=== PATIENT | female | born 1955 | race Caucasian/White ===

== ENCOUNTER 2024-11-20 09:11 | Outpatient (AMB) | payer MEDICARE, SELFPAY ==
--- OUTSIDE RECORDS SUMMARY | 2024-06-09 05:00 | XMS_ITS ---
Author Organization [facility] Address [address] [place] [address] Care Team Providers Care Dean Of Girls Name Role Phone DINAH PRAJAPATI MD Primary Care Provider BRETT Naylor [phone] Encounters Encounter Location Date Provider Diagnosis [facility] [address] [place] [address] 06/09/2024 BRETT SIM Plan Of Treatment No Information Progress Notes * OLEG ULLOALATRELLB: 953 (69 yo F)Acc No.[id number]:06/09/2024 Progress Notes Patient: PERI WILBURN Provider: Connie Sim MD :1955 A ge:69 Y S ex:Female Date:06/09/2024 Address:[facility] [address], [address] [place], [place] [id number] Pcp:DINAH PRAJAPATI MD * Electronic signature of NICK TAPIA MD on 11/20/2024 at 09:56 AM EDT Sign off status: Pending * Provider: Connie Sim MD Date: 0 06/09/2024 Generated for Printi ng/Faanibalg/eTransmitting on: 0 11/20/2024 09:56 AM EDT
--- OUTSIDE RECORDS SUMMARY | 2024-07-04 09:15 | XMS_ITS ---
Author Organization [facility] Address [address] [place] [address] Care Team Providers Care Gamb Cutter Name Role Phone DINAH PRAJAPATI MD Primary Care Provider BRETT Naylor [phone] REASON FOR VISIT left message Encounters Encounter Location Date Provider Diagnosis [facility] [address] [place] [address] 07/04/2024 BRETT SIM Plan Of Treatment No Information Progress Notes * ALF ULLOAB: 953 (69 yo F)Acc No.[id number]:07/04/2024 Progress Notes Patient: PERI WILBURN Provider: Connie Sim MD :1955 A ge:69 Y S ex:Female Date:07/04/2024 Address:[facility] [address], [address] [place], [place] [phone] Pcp:DINAH PRAJAPATI MD Subjective: * Chief Complaints: * L eft message * Electronic signature of NICK TAPIA MD on 11/20/2024 at 09:56 AM EDT Sign off status: Pending * Provider: Connie Sim MD Date: 07/04/2024 Generated for Elvirai matthew/Kavitha/eTransmitting on: 0 11/20/2024 09:56 AM EDT
--- OUTSIDE RECORDS SUMMARY | 2024-09-15 10:00 | XMS_ITS ---
Author Organization [facility] Address [address] [place] [address] Care Team Providers Care Process Description Writer Name Role Phone Ryan Loving Primary Care [...] CAPSULE BY MO UTH EVERY DAY Active Lisinopril 40 MG TAKE [...] 09/15/2024 Encounters Encounter Location Date Provider Diagnosis [address] [address] 09/15/2024 Ryan Loving Mixed hyperlipidemia E78.2 ; [...] system. There are likely to be multiple high school biology teacher inaccuracies despite chart review. PLAN OF TREATMENT [...] 1 CAPSULE BY MO UTH EVERY DAY Lisinopril 40 MG TAKE 1 [...] to fill the prescription in lesser amount. [facility] verified. Other This chart has been transcribed by a computerized dictation system. There are likely to be multiple high school biology teacher inaccuracies despite chart review. Pending Test Test Name Order Date LP+Non-HDL Cholesterol-[id number] 09/15/2024 Hepatic Function Panel [id number] 2024 Next Appt Details Follow Up: 3 Months, Reason: Follow up with [facility] Provider Name:Ryan morillo, 12/17/2024 01:00:00 PM, [address] [place] [address], [phone], Progress Notes * Examination Category Sub-Category Detail [...]
--- OUTSIDE RECORDS SUMMARY | 2024-10-02 08:45 | XMS_ITS ---
Author Organization [facility] Address [address] [place] [phone] Care Team Providers Care Thread Cutter Tender Name Role Phone Ryan Loving Primary Care Provider [phone] ALLERGIES Allergen (clinical drug ingredient) Drug/Non Drug [...] Notes Problem Acute diverticulitis (K57.92) Active confirmed 449980455 VITAL SIGNS Blood pressure systolic 132 mm Hg 10/03/19 25 Blood pressure diastolic 78 mm Hg 025 Heart Rate 80 /min 10/02/2024 Height 66 in 10/02/2024 Weight 199.0 lbs 10/02/2024 BMI 32.12 kg/m2 10/02/2024 Encounters Encounter Location Date Provider Diagnosis [address] [address] 10/02/2024 Ryan Loving Acute diverticulitis K57.92 ; [...] to fill the prescription in lesser amount. [facility] verified. 10/02/2024 Other This chart has been transcribed by a computerized dictation system. There are likely to be multiple logistics director inaccuracies despite chart review. PLAN OF TREATMENT [...] to fill the prescription in lesser amount. [facility] verified. Other This chart has been transcribed by a computerized dictation system. There are likely to be multiple logistics director inaccuracies despite chart review. Pending Test Test Name Order Date X ray : Hip, left 10/02/2024 Next Appt Details Follow Up: as scheduled, Suzanne son: Provider Name:Ryan morillo, 12/17/2024 01:00:00 PM, [address] [place] [address], [phone], Progress Notes * Examination Category Sub-Category Detail [...]
--- OUTSIDE RECORDS SUMMARY | 2024-10-05 04:42 | XMS_ITS ---
Author Organization [facility] Address [address] [place] [address] Care Team Providers Care Airport Control Operator Name Role Phone Ryan Loving Primary [...] Location Date Provider Diagnosis [facility] [address] [place] [address] 10/06/19 Ryan Loving PLAN OF TREATMENT Medication Medication Name Sig Start Date Stop Date Notes Cipro 500 MG 1 tablet Orally Twic e a day for 10 days 10/05/2024 metroNIDAZOLE 500 MG 1 tablet Orally Thr ee times a day for 10 day(s) 10/05/2024 Next Appt Details Provider Name:Ryan morillo, 12/17/2024 01:00:00 PM, [address] [place], [phone],
--- OUTSIDE RECORDS SUMMARY | 2024-10-13 05:45 | XMS_ITS ---
Author Organization Inder Shearer, Address [address] [place] [phone] Care Team Providers Care Night Club Manager Name Role Phone Ryan Loving Primary Care Provider ALLERGIES Allergen (clinical drug ingredient) Drug/Non Drug Allergy documented on EMR Reaction Allergy Type Onset Date Status Shrimp Flavor vomiting Drug Allergy Act dell RESULTS Component Value Reference Range Notes Urinalysis, Complete-[id number] Reviewed date:10/14/2024 07:01:46 PM Interpretation: Performing Lab:[facility] [address], [place], Phone - [phone], Director - Janae Notes/Report: Clinical Information:SRC: Clinical Information:SRC: Specific [place] 1.024 1.005-1.030 pH 6.0 5.0-7.5 Urine-Color Yellow [...] None seen/Few Yeast Trichomonas Comment Urine Culture, [id number] Reviewed date:10/14/2024 07:01:46 PM Interpretation: Performing Lab:[facility] [place], [address] [facility], [place], Phone - [phone], Director - Janae Notes/Report: Clinical Information:SRC:YESSENIA Clinical [...] Problem Left renal mass (N28.89) Active confirmed [id number] VITAL SIGNS Blood pressure systolic 150 mm Hg 10/14/19 25 Blood pressure diastolic 80 mm Hg 025 Heart Rate 78 /min 10/13/2024 Height 66 in 10/13/2024 Weight 196.8 lbs 10/13/2024 BMI 31.76 kg/m2 10/13/2024 Encounters Encounter Location Date Provider Diagnosis [address] [address] 10/13/2024 Ryan Loving Left renal mass N28. [...] system. There are likely to be multiple adoption coordinator inaccuracies despite chart review. PLAN OF TREATMENT [...] system. There are likely to be multiple adoption coordinator inaccuracies despite chart review. Pending Test Test Name Order Date MRI : Abdomen with and without Contrast 10/13/2024 Next Appt Details Follow Up: as scheduled, [place] son: Provider Name:Ryan morillo, 12/17/2024 01:00:00 PM, [address] [place] [address], [phone], Progress Notes * Examination Category Sub-Category Detail Notes Category Not es General Examination GENERAL APPEARANCE: in no ac [place] distress, well developed, well nourished HEAD: normocephalic, [...] mg 4 times a day by her primary education professor and needs a refill on the medication. [...]
--- OUTSIDE RECORDS SUMMARY | 2024-10-28 05:00 | XMS_ITS ---
Author Organization Inder Shearer Address [address] [place] [phone] Care Team Providers Care Software Publisher Name Role Phone Ryan Loving Primary Care [...] Atenolol 50 MG TAKE 1 TABLET BY [facility] EVERY DAY for 90 Active Atorvastatin Calcium [...] Fenofibrate 160 MG TAKE 1 TABLET BY [facility] EVERY DAY for 90 Active Famotidine 40 MG TAKE 1 TABLET BY [facility] DAILY AT BEDTIME Active Omeprazole 20 MG TAKE 1 CAPSULE BY [facility] EVERY DAY Active Jardiance 10 MG 1 tablet Orally Once a day for 30 day(s) Active Gabapentin 600 MG TAKE 1 TABLET BY [facility] EVERY DAY Active oxyCODONE HCl 5 MG 1 tablet as needed Orally Twice a day partial fill upon request for 30 days 10/28/2024 Active Gabapentin 800 MG 1 tablet Orally 3 ti mes a day for 30 day(s) Active Sertraline HCl 50 MG TAKE 1 TABLET BY [facility] EVERY DAY Active SOCIAL HISTORY Tobacco Use: [...] Encounter Location Date Provider Diagnosis Inder Shearer, [address] [address] 10/28/2024 Ryan Loving Mixed hyperlipidemia E78.2 ; [...] system. There are likely to be multiple machine tender inaccuracies despite chart review. PLAN OF [...] 20 MG TAKE 1 CAPSULE BY [facility] EVERY DAY Jardiance 10 MG 1 tablet [...] 50 MG TAKE 1 TABLET BY [facility] EVERY DAY Treatment Notes Assessment Notes Lumbar [...] to fill the prescription in lesser amount. [facility]. Other This chart has been transcribed by a computerized dictation system. There are likely to be multiple machine tender inaccuracies despite chart review. Next Appt Details Follow Up: as scheduled, [place] son: Provider Name:Ryan morillo, 12/17/2024 01:00:00 PM, [address] [place] [address], [phone], Progress Notes * Examination Category Sub-Category Detail Notes Category Not es General Examination GENERAL APPEARANCE: in no ac [place] distress, well developed, well nourished HEAD: normocephalic, [...]
[2024-11-20 09:30] VITALS: BMI 31.6
--- NOTE | 2024-11-20 09:30 | A.SPINEOV_ITS ---
Vital Signs 11/20/24 09:30 Height 5 ft 5 in Weight 190 lb BMI 31.6 Intake Visit Reasons: lbp Intake Note: Ms. Pisano is here today c/o back and leg pain. Astrobiologist Required: No Allergies No Known Allergies Allergy (Verified 11/20/24 09:31) Physical Exam Vital Signs: BMI result Body Mass Index 31.6 Assessment & Plan Assessment & Plan (1) Lumbar disc herniation: Code(s): M51.26 - Other intervertebral disc displacement, lumbar region Category: Medical Plan Dear Dr Loving, This is a very nice 69-year-old female who self-referred today for evaluation of pain radiating from her low back down into her anterior medial thigh. She reports that last Katrina Leigh in 2023 she was standing making meals and felt an acute onset of pain in her left abdomen that radiated around to her back. It took her breath away, it sounds like she had a vasovagal type event and she was brought to the hospital and was subsequently discharged. Within a week or so the pain transitioned into her right-sided low back and then radiated down along her anterior thigh in the middle toward the more medial side. The pain is aggravated with standing and walking. It gets better when she sits down. In fact riding in a car she is completely pain-free so she often will take long car rides just to help with the pain. 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 She was also sent to interventional pain management in [place] where she underwent an injection. The injection in her lumbar spine went well and she was pain-free in quite happy with that. Unfortunately it wore off. She is then subsequently got an injection in her hip without any signs of relief. Part of her workup included MRIs not only of the lumbar spine but the pelvis. Her lumbar spine MRI showed diffuse degenerative changes with multiple herniated discs. The patient's pelvic MRI apparently showed some issues with gluteal tendinopathy as well as arthritis in her hip. She went to see a surgeon in [facility] and was told that her hip was okay and did not need surgery. She was subsequently sent back to physical therapy and started on meloxicam. When she was on the meloxicam the pain was significantly better almost 2 where she thought things were back to normal but when she started physical therapy again the pain all returned. She subsequently stopped that. She comes in today after seeing us on an ad in a newspaper Flyer and was wondering if we could do anything to help her with minimally invasive techniques. She describes the pain currently as a dull ache/toothache. PMH: Hypertension, she is prediabetic, managed on Jardiance, high cholesterol, history of ulcerative colitis in his maintained on Rinvoq and has more less been symptom-free now for quite some time. She has never had surgery in her colon. History of osteoporosis on Repatha, history of some kind of workup for liver disease, sounds like she has NAFLD. Denies any history of cardiopulmonary, renal, bleeding disorders, blood clots, cancer, major abdominal surgery or infec tions. Social hx: Does not smoke, drink use any recreational drugs Medications: Repatha, atenolol, atorvastatin, Zetia, Pepcid, fenofibrate, gabapentin, Jardiance, lisinopril, losartan, omeprazole, Repatha, Rinvoq, sertraline, meloxicam, multivitamin, probiotic, calcium Allergies: None Physical exam: She walks with an antalgic gait but also has left knee pain so I think she is favoring the left knee more than the right leg. No pain with internal or external rotation of her hip. She does have some pain in her back with hip flexion and has positive straight leg raise at about 45 degrees which will give her pain into her anterior thigh. Motor examination 5/5 throughout lower extremities. Reflexes slightly reduced at the right patella, absent bilaterally at the Achilles. Imaging review: There is a lumbar MRI done at [facility] in April of this year showing multilevel degenerative disc disease with Modic endplate changes at multiple levels. At L4-5 she has bilateral lateral recess stenosis. At L3-4 on the right she has a small disc herniation which is hanging down behind the vertebral body ever so slightly but is compressing the right L4 nerve root. There is a component that extends into the right L3 foramen as well. At L2-3 she has some mild lateral recess stenosis. At L1-2 there is a herniated disc fragment which is extending down behind the vertebral body into the lateral recess near the axilla compressing the right L2 nerve root. Impression: 69-year-old female presents with acute onset of back pain and right anterior thigh pain which is aggravated with standing and walking. She was initially worked up for her hip but told at the [facility] office that it was not her hip. She was managed well on meloxicam for awhile until she started physical therapy which made things only worse. She is very frustrated because she can not do simple things like even just walking in a grocery store gives her significant discomfort. She did see pain management and underwent an injection in her lumbar spine which did give her significant relief for quite some time. No follow up injection was done, the doctor told her he could not do anything more for her. She is here today to be evaluated. She certainly has reasons to suspect this could be coming from her lumbar spine. In addition to the fact that the pain got so much better with a lumbar epidural injection, there are disc herniations at multiple levels of her lumbar spine on the right side. Many of them match the dermatome distribution when that would go into the anterior thigh. However, as we know, disc herniations have a tendency to resolve on their own and can disappear. Therefore before we can consider operating on her we will need to get an updated lumbar MRI to make sure that we are still dealing with up-to-date accurate anatomical picture. Additionally I will get a copy of the injection note from the pain management doctor to confirm where he injected as it gave her so much benefit. Once her MRIs done I will see her back. Thank you for allowing us to care for your patient. The total time spent with this visit with this patient was 45 minutes reviewing history, physical exam, lumbar imaging review, and implementation of treatment plan or further diagnostic testing Ryan Blakely MD,PhD [facility] [place] Orders: Orders MR lumbar spine wo con Today M51.26 - Other intervertebral disc displacement, lumbar region Coding Level of Care Code New Pt Level 4 (57580) Diagnoses Lumbar disc herniation M51.26
--- OUTSIDE RECORDS SUMMARY | 2024-11-20 09:56 | XMS_ITS | Encounter Summary ---
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 Name Role Phone Ryan Loving Primary Care Provider [phone] Encounter Details Date Type Department Care Team (Late st Contact Info) Description 03/11/2018 Ophthalmology Data Conversion [facility] Ophthalmology [address] [place] [id number] Coral Oconnor MD [address] [place] [id number] Social History Tobacco Use Types Packs/Day Years Used Date Smoking Tobacco: Never Assessed Comments Unknown Sex and Gender Information Value Date Recorded Sex Assigned at Female 03/17/2021 8:36 AM EST Legal Sex Female 6:34 PM EDT Gender Identity Female 03/17/2021 8:36 AM EST Sexual Orientation Straight 03/17/2021 8: 36 AM EST documented as of this encounter Plan of Treatment Not on file documented as of this encounter Visit Diagnoses Not on filedocumented in this encounter Care Teams Pretzel Twisting Machine Operator Relationship Specialty Start Date End Date Ryan Loving PCP - General Internal Medicine 01/30/21 documented as of this encounter
--- OUTSIDE RECORDS SUMMARY | 2024-11-20 09:56 | XMS_ITS | Patient Health Record ---
Author Organization Inder Shearer Address [address] [place] [id number] Care Team Providers Care Glass Frame Fitter Name Role Phone Ryan Loving Primary Care Provider ALLERGIES Allergen (clinical drug ingredient) Drug/Non Drug Allergy documented on EMR Reaction Allergy Type Onset Date Status Shrimp Flavor vomiting Drug Allergy Act dell RESULTS Component Value Reference Range Notes Hemoglobin [id number] Reviewed date:07/09/2024 08:43:26 AM Interpretation: Performing Lab:[facility], [address] [facility], Phone - [phone], Director - MDYamilethdry Notes/Report: Hemoglobin A1c 6.6 4.8-5.6 % . Prediabetes: 5.7 - 6.4 Diabetes: >6.4 Glycemic control for adults with diabetes: <7.0 Lipid Panel-[id number] Reviewed date:07/09/2024 08:43:26 AM Interpretation: Performing Lab:[facility], [facility] [place], Phone - [phone], Director - MDJodry Notes/Report: Cholesterol, Total 160 100-199 mg/dL Triglycerides 337 0-149 mg/dL HDL Cholesterol 6 >39 mg/dL Verified b y repeat analysis VLDL Cholesterol King 57 5-40 mg/dL LDL Chol Calc ([facility]) 97 0-99 mg/dL LDL Calc Comment: Comp. Metabolic Panel ([id number] Reviewed date:07/09/2024 08:43:26 AM Interpretation: Performing Lab:[facility], [address] [facility] [place], Phone - [phone], Director - MDJodry Notes/Report: Glucose 115 70-99 [...] 44-121 IU/L AST (SGOT) 44 0-40 IU/L Hemoglobin Q6c-[id number] Reviewed date:04/15/2024 07:14:40 AM Interpretation: Performing Lab:[facility] [address] [place] [address], Phone - [phone], Director - Janae Notes/Report: Hemoglobin A1c 6.7 4.8-5.6 % . Prediabetes: 5.7 - 6.4 Diabetes: >6.4 Glycemic control for adults with diabetes: <7.0 Lipid Panel-[id number] Reviewed date:04/15/2024 07:14:40 AM Interpretation: Performing Lab:[facility]na Garber [address] [place] [address], Phone - [phone], Director - Janae Notes/Report: Cholesterol, Total 181 100-199 mg/dL Triglycerides 491 0-149 mg/dL HDL Cholesterol 6 >39 mg/dL VLDL Cholesterol King 82 5-40 mg/dL LDL Chol Calc ([facility]) 93 0-99 mg/dL LDL Calc Comment: Comp. Metabolic Panel (13)-[id number] Reviewed date:04/15/2024 07:14:40 AM Interpretation: Performing Lab:Julianna Garber [address] [place] [address], Phone - [phone], Director - Janae Notes/Report: Glucose 129 70-99 mg/dL BUN 16 8-27 mg/dL Creatinine 0.92 0.57-1.00 mg/dL eGFR 67 >59 mL/min/1.73 BUN/Creatinine Ratio 17 12-28 Sodium 140 134-144 mmol/L Potassium 4.5 3.5-5.2 mmol/L Chloride 104 96-106 mmol/L Carbon Dioxide, Total 20 20-29 mmol/L Calcium 9.6 8.7-10.3 mg/dL Protein, Total 6.9 6.0-8.5 g/dL Albumin 4.4 3.8-4.8 g/dL Globulin, Total 2.5 1.5-4.5 g/dL Bilirubin, Total 0.3 0.0-1.2 mg/dL Alkaline Phosphatase 46 44-121 IU/L AST (SGOT) 39 0-40 IU/L MM Digital Mammo Screening Reviewed date:04/03/2024 07:29:30 PM Interpretation: Performing Lab: Notes/Report: PROCEDURE: MM Digital Mammo Screening INDICATION: Screening for breast cancer. No known palpable abnormalities. COMPARISON: Prior studies dating back to 03/08/2021 TECHNIQUE: Full-field digital CC and MLO 3D tomosynthesis images of both breasts were acquired. Computer-aided detection (CAD) was utilized in the interpretation of this study. DENSITY: The breast tissue is almost entirely fatty. FINDINGS: No suspicious masses, suspicious microcalcifications, or areas of architectural distortion are seen in either breast to suggest malignancy. There is a stable small mass in the retroareolar right breast. IMPRESSION: No mammographic evidence of malignancy. RECOMMENDATION: Annual mammographic screening BI-RADS: 2 (Benign) Lay letter mailed to patient WSN: [id number] Ordering Physician: Ryan Loving Dictated By: Shelley Looney MD Hip Comp 2 Views Left Reviewed date:10/06/2024 08:30:31 AM Interpretation: Performing Lab: Notes/Report: Hip Comp 2 Views Left Reason: left groin pain COMPARISON: 02/24/2024 FINDINGS: No fracture or dislocation. No lytic or blastic lesions. Well preserved joint space. Normal femoral head contour without evidence of avascular necrosis. Normal soft tissues. IMPRESSION: Normal. WSN: [id number] Ordering Physician: Ryan Loving Dictated By: Jacob Verduzco MD Urinalysis, Complete-[id number] Reviewed date:10/14/2024 07:01:46 PM Interpretation: Performing Lab:[facility], [address] [place] [address], Phone - [phone], Director - Janae Notes/Report: Clinical Information:SRC: Clinical Information:SRC: Specific [place] 1.024 1.005-1.030 pH 6.0 5.0-7.5 Urine-Color Yellow [...] None seen/Few Yeast Trichomonas Comment Urine Culture, Routine-[id number] Reviewed date:10/14/2024 07:01:46 PM Interpretation: Performing Lab:[facility], [address] [place] [address], [place], Phone - [phone], Director - Janae Notes/Report: Clinical Information:SRC: Clinical Information:SRC: Urine Culture, Routine Final report Result 1 No growth REASON FOR REFERRAL Reason Evaluate and treat / / MRI Available in CIS Diagnosis 1 Lumbar radiculopathy (M54.16) Referral Organization Ryan Loving Md Referring Provider First Name Ryan Referring Provider Last Name Inder Referring Provider Speciality Internal M edicine Referred Provider Specialty Physical The rapist General Notes Fely Palmer 09:18:18 AM EST > believe what she means is at wing, I will fa to the, , Miriam Hodge 03/11/2024 10:31:04 AM EST > resent because they said they didnt get the frist few pages Clinical Notes [facility], P: , F: [phone] Referral Priority Routine MEDICATIONS Medication SIG (Take, Route, Frequency, Duration) Notes Start Date End Date Status Fenofibrate 160 MG TAKE 1 TABLET BY LISA TH EVERY DAY for 90 Active Atenolol 50 MG TAKE 1 TABLET BY LISA TH EVERY DAY for 90 Active Gabapentin 800 MG TAKE 1 TABLET BY LISA TH THREE TIMES DAILY for 30 Active Atorvastatin Calcium 80 MG TAKE 1 TABLET BY MOUTH DAILY for 90 Active Klor-Con M10 10 MEQ 1 tablet Orally QD Active Atenolol 50 MG TAKE 1 TABLET BY LISA EVERY DAY Active Losartan Potassium 25 MG TAKE 1 TABLET B Y MOUTH DAILY for 90 Active Losartan Potassium 25 MG 1 tablet Orally Once a day for 90 Days Active Lisinopril 10 MG TAKE 1 TABLET BY LISA TH EVERY DAY Orally Once a day for 90 days Active Lisinopril 10 MG TAKE 1 TABLET BY LISA EVERY DAY Active Ezetimibe 10 MG TAKE 1 TABLET BY LISA TH DAILY for 90 Active Atorvastatin Calcium 80 MG 1 tablet Oral ly Once a day for 90 Days Active Sertraline HCl 50 MG TAKE 1 TABLET BY [place] [facility] EVERY DAY for 90 Active Fenofibrate 160 MG TAKE 1 TABLET BY LISA EVERY DAY Active Dicyclomine HCl 10 MG 1 capsules Orally Four times a day for 30 days Active Repatha 140 MG/ML 1 ml Subcutaneous ev quinn 2 weeks for 90 Days Active Lisinopril 40 MG [facility] Active Clobetasol Propionate 0.05 % 1 applicati on to affected area Externally Twice a day Active oxyCODONE HCl 5 MG 1 tablet as needed Orally Twice a day partial fill upon request for 30 days 10/28/2024 Active Lisinopril 40 MG TAKE 1 TABLET BY LISA EVERY DAY for 90 Active Sertraline HCl 50 MG TAKE 1 TABLET BY [facility] EVERY DAY Active Famotidine 40 MG TAKE 1 TABLET BY LISA DAILY AT BEDTIME Active Omeprazole 20 MG TAKE 1 CAPSULE BY [facility] EVERY DAY Active Cyclobenzaprine HCl 10 MG 1 tablet as ne eded Orally 3 times a day Active Rinvoq 15 MG 1 tablet Orally Once a day Active Jardiance 10 MG TAKE 1 TABLET BY LISA EVERY DAY for 90 Active Famotidine 40 MG TAKE 1 TABLET BY LISA DAILY AT BEDTIME for 90 Active IMMUNIZATIONS Vaccine Route Administration Date Status Comme nts *Influenza (Fluarix Quad) IM Intramuscular 12/05/2017 Admi nistered *Influenza (Fluarix Quad) IM Intramuscular 12/09/2018 Admi nistered *Influenza (Fluarix Quad) IM Intramuscular 12/22/2019 Admi nistered *Influenza (Fluarix Quad) IM Intramuscular 12/21/2020 Admi nistered *Influenza (Fluarix Quad) Unknown 01/11/2022 Administer ed Influenza (Flucelvax Quad) IM Intramuscular 11/26/2016 Adm inistered Influenza (Fluvirin) IM Intramuscular 12/17/2012 Administe red Influenza (Fluvirin) IM Intramuscular 11/30/2015 Administe red Influenza no Preserv 3 and > Unknown 12/06/2014 Pending Pneumococcal IM Intramuscular 03/10/2014 Administered Pneumococcal IM Intramuscular 12/22/2019 Administered PPD (Planted) TD Transdermal 03/09/2013 Administered PPD (Planted) ID Intradermal 03/08/2014 Administered Prevnar 20 Unknown 01/11/2022 Administered SOCIAL HISTORY Tobacco Use: Social History Observation [...] Interpretation Negative Section Notes: age 18-53, 1PPD age 18-53, 1PPD age 18-53, 1PPD age 18-53, 1PPD age 18-53, 1PPD age 18-53, 1PPD age 18-53, 1PPD age 18-53, 1PPD age 18-53, 1PPD age 18-53, 1PPD age 18-53, 1PPD age 18-53, 1PPD age 18-53, 1PPD age 18-53, 1PPD age 18-53, 1PPD age 18-53, 1PPD age 18-53, 1PPD age 18-53, 1PPD age 18-53, 1PPD age 1853, 1PPD age 1853, 1PPD age 1853, 1PPD age 1853, 1PPD PROBLEMS Problem Type ICD Code Onset Dates Problem Status W/U Status Risk SNOMED Code Notes Problem Depression (F32.9) Active confirmed 354 57262 Problem Anxiety (F41.9) Active confirmed 890853 02 Problem Left sided sciatica (M54.32) Active confirmed 618320094274700 Problem Psoriasis (L40.9) Active confirmed 9014 002 Problem Acute diverticulitis (K57.92) Active confirmed 198765036 Problem Mixed hyperlipidemia (E78.2) Active confirmed 590187927 Problem Essential hypertension (I10) Active confirmed 09765644 Problem Chronic fatigue (R53.82) Active confirmed 82049724 Problem Gastroesophageal reflux disease without esophagitis (K21.9) Active confirmed 155344341 Problem Primary osteoarthritis involving multiple joints (M15.0) Active confirmed 044689830 Problem Primary osteoarthritis of left knee (M17.12) Active confirmed 002744527889182 Problem Gout, unspecified cause, unspecified chronicity, unspecified site (M10.9) Active confirmed 80476132 Problem Contact dermatitis, contact dermatitis due to unspecified agent, unspecified contact dermatitis (L25.9) Active confirmed 06866955 Problem Spinal stenosis of lumbosacral region (M48.07) Active confirmed 57335239 Problem Ulcerative colitis with complication, unspecified location (K51.919) Active confirmed 14640686 Problem Lumbar radiculopathy (M54.16) Active confirmed 169034322 Problem Irritable bowel syndrome, unspecified type (K58.9) Active confirmed 86021298 Problem Type 2 diabetes mellitus without complication, without long-term current use of insulin (E11.9) Active confirmed 577672721 Problem Left renal mass (N28.89) Active confirmed 202351597 Problem At increased risk of exposure to COVID-19 virus (Z91.89) Active confirmed 081898110 Problem Major depressive disorder with single episode, 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) Active confirmed Single epi sode of major depression in full remission (93952072) Problem Leg cramps, sleep related (G47.62) Active confirmed 130231120 VITAL SIGNS Heart Rate 80 /min 10/28/2024 Blood pressure diastolic 80 mm Hg 10/28/2024 Height 66 in 10/28/2024 Blood pressure systolic 140 mm Hg 10/28/2024 Weight 193.6 lbs 10/28/2024 BMI 31.24 kg/m2 10/28/2024 Encounters Encounter Location Date Provider Diagnosis [address] [address] [facility] [address] [address] 01/21/2024 Ryan Juniorangeli Essential hypertensi on I10 ; Mixed hyperlipidemia E78.2 ; Ulcerative colitis with complication, unspecified location [...] and Primary osteoarthritis of left knee M17.[address] [address] 01/21/[address] [address] 02/24/2024 Ryan Loving Essential hypertensi on I10 ; Mixed hyperlipidemia E78.2 ; Ulcerative colitis with complication, unspecified location [...] ; Primary osteoarthritis of left knee M17.12 ; Lytic bone lesion of hip M89.8X5 and Left sided sciatica M54.[address] [address] 03/11/2024 Ryan Juniorangeli Mixed hyperlipidemia E78.2 ; Lumbar radiculopathy M54.16 [...] Primary osteoarthritis of left knee M17.12 and Left sided sciatica M54.[address] [address] 03/23/2024 Ryan Loving Essential hypertensi on I10 ; Mixed hyperlipidemia E78.2 ; Ulcerative colitis with complication, unspecified location [...] and Primary osteoarthritis of left knee M17.[address] [address] 04/22/2024 Ryan Loving Mixed hyperlipidemia E78.2 ; Lumbar [...] and Primary osteoarthritis of left knee M17.[address] [address] 04/23/2024 Ryan Loving [address] [address] 05/06/2024 Ryan Loving [address] [address] 05/21/2024 Ryan Loving Mixed hyperlipidemia E78.2 ; [...] knee M17.12 and Annual physical exam Z00.[address] [address] 07/16/2024 Ryan [facility] Mixed hyperlipidemia E78.2 ; Lumbar radiculopathy M54.16 [...] and Primary osteoarthritis of left knee M17.[address] [address] 08/20/2024 Ryan Juniorjavierm Mixed hyperlipidemia E78.2 ; Lumbar radiculopathy M54.16 [...] and Primary osteoarthritis of left knee M17.[address] [address] 09/15/2024 Ryan Pacheco[facility]ierm Mixed hyperlipidemia E78.2 ; Lumbar radiculopathy M54.16 [...] and Primary osteoarthritis of left knee M17.[address] [address] 10/02/2024 Ryan Loving Acute diverticulitis K57.92 ; Left groin pain R10.32 and Left sided sciatica M54.[address] [address] 10/05/2024 Ryan Loving [address] [address] 10/13/2024 Ryan Loving Left renal mass N28. 89 ; Left flank pain R10.9 ; Frequent urination R35.0 ; Irritable bowel syndrome, unspecified type K58.9 and Left sided sciatica M54.[address] [address] 10/28/2024 Ryan Loving Mixed hyperlipidemia E78.2 ; [...] Treatment Notes Treatment Clinical Notes Section Notes 03/11/2024 Mixed hyperlipidemia (ICD-10 - E78.2) 02/24/2024 Essential hypertension (ICD-10 - I10) 01/21/2024 Essential hypertension (ICD-10 - I10) 10/28/2024 Mixed hyperlipidemia (ICD-10 - E78.2) 10/13/2024 Left renal mass (ICD-10 - N28.89) 10/13/2024 Left flank pain (ICD-10 - R10.9) 10/02/2024 Left groin pain (ICD-10 - R10.32) 10/02/2024 Acute diverticulitis (ICD-10 - K57.92) 09/15/2024 Mixed hyperlipidemia (ICD-10 - E78.2) 08/20/2024 Mixed hyperlipidemia (ICD-10 - E78.2) 07/16/2024 Mixed hyperlipidemia (ICD-10 - E78.2) 03/11/2024 Lumbar radiculopathy (ICD-10 - M54.16) 03/23/2024 Essential hypertension (ICD-10 - I10) 05/21/2024 Mixed hyperlipidemia (ICD-10 - E78.2) 04/22/2024 Mixed hyperlipidemia (ICD-10 - E78.2) 10/28/2024 Lumbar [...] verified. 10/28/2024 Essential hypertension (ICD-10 - I10) 10/13/2024 Frequent urination (ICD-10 - R35.0) 10/02/2024 Left sided sciatica (ICD-10 - M54.32) [...] to fill the prescription in lesser amount. [facility] verified. 09/15/2024 Lumbar radiculopathy (ICD-10 - M54.16) In [...] to fill the prescription in lesser amount. [facility] verified. 09/15/2024 Essential hypertension (ICD-10 - I10) 08/20/2024 Lumbar radiculopathy (ICD-10 - M54.16) In [...] to fill the prescription in lesser amount. [facility] verified. 08/20/2024 Essential hypertension (ICD-10 - I10) 07/16/2024 Lumbar radiculopathy (ICD-10 - M54.16) In [...] to fill the prescription in lesser amount. [facility] verified. 07/16/2024 Essential hypertension (ICD-10 - I10) 05/21/2024 Lumbar radiculopathy (ICD-10 - M54.16) 05/21/2024 Essential hypertension (ICD-10 - I10) 04/22/2024 Lumbar radiculopathy (ICD-10 - M54.16) 04/22/2024 Essential hypertension (ICD-10 - I10) 03/23/2024 Mixed hyperlipidemia (ICD-10 - E78.2) 03/11/2024 Essential hypertension (ICD-10 - I10) 02/24/2024 Ulcerative colitis with complication, unspecified location (ICD-10 - K51.919) 01/21/2024 Mixed hyperlipidemia (ICD-10 - E78.2) 01/21/2024 Ulcerative colitis with complication, unspecified location (ICD-10 - K51.919) 02/24/2024 Mixed hyperlipidemia (ICD-10 - E78.2) 10/28/2024 Ulcerative colitis with complication, unspecified location (ICD-10 - K51.919) 10/13/2024 Irritable bowel syndrome, unspecified type (ICD-10 - K58.9) 09/15/2024 Ulcerative colitis with complication, unspecified location (ICD-10 - K51.919) 08/20/2024 Ulcerative colitis with complication, unspecified location (ICD-10 - K51.919) 07/16/2024 Ulcerative colitis with complication, unspecified location (ICD-10 - K51.919) 05/21/2024 Ulcerative colitis with complication, unspecified location (ICD-10 - K51.919) 04/22/2024 Ulcerative colitis with complication, unspecified location (ICD-10 - K51.919) 03/23/2024 Ulcerative colitis with complication, unspecified location (ICD-10 - K51.919) 03/11/2024 Ulcerative colitis with complication, unspecified location (ICD-10 - K51.919) 02/24/2024 Type 2 diabetes mellitus without complication, without long-term current use of insulin (ICD-10 - E11.9) 01/21/2024 Type 2 diabetes mellitus without complication, without long-term current use of insulin (ICD-10 - E11.9) 10/28/2024 Type 2 diabetes mellitus without complication, without long-term current use of insulin (ICD-10 - E11.9) 10/13/2024 Left sided sciatica (ICD-10 - M54.32) 09/15/2024 Type 2 diabetes mellitus without complication, without long-term current use of insulin (ICD-10 - E11.9) 08/20/2024 Type 2 diabetes mellitus without complication, without long-term current use of insulin (ICD-10 - E11.9) 07/16/2024 Type 2 diabetes mellitus without complication, without long-term current use of insulin (ICD-10 - E11.9) 05/21/2024 Type 2 diabetes mellitus without complication, without long-term current use of insulin (ICD-10 - E11.9) 04/22/2024 Type 2 diabetes mellitus without complication, without long-term current use of insulin (ICD-10 - E11.9) 03/23/2024 Type 2 diabetes mellitus without complication, without long-term current use of insulin (ICD-10 - E11.9) 03/11/2024 Type 2 diabetes mellitus without complication, without long-term current use of insulin (ICD-10 - E11.9) 02/24/2024 Leg cramps, sleep related (ICD-10 - G47.62) 01/21/2024 Leg cramps, sleep related (ICD-10 - G47.62) 08/20/2024 Leg cramps, sleep related (ICD-10 - G47.62) 03/11/2024 Leg cramps, sleep related (ICD-10 - G47.62) 07/16/2024 Leg cramps, sleep related (ICD-10 - G47.62) 03/23/2024 Leg cramps, sleep related (ICD-10 - G47.62) 05/21/2024 Leg cramps, sleep related (ICD-10 - G47.62) 04/22/2024 Leg cramps, sleep related (ICD-10 - G47.62) 02/24/2024 Chronic fatigue (ICD-10 - R53.82) 09/15/2024 Leg cramps, sleep related (ICD-10 - G47.62) 01/21/2024 Chronic fatigue (ICD-10 - R53.82) 10/28/2024 Leg cramps, sleep related (ICD-10 - G47.62) 04/22/2024 Chronic fatigue (ICD-10 - R53.82) 01/21/2024 Spinal stenosis of lumbosacral region (ICD-10 - M48.07) 03/23/2024 Chronic fatigue (ICD-10 - R53.82) 02/24/2024 Spinal stenosis of lumbosacral region (ICD-10 - M48.07) 03/11/2024 Chronic fatigue (ICD-10 - R53.82) 10/28/2024 Chronic fatigue (ICD-10 - R53.82) 07/16/2024 Chronic fatigue (ICD-10 - R53.82) 08/20/2024 Chronic fatigue (ICD-10 - R53.82) 09/15/2024 Chronic fatigue (ICD-10 - R53.82) 05/21/2024 Chronic fatigue (ICD-10 - R53.82) 09/15/2024 Spinal stenosis of lumbosacral region (ICD-10 - M48.07) 02/24/2024 Major depressive disorder with single episode, in remission (ICD-10 - F32.5) 03/11/2024 Spinal stenosis of lumbosacral region (ICD-10 - M48.07) 10/28/2024 Spinal stenosis of lumbosacral region (ICD-10 - M48.07) 01/21/2024 Major depressive disorder with single episode, in remission (ICD-10 - F32.5) 07/16/2024 Spinal stenosis of lumbosacral region (ICD-10 - M48.07) 08/20/2024 Spinal stenosis of lumbosacral region (ICD-10 - M48.07) 04/22/2024 Spinal stenosis of lumbosacral region (ICD-10 - M48.07) 05/21/2024 Spinal stenosis of lumbosacral region (ICD-10 - M48.07) 03/23/2024 Spinal stenosis of lumbosacral region (ICD-10 - M48.07) 03/23/2024 Major depressive disorder with single episode, in remission (ICD-10 - F32.5) 05/21/2024 Major depressive disorder with single episode, in remission (ICD-10 - F32.5) 01/21/2024 Irritable bowel syndrome, unspecified type (ICD-10 - K58.9) 10/28/2024 Major depressive disorder with single episode, in remission (ICD-10 - F32.5) 04/22/2024 Major depressive disorder with single episode, in remission (ICD-10 - F32.5) 08/20/2024 Major depressive disorder with single episode, in remission (ICD-10 - F32.5) 03/11/2024 Major depressive disorder with single episode, in remission (ICD-10 - F32.5) 09/15/2024 Major depressive disorder with single episode, in remission (ICD-10 - F32.5) 07/16/2024 Major depressive disorder with single episode, in remission (ICD-10 - F32.5) 02/24/2024 Irritable bowel syndrome, unspecified type (ICD-10 - K58.9) 10/28/2024 Irritable bowel syndrome, unspecified type (ICD-10 - K58.9) 05/21/2024 Irritable bowel syndrome, unspecified type (ICD-10 - K58.9) 07/16/2024 Irritable bowel syndrome, unspecified type (ICD-10 - K58.9) 09/15/2024 Irritable bowel syndrome, unspecified type (ICD-10 - K58.9) 03/23/2024 Irritable bowel syndrome, unspecified type (ICD-10 - K58.9) 01/21/2024 Gastroesophageal reflux disease without esophagitis (ICD-10 - K21.9) 03/11/2024 Irritable bowel syndrome, unspecified type (ICD-10 - K58.9) 04/22/2024 Irritable bowel syndrome, unspecified type (ICD-10 - K58.9) 08/20/2024 Irritable bowel syndrome, unspecified type (ICD-10 - K58.9) 02/24/2024 Gastroesophageal reflux disease without esophagitis (ICD-10 - K21.9) 08/20/2024 Gastroesophageal reflux disease without esophagitis (ICD-10 - K21.9) 05/21/2024 Gastroesophageal reflux disease without esophagitis (ICD-10 - K21.9) 09/15/2024 Gastroesophageal reflux disease without esophagitis (ICD-10 - K21.9) 07/16/2024 Gastroesophageal reflux disease without esophagitis (ICD-10 - K21.9) 04/22/2024 Gastroesophageal reflux disease without esophagitis (ICD-10 - K21.9) 03/23/2024 Gastroesophageal reflux disease without esophagitis (ICD-10 - K21.9) 03/11/2024 Gastroesophageal reflux disease without esophagitis (ICD-10 - K21.9) 10/28/2024 Gastroesophageal reflux disease without esophagitis (ICD-10 - K21.9) 02/24/2024 Psoriasis (ICD-10 - L40.9) 01/21/2024 Psoriasis (ICD-10 - L40.9) 09/15/2024 Psoriasis (ICD-10 - L40.9) 10/28/2024 Psoriasis (ICD-10 - L40.9) 08/20/2024 Psoriasis (ICD-10 - L40.9) 01/21/2024 Primary osteoarthritis of left knee (ICD-10 - M17.12) 07/16/2024 Psoriasis (ICD-10 - L40.9) 02/24/2024 Primary osteoarthritis of left knee (ICD-10 - M17.12) 05/21/2024 Psoriasis (ICD-10 - L40.9) 03/11/2024 Psoriasis (ICD-10 - L40.9) 03/23/2024 Psoriasis (ICD-10 - L40.9) 04/22/2024 Psoriasis (ICD-10 - L40.9) 10/28/2024 Primary osteoarthritis of left knee (ICD-10 - M17.12) 02/24/2024 Lytic bone lesion of hip (ICD-10 - M89.8X5) 03/11/2024 Primary osteoarthritis of left knee (ICD-10 - M17.12) 03/23/2024 Primary osteoarthritis of left knee (ICD-10 - M17.12) 04/22/2024 Primary osteoarthritis of left knee (ICD-10 - M17.12) 09/15/2024 Primary osteoarthritis of left knee (ICD-10 - M17.12) 05/21/2024 Primary osteoarthritis of left knee (ICD-10 - M17.12) 08/20/2024 Primary osteoarthritis of left knee (ICD-10 - M17.12) 07/16/2024 Primary osteoarthritis of left knee (ICD-10 - M17.12) 05/21/2024 Annual physical exam (ICD-10 - Z00.00) 03/11/2024 Left sided sciatica (ICD-10 - M54.32) In [...] to fill the prescription in lesser amount. [facility] verified. 02/24/2024 Left sided sciatica (ICD-10 - M54.32) In [...] to fill the prescription in lesser amount. [facility] verified. 05/21/2024 Other This chart has been transcribed by a computerized dictation system. There are likely to be multiple tire and tube repairer inaccuracies despite chart review. 04/22/2024 Other This chart has been transcribed by a computerized dictation system. There are likely to be multiple tire and tube repairer inaccuracies despite chart review. In accordance with Chapter 52 - Acts [...] to fill the prescription in lesser amount. [facility] verified. 03/23/2024 Other This chart has been transcribed by a computerized dictation system. There are likely to be multiple tire and tube repairer inaccuracies despite chart review. 02/24/2024 Other This chart has been transcribed by a computerized dictation system. There are likely to be multiple tire and tube repairer inaccuracies despite chart review. 03/11/2024 Other This chart has been transcribed by a computerized dictation system. There are likely to be multiple tire and tube repairer inaccuracies despite chart review. 07/16/2024 Other This chart has been transcribed by a computerized dictation system. There are likely to be multiple tire and tube repairer inaccuracies despite chart review. 08/20/2024 Other This chart has been transcribed by a computerized dictation system. There are likely to be multiple tire and tube repairer inaccuracies despite chart review. 09/15/2024 Other This chart has been transcribed by a computerized dictation system. There are likely to be multiple tire and tube repairer inaccuracies despite chart review. 01/21/2024 Other This chart has been transcribed by a computerized dictation system. There are likely to be multiple tire and tube repairer inaccuracies despite chart review. 10/02/2024 Other This chart has been transcribed by a computerized dictation system. There are likely to be multiple tire and tube repairer inaccuracies despite chart review. 10/13/2024 Other This chart has been transcribed by a computerized dictation system. There are likely to be multiple tire and tube repairer inaccuracies despite chart review. 10/28/2024 Other This chart has been transcribed by a computerized dictation system. There are likely to be multiple tire and tube repairer inaccuracies despite chart review. PLAN OF TREATMENT Pending Test Test Name Order Date MRI : Lumbosacral Spines 08/14/2021 Ultrasound : Right Upper Quadrant 2021 X ray : Knee, left 06/24/2023 X ray : Hip, left 10/02/2024 X ray : Hip, left 02/24/2024 X ray : Rib series, right 08/14/2021 X ray : SI joint, left 02/24/2024 Chest X-ray PA and lateral 03/11/2013 MAMMOGRAM, SCREENING 10/12/2014 MAMMOGRAM, SCREENING 11/30/2015 MAMMOGRAM, SCREENING 01/10/2023 MAMMOGRAM, SCREENING 12/12/2016 Ultrasound : Abdomen, upper 07/02/2019 Bone Density 10/12/2014 Bone Density 11/30/2015 Bone Density 01/10/2023 MRI : Pelvis 02/24/2024 Ultrasound : Kidneys and Bladder 021 MRI : Abdomen with and without Contrast 10/13/2024 GUAIAC, SINGLE SPECIMEN 03/11/2019 GUAIAC, SINGLE SPECIMEN 11/30/2015 *EKG 09/07/2020 Thin Prep 11/30/2015 URIC ACID 04/01/2017 HEMOGLOBIN A1C 04/01/2017 HEMOGLOBIN A1C 07/17/2017 HEMOGLOBIN A1C 12/12/2016 BASIC METABOLIC PANEL 08/14/2016 BASIC METABOLIC PANEL 06/08/2014 COMPREHENSIVE METABOLIC PANL 04/01/2017 LIPID PANEL 06/08/2014 LIPID PANEL 06/20/2015 LIPID PANEL 08/14/2016 LIPID PANEL 04/01/2017 LIPID PANEL 01/04/2016 LIPID PANEL 01/28/2015 HEPATIC FUNCTION PANEL 01/28/2015 HEPATIC FUNCTION PANEL 01/04/2016 HEPATIC FUNCTION PANEL 08/14/2016 HEPATIC FUNCTION PANEL 04/01/2017 HEPATIC FUNCTION PANEL 06/20/2015 HEPATIC FUNCTION PANEL 06/08/2014 HEPATIC FUNCTION PANEL 03/08/2014 THYROID PANEL 08/14/2016 THYROID PANEL 09/26/2015 25OH VITAMIN D 08/14/2016 COMPLETE CBC WITH DIFF 08/14/2016 LYME AB 09/26/2015 COMPLETE URINALYSIS 08/14/2016 MRI Lumbar Spine W/O Contrast 04/24/2024 BASIC METABOLIC PANEL 02/22/2022 CBC (COMPLETE BLOOD COUNT) WITH DIFF COMPREHENSIVE METABOLIC PANEL 03/23/2021 COMPREHENSIVE METABOLIC PANEL 04/12/2023 COMPREHENSIVE METABOLIC PANEL 10/24/2021 COVID-19 (NOVEL CORONAVIRUS) PCR 022 HEMOGLOBIN A1C 05/22/2022 HEMOGLOBIN A1C 02/22/2022 HEMOGLOBIN A1C 10/24/2021 HEMOGLOBIN A1C 04/12/2023 HEMOGLOBIN A1C 01/10/2023 HEMOGLOBIN A1C 03/23/2021 HEMOGLOBIN A1C 09/12/2022 HEPATIC FUNCTION PANEL 02/22/2022 LIPID PANEL 02/22/2022 LIPID PANEL 10/24/2021 LIPID PANEL 09/12/2022 LIPID PANEL 03/23/2021 LIPID PANEL 04/12/2023 MICROALBUMIN, URINE 10/24/2021 SEDIMENTATION RATE 09/12/2022 C. DIFFICILE TOXIN PCR 03/26/2023 CT Chest LDCT Lung Program 01/24/2022 LP+Non-HDL Cholesterol-[id number] 09/15/2024 Hepatic Function Panel [id number] 2024 Next Appt Details Provider Name:Ryan morillo, 12/17/2024 01:00:00 PM, [address] [facility], [place], [address], Insurance Providers Payer Name Payer Address Payer Phone Subscriber Number Group Number Insured Name Patient Relationship to Insured Coverage Start Date Coverage End Date MEDICARE [employer] [address] [place] [address] [id number] Kaylen Calderón am Self - patient is the insured [facility] [address] [place] [address] [id number] Kaylen Calderón am Self - patient is the insured MEDICAL (GENERAL) HISTORY Medical History History ICD Code HTN Hyperlipidemia DJD GERD Gout Anxiety Ulcerative Colitis Psoriasis Surgical History Surgery Date(Month/Year) Bladder sling 2006 Bilateral cataract removal Hospitalization History Reason Date(Month/Year) Low back, disc For above procedure
--- OUTSIDE RECORDS SUMMARY | 2024-11-20 09:56 | XMS_ITS | Encounter Summary ---
Author Organization [facility] Address [address] [place] [address] Care Team Providers Care Chief I Dispatcher Name Role Phone Ryan Loving Primary Care Provider [phone] Encounter Details Date Type Department Care Team (Late st Contact Info) Description 12/12/2017 Ophthalmology Data Conversion [facility] Medical [facility] Ophthalmology [address] [place] [address] Coral Oconnor MD [address] [place] [address] Social History Tobacco Use Types Packs/Day Years [...] on filedocumented in this encounter Care Teams Chief I Dispatcher Relationship Specialty Start Date End Date Ryan Loving PCP - General Internal Medicine 01/30/21 documented as of this encounter
--- OUTSIDE RECORDS SUMMARY | 2024-11-20 09:56 | XMS_ITS | Patient Health Record ---
Author Organization [facility] Address [address] [place] [phone] Care Team Providers Care Stores Assistant Name Role Phone DINAH LOVING MD Primary Care Provider BRETT Naylor Unavailable [phone] Allergies Allergen (clinical drug ingredient) Drug/Non Drug Allergy documented on EMR Reaction Allergy Type Onset Date Status Iodine Unknown Drug Allergy Active Reason For Referral No Information Medications Medication SIG (Take, Route, Frequency, Duration) Notes Start Date End Date Status Atenolol 50 MG Tablet 1 tablet Orally Once a day Active Rinvoq Active Methotrexate 6 pills q weekly Not-Taking/NH N Tylenol 325 MG Tablet 1 tablet as needed Orally every 4 hrs Active Furosemide 20 g Not-Takin g/NH N Zoloft 10 mg Active Stelara 45 MG/0.5ML Solution as directed Subcutaneous Not-Taking/NH N Omeprazole 40 MG Capsule Delayed Release 1 capsule 30 minutes before morning meal Orally Once a day Active Lisinopril 40 MG Tablet 1 tablet Orally Once a day Active Gabapentin 800 MG Tablet 1 tablet Orally three times a day Active Folic Acid 1 MG Tablet 1 tablet Orally Once a day Active Fenofibrate 160 MG Tablet 1 tablet Orally Once a day Active Famotidine 40 MG Tablet 1 tablet at bedtime as needed Orally Once a day Active Atorvastatin Calcium 20 MG Tablet 1 tablet Orally Once a day Active Social History Tobacco Use: Social History Observation Description Date Details (start date - stop date) Former Smoker NA - NA Social History Tobacco Use: Social Info Question Answer Notes Tobacco Control (Standard) Tobacco use: Former smoker How long has it been since you last smoked? Greater than 10 years Problems Problem Type SNOMED Code ICD Code Onset Dates Problem Status W/U Status Risk Notes Problem Localized, primary osteoarthritis of the pelvic region and thigh (119253679) Unilateral primary osteoarthritis, right hip (M16.11) Active confirmed Problem Lumbosacral spondylosis without myelopathy (84102107) Spondylosis without myelopathy or radiculopathy, lumbar region (M47.816) Active confirmed Problem Lumbar radiculopathy (642308305) Radiculopathy, lumbar region (M54.16) Active confirmed Vital Signs Heart Rate 66 /min 06/29/2024 Temperature 97.8 degrees Fahrenheit 06/29/2024 Oximetry 97 % 06/29/2024 Blood pressure diastolic 81 mm Hg 06/29/2024 Height 66 in 06/29/2024 Blood pressure systolic 143 mm Hg 06/29/2024 Weight 196 lbs 06/29/2024 BMI 31.63 kg/m2 06/29/2024 Encounters Encounter Location Date Provider Diagnosis [facility] [address] [place] [id number] [facility], [facility] M54.16 and Other fdc (current) drug therapy Z79.899 [facility] [address] [place] [phone] 05/30/2024 BRETT FARID Other long term acute care registered nurse (current) drug therapy Z79.899 and Unilateral primary osteoarthritis, right hip M16.11 [facility] [address] [place] [phone] 06/29/2024 BRETT FARID Other long term acute care registered nurse (current) drug therapy Z79.899 and Unilateral primary osteoarthritis, right hip M16.11 [facility] [address] [place] [phone] 06/29/2024 BRETT FARID Assessments Encounter Date Diagnosis (ICD Code) Assessment Notes Treatment Notes Treatment Clinical Notes Section Notes 05/11/2024 Radiculopathy, lumbar region (ICD-10 - M54.16) the last right lumbar 3 and 4 transforaminal epidural steroid injection done on 08/18/2023 offered the patient 90% relief of pain improve mobility activity analgesia range of motion and ability to stand, walk, sleep, package pick up objects from the floor, clean and cook without lower extremity pain for 6 months until the pain recurred again this monthSince the patient tried and failed conservative treatments for the last 6 months including nonsteroidals, Tylenol, physical therapy exercises with no relief and the patient is having functional difficulty with standing, sleeping, walking, lifting objects from the floor, bending, cleaning due to right lower extremity pain, also the patient is having weakness in the right lower extremity she came in limping today due to the pain, and has positive left straight leg raising test and motor power is 4/5 on the right lower extremity and decreased sensation in the right L 3 and L 4 distribution and the patient has neuro compressive findings on the MRIwhich was done on 08/30/2021 that revealed L3-4 severe foraminal narrowing L4-5 disc bulge and ligamentum flavum hypertrophy and central stenosis I reviewed the patient's new lumbar MRI done on 05/05/2024 that revealed degenerative disc disease in the lumbar spine that has progressed most pronounced at L4-5 and L3-4 lumbar facet arthropathies ligamentum flavum thickening starting from L2-3, moderate bilateral foraminal stenosis at L2-3, right paracentral disc extrusion at L3-4 impinging upon the right L4 nerve transversing nerve root, foraminal stenosis at L4-5 level regarding physical therapy continue physical therapy exercises regarding medication management, I reviewed the patient's current regimen and she can continue current regimen if needed at this point 05/11/2024 Other fdc (current) drug therapy (ICD-10 - Z79.899) 05/30/2024 Other long term acute care registered nurse (current) drug therapy (ICD-10 - Z79.899) 06/29/2024 Other fdc (current) drug therapy (ICD-10 - Z79.899) 06/29/2024 Unilateral primary osteoarthritis, right hip (ICD-10 - M16.11) regarding medication management, I reviewed the patient's current regimen and she can continue if needed regarding physical therapy, I recommended to the patient to continue physical therapy exercises regarding interventional procedures, I reviewed the patient's hip MRI study done on 03/05/2024 which was positive for mild osteoarthritis, the patient did not benefit from the right hip joint injection so I recommended to her to get in touch with her primary care physician for possible referral to an orthopedic surgeon for a second opinion and at this point I do not recommend repeating the injection. Thank you Dr. Loving for your kind referral, please feel free to call me with any questions 05/30/2024 Unilateral primary osteoarthritis, right hip (ICD-10 - M16.11) 05/30/2024 Other I reviewed the patient's right hip x-ray study done on 03/05/2024 that revealed mild right hip osteoarthritis, the patient has tried nonsteroidals, Tylenol, physical therapy exercises for the last 3 months with no relief she has functional difficulty standing, walking, sleeping due to the right groin pain she has positive pain on internal rotation of the right hip joint based on that and since the pain score is more than VAS of 6 I will offer her a trial of right hip joint injection to help relieve the pain today Plan Of Treatment No Information Insurance Providers Payer Name Payer Address Payer Phone Subscriber Number Group Number Insured Name Patient Relationship to Insured Coverage Start Date Coverage End Date Medicare [employer] [address] [place] [phone] [id number] PERI MORA AM Self - patient is the insured [employer] [place] [address] [place] [address] [id number] PERI MORA AM Self - patient is the insured Medical (General) History Medical History History ICD Code depression anxiety psoriasis mixed hyperlipidemia gastroesophageal reflux disease osteoarthritis gout spinal stenosis of lumbar ibs ulcerative colitis Surgical History Surgery Date(Month/Year) Hospitalization History Reason Date(Month/Year) ER for Pain at bilateral lower pelvic ar ea at [facility] 02/18/2024
--- OUTSIDE RECORDS SUMMARY | 2024-11-20 09:56 | XMS_ITS | Encounter Summary ---
Author Organization [facility] Address [address] [place] [address] Care Team Providers Care Building Attendant Name Role Phone Ryan Loving Primary Care Provider [phone] Encounter Details Date Type Department Care Team (Late st Contact Info) Description 10/17/2017 Ophthalmology Data Conversion [facility] Medical [facility] Ophthalmology [address] [place] [address] Coral Oconnor MD [address] [place] [address] Social History Tobacco Use Types Packs/Day Years [...] on filedocumented in this encounter Care Teams Building Attendant Relationship Specialty Start Date End Date Ryan Loving PCP - General Internal Medicine 01/30/21 documented as of this encounter
--- OUTSIDE RECORDS SUMMARY | 2024-11-20 09:56 | XMS_ITS | Encounter Summary ---
Author Organization [facility] Address [address] [place] [address] Care Team Providers Care Court Assistant Name Role Phone Ryan Loving Primary Care Provider [phone] Encounter Details Date Type Department Care Team (Late st Contact Info) Description 01/08/[address] [facility] Medical [facility] Ophthalmology [address] [place] [address] Coral Oconnor MD [address] [place] [id number] Social History Tobacco Use Types Packs/Day Years [...] on filedocumented in this encounter Care Teams Court Assistant Relationship Specialty Start Date End Date Ryan Loving PCP - General Internal Medicine 01/30/21 documented as of this encounter
--- OUTSIDE RECORDS SUMMARY | 2024-11-20 09:56 | XMS_ITS | Encounter Summary ---
Author Organization [facility] Address [address] [place] [address] Care Team Providers Care Furniture Installer Name Role Phone Ryan Loving Primary Care Provider [phone] Encounter Details Date Type Department Care Team (Late st Contact Info) Description 01/08/2018 Ophthalmology Data Conversion [facility] Medical [facility] Ophthalmology [address] [place] [address] Coral Oconnor MD [address] [place] [address] Social History Tobacco Use Types Packs/Day Years [...] on filedocumented in this encounter Care Teams Furniture Installer Relationship Specialty Start Date End Date Ryan Loving PCP - General Internal Medicine 01/30/21 documented as of this encounter
--- OUTSIDE RECORDS SUMMARY | 2024-11-20 09:56 | XMS_ITS | Encounter Summary ---
Author Organization [facility] Address [address] [place] [address] Care Team Providers Care Fifth Grade Teacher Name Role Phone Ryan Loving Primary Care Provider [phone] Encounter Details Date Type Department Care Team (Late st Contact Info) Description 12/05/2017 Ophthalmology Data Conversion [facility] Medical [facility] Ophthalmology [address] [place] [address] Coral Oconnor MD [address] [place] [id number] Social History Tobacco Use Types Packs/Day Years [...] on filedocumented in this encounter Care Teams Fifth Grade Teacher Relationship Specialty Start Date End Date Ryan Loving PCP - General Internal Medicine 01/30/21 documented as of this encounter
--- OUTSIDE RECORDS SUMMARY | 2024-11-20 09:57 | XMS_ITS | Clinical Summary ---
Author Organization [facility] Address [address] [place] [address] Care Team Providers Care Property Worker Name Role Phone Ryan Loving Primary Care Provider [phone] Allergies Active Allergy Reactions Criticality Noted Date Comments Shrimp Diarrhea,Vomiting 03/20/2021 Medications atenoloL (TENORMIN) 50 mg tablet SMARTSI Tablet(s) By Mouth Daily 1 Active lisinopriL (PRINIVIL,ZESTRI L) 40 mg tablet SMARTSI Tablet(s) By Mouth Daily 1 Active amoxicillin-clav ulanate (AUGMENTIN) 875-125 mg tablet 2 Active atorvastatin (LIPITOR) 20 mg tablet 1 Active azithromycin (ZITHROMAX) 250 mg tablet 1 Active famotidine (PEPCID) 40 mg tablet 1 Active fenofibrate (LOFIBRA) tablet 160 mg 1 Active moxifloxacin (VIGAMOX) 0.5% ophthalmic solution 1 drop in right eye four times a day begin 2 days prior to surgery 1 Active fluticasone propionate (FLONASE) 50 mcg/actuation nasal spray INSTILL 1 SPRAY IN EACH NOSTRIL ONCE DAILY FOR 30 DAYS 2 Active folic acid (FOLVITE) 1 mg tablet 1 Active furosemide (LASIX) 20 mg tablet 2 Active gabapentin (NEURONTIN) 600 mg tablet 2 Active mesalamine (CANASA) 1,000 mg suppository UNWRAP AND INSERT 1 SUPPOSITORY RECTALLY DAILY AT BEDTIME 1 Active methotrexate (TREXALL) 2.5 mg tablet 2 Active methylPREDNISolo ne (MEDROL DOSEPACK) 4 mg tablet 2 Active Nevanac 0.1 % ophthalmic suspension 1 drop in right eye four times a day begin 2 days prior to surgery 1 Active omeprazole (PriLOSEC) 20 mg capsule 1 Active omeprazole-sodiu m bicarbonate 40-1,680 mg packet Active prednisoLONE acetate (PRED FORTE) 1% ophthalmic suspension 1 drop in right eye four times a day Use after surgery until bottle is empty 1 Active sertraline (ZOLOFT) 50 mg tablet 2 Active Stelara 45 mg/0.5 mL injection (vial) 2 Active Active Problems Problem Noted Date Diagnosed Date Dermatochalasis of both upper eyelids 03/20/2021 Meibomian gland dysfunction (MGD) of both eyes 0 03/20/2021 Dry eyes, bilateral 03/20/2021 Social History Tobacco Use Types Packs/Day Years Used Date Smoking Tobacco: Never Smokeless Tobacco: Never Tobacco Cessation:Counseling Given: Not Answered Comments Unknown Sex and Gender Information Value Date Recorded Sex Assigned at Female 03/17/2021 8:36 AM EST Legal Sex Female 6:34 PM EDT Gender Identity Female 03/17/2021 8:36 AM EST Sexual Orientation Straight 03/17/2021 8: 36 AM EST Plan of Treatment Health Maintenance Due Date Last Done Comments Cologuard 1953 Colon Cancer Screening 1955 Colonoscopy 1953 FOBT / Fit Test 1953 Hepatitis C Screening 1953 Sigmoidoscopy 1953 Medicare AWV 1954 Mammogram 1993 Osteoporosis Screening 2003 Alcohol/Substance Use Screening 02/26/2024 Depression Screening and Follow-Up 02/26/2024 Health Care Proxy Review 02/26/2024 Social Drivers of Health Annual Screening 02/26/2024 DTaP,Tdap,and Td Vaccines (2 - Td or Tdap) 07/29/2024 07/29/2014 COVID-19 Vaccine ( season) 2024 01/29/2022, 07/15/2021, 11/23/2020, Additional history exists Influenza Vaccine (#1) 2024 , 12/22/2019, 12/09/2018, Additional history exists RSV Vaccine (60+ years old and patients) (1 - 1-dose 75+ series) 02/20/2028 Zoster Vaccines Completed 03/13/2021, 12/26, 01/29/2015 Pneumococcal Vaccine: 50+ Years Completed 01/11/2022, 12/22/2019 Hepatitis B Vaccines Aged Out No long er eligible based on patient's age to complete this topic Insurance [facility] MEDICARE Care Teams Property Worker Relationship Specialty Start Date End Date Ryan Loving PCP - General Internal Medicine 01/30/21
--- OUTSIDE RECORDS SUMMARY | 2024-11-20 09:57 | XMS_ITS | Encounter Summary ---
Author Organization [facility] Address [address] [place] [address] Care Team Providers Care Corporate Training Manager Name Role Phone Ryan Loving Primary Care Provider [phone] Encounter Details Date Type Department Care Team (Late st Contact Info) Description 10/17/2017 Ophthalmology Data Conversion [facility] Medical [facility] Ophthalmology [address] [place] [address] Coral Oconnor MD [address] [place] [phone] Social History Tobacco Use Types Packs/Day Years [...] on filedocumented in this encounter Care Teams Corporate Training Manager Relationship Specialty Start Date End Date Ryan Loving PCP - General Internal Medicine 01/30/21 documented as of this encounter
== END 2024-11-20 10:17 | disposition home or self-care (01) ==
LOC: HO.HNS 09:12
PROVIDERS: PCP Internal Medicine; Visit Provider Physician Assistant
DX: M51.26 Other intervertebral disc displacement, lumbar region (principal)
CPT/HCPCS: 99204

== ENCOUNTER → 2024-11-20 09:11 | Outpatient (BNVA) | payer MEDICARE, SELFPAY | PROVIDERS: PCP Internal Medicine; Visit Provider Physician Assistant | DX: M51.26 Other intervertebral disc displacement, lumbar region (principal) | CPT/HCPCS: 99202 ==

== ENCOUNTER 2024-12-18 10:43 | Outpatient (AMB) | payer MEDICARE, SELFPAY ==
--- OUTSIDE RECORDS SUMMARY | 2024-05-06 10:10 | XMS_ITS ---
Author Organization [facility] Address [address] [place] [address] Care Team Providers Care Sumac Tanner Name Role Phone Ryan Loving Primary Care Provider [phone] REASON FOR VISIT Referral Encounters Encounter Location Date Provider Diagnosis [facility] [address] [place] [address] 05/07/19 Ryan Loving PLAN OF TREATMENT Next Appt Details Provider Name:Ryan morillo, 03/16/2025 01:45:00 PM, [address] [place], [address],
--- OUTSIDE RECORDS SUMMARY | 2024-05-21 10:45 | XMS_ITS ---
Author Organization [facility] Address [address] [place] [address] Care Team Providers Care Soft Tile Setter Name Role Phone Ryan Loving Primary Care Provider ALLERGIES Allergen (clinical drug ingredient) Drug/Non Drug Allergy documented on EMR Reaction Allergy Type Onset Date Status Shrimp Flavor vomiting Drug Allergy Act dell RESULTS Component Value Reference Range Notes Hemoglobin [id number] Reviewed date:07/09/2024 08:43:26 AM Interpretation: Performing Lab:[facility] Jcarlos, [facility], Phone - [phone], Director - Janae Notes/Report: Hemoglobin A1c 6.6 4.8-5.6 % . Prediabetes: 5.7 - 6.4 Diabetes: >6.4 Glycemic control for adults with diabetes: <7.0 Lipid [id number] Reviewed date:07/09/2024 08:43:26 AM Interpretation: Performing Lab:[facility] Jcarlos, [employer] [place], Phone - [phone], Director - MDYamilethdry Notes/Report: Cholesterol, Total 160 100-199 mg/dL Triglycerides 337 0-149 mg/dL HDL Cholesterol 6 >39 mg/dL Verified b y repeat analysis VLDL Cholesterol King 57 5-40 mg/dL LDL Chol Calc ([facility]) 97 0-99 mg/dL LDL Calc Comment: Comp. Metabolic Panel (13)-[id number] Reviewed date:07/09/2024 08:43:26 AM Interpretation: Performing Lab:[facility] Jcarlos, [employer], Phone - [phone], Director - MDJodry Notes/Report: Glucose 115 70-99 [...] 50 MG TAKE 1 TABLET BY [facility] EVERY DAY for 90 Active Ezetimibe [...] 20 MG TAKE 1 CAPSULE BY [facility] EVERY DAY Active Folic Acid 1 [...] Methotrexate 2.5 MG TAKE 6 TABLETS BY [facility] 1 TIME A WEEK Active Klor-Con M10 10 MEQ 1 tablet Orally QD Active Atenolol 50 MG TAKE 1 TABLET BY LISA TH EVERY DAY Active Sertraline HCl 50 MG TAKE 1 TABLET BY [facility] EVERY DAY Active Gabapentin 800 MG [...] 05/21/2024 Encounters Encounter Location Date Provider Diagnosis [address] [address] 05/21/2024 Ryan Loving Mixed hyperlipidemia E78.2 ; [...] system. There are likely to be multiple dredge runner inaccuracies despite chart review. PLAN OF TREATMENT [...] 2.5 MG TAKE 6 TABLETS BY [facility] 1 TIME A WEEK Klor-Con M10 [...] system. There are likely to be multiple dredge runner inaccuracies despite chart review. Next Appt Details Follow Up: 2 Months, Reason: Follow-up Provider Name:Ryan Dowling Stuart morillo, 03/16/2025 01:45:00 PM, [address] [place] [address], [phone], Progress Notes * Examination Category Sub-Category Detail Notes Category Not es General Examination GENERAL APPEARANCE: in no ac erika distress, well developed, well nourished HEAD: normocephalic, [...]
--- OUTSIDE RECORDS SUMMARY | 2024-06-09 05:00 | XMS_ITS ---
Author Organization [facility] Address [address] [place] [address] Care Team Providers Care Narcotics Agent Name Role Phone DINAH PRAJAPATI MD Primary Care Provider BRETT Naylor [phone] Encounters Encounter Location Date Provider Diagnosis [facility] [address] [place] [address] 06/09/2024 BRETT SIM Plan Of Treatment No Information Progress Notes * OLEG ULLOALATRELLB: 953 (69 yo F)Acc No.[id number]:06/09/2024 Progress Notes Patient: PERI WILBURN Provider: Connie Sim MD :1955 A ge:69 Y S ex:Female Date:06/09/2024 Address:[facility] [address], [address] [place], [place] [id number] Pcp:DINAH PRAJAPATI MD * Electronic signature of NICK TAPIA MD on 12/18/2024 at 12:25 PM EDT Sign off status: Pending * Provider: Connie Sim MD Date: 0 06/09/2024 Generated for Printi ng/Faanibalg/eTransmitting on: 1 12:25 PM EDT
--- OUTSIDE RECORDS SUMMARY | 2024-07-04 09:15 | XMS_ITS ---
Author Organization [facility] Address [address] [place] [address] Care Team Providers Care 8Th Grade Teacher Name Role Phone DINHA PRAJAPATI MD Primary Care Provider BRETT Naylor [phone] REASON FOR VISIT left message Encounters Encounter Location Date Provider Diagnosis [facility] [address] [place] [address] 07/04/2024 BRETT SIM Plan Of Treatment No Information Progress Notes * ALF ULLOAB: 953 (69 yo F)Acc No.[id number]:07/04/2024 Progress Notes Patient: PERI WILBURN Provider: Connie Sim MD :1955 A ge:69 Y S ex:Female Date:07/04/2024 Address:[facility] [address], [address] [place], [place] [id number] Pcp:DINAH PRAJAPATI MD Subjective: * Chief Complaints: * L eft message * Electronic signature of NICK TAPIA MD on 12/18/2024 at 12:26 PM EDT Sign off status: Pending * Provider: Connie Smi MD Date: 0 07/04/2024 Generated for Elvirai matthew/Kavitha/eTransmitting on: 1 12:26 PM EDT
--- OUTSIDE RECORDS SUMMARY | 2024-07-16 10:15 | XMS_ITS ---
Author Organization Inder Shearer Address [address] [place] [phone] Care Team Providers Care Vice President [employer] Name Role Phone Ryan Loving Primary Care [...] Encounter Location Date Provider Diagnosis CAYLA Rendon [address] [place] [phone] 07/16/2024 Ryan Loving Mixed hyperlipidemia E78.2 ; [...] system. There are likely to be multiple film examiner inaccuracies despite chart review. PLAN OF TREATMENT Medication Medication Name Sig Start Date Stop Date Notes oxyCODONE HCl 5 MG 1 tablet as needed O rally Twice a day partial fill upon request for 30 days 07/16/2024 Gabapentin 800 MG 1 tablet Orally 3 ti mes a day for 30 day(s) Omeprazole 20 MG TAKE 1 CAPSULE BY [facility] EVERY DAY Folic Acid 1 MG TAKE 1 TABLET BY LISA EVERY DAY Hyoscyamine Sulfate 0.125 MG 1 tablet un emy the tongue and allow to dissolve as needed Sublingual Three times a day Famotidine 40 MG TAKE 1 TABLET BY LISA DAILY AT BEDTIME Methotrexate 2.5 MG TAKE 6 TABLETS BY [facility] 1 TIME A WEEK Sertraline HCl 50 MG TAKE 1 TABLET BY [facility] EVERY DAY Clobetasol Propionate 0.05 % 1 applicati on to affected area Externally Twice a day Magnesium 250 MG 1 tablet with a meal Orally Once a day for 30 day(s) Lisinopril 10 MG TAKE 1 TABLET BY [facility] EVERY DAY Repatha 140 MG/ML 1 [...] to fill the prescription in lesser amount. [place] PAT verified. Other This chart has been transcribed by a computerized dictation system. There are likely to be multiple film examiner inaccuracies despite chart review. Next Appt Details Follow Up: 4 Weeks, Reason: Follow-up Provider Name:Ryan morillo, 03/16/2025 01:45:00 PM, [address] [place] [address], [phone], Progress Notes * Examination Category Sub-Category Detail Notes Category Not es General Examination GENERAL APPEARANCE: in no ac pala distress, well developed, well nourished HEAD: normocephalic, [...] see orthopedic surgery. She saw a physician environmental engineering assistant at orthopedics office will give her [...]
--- OUTSIDE RECORDS SUMMARY | 2024-08-20 09:45 | XMS_ITS ---
Author Organization Inder Shearer Address [address] [place] [phone] Care Team Providers Care Screen Tender Name Role Phone Ryan Loving Primary Care [...] 2.5 MG TAKE 6 TABLETS BY [facility] 1 TIME A WEEK Active oxyCODONE HCl 5 MG 1 tablet as needed Orally Twice a day partial fill upon request for 30 days Active Omeprazole 20 MG TAKE 1 CAPSULE BY [facility] EVERY DAY Active Folic Acid 1 MG TAKE 1 TABLET BY LISA EVERY DAY Active Sertraline HCl 50 MG TAKE 1 TABLET BY [facility] EVERY DAY Active Clobetasol Propionate 0.05 % [...] Encounter Location Date Provider Diagnosis Inder Shearer [address] [phone] 08/20/2024 Ryan Loving Mixed hyperlipidemia E78.2 ; [...] system. There are likely to be multiple aerosol line operator inaccuracies despite chart review. PLAN OF TREATMENT [...] Methotrexate 2.5 MG TAKE 6 TABLETS BY [facility] 1 TIME A WEEK oxyCODONE HCl 5 MG 1 tablet as needed O rally Twice a day partial fill upon request for 30 days Omeprazole 20 MG TAKE 1 CAPSULE BY [facility] EVERY DAY Folic Acid 1 MG TAKE 1 TABLET BY [facility] EVERY DAY Sertraline HCl 50 MG TAKE 1 TABLET BY [facility] EVERY DAY Clobetasol Propionate 0.05 % [...] to fill the prescription in lesser amount. [facility] verified. Other This chart has been transcribed by a computerized dictation system. There are likely to be multiple aerosol line operator inaccuracies despite chart review. Next Appt Details Follow Up: 4 Weeks, Reason: Follow up with [facility] Provider Name:Ryan morillo, 03/16/2025 01:45:00 PM, [address] [place] [address], [phone], Progress Notes * Examination Category Sub-Category Detail [...]
--- OUTSIDE RECORDS SUMMARY | 2024-09-15 10:00 | XMS_ITS ---
Author Organization [facility] Address [address] [place] [address] Care Team Providers Care Tv Technician Name Role Phone Ryan Loving Primary Care Provider ALLERGIES Allergen (clinical drug ingredient) Drug/Non Drug Allergy documented on EMR Reaction Allergy Type Onset Date Status Shrimp Flavor vomiting Drug Allergy Act dell RESULTS Component Value Reference Range Notes LP+Non-HDL Cholesterol-[id number] 5 Reviewed date:12/11/2024 09:21:58 AM Interpretation: Performing Lab:[facility], [address] [place], [place], Phone - [phone], Director - Janae Notes/Report: Cholesterol, Total 79 100-199 mg/dL Triglycerides 292 0-149 mg/dL HDL Cholesterol 5 >39 mg/dL Verified b y repeat analysis VLDL Cholesterol King 44 5-40 mg/dL LDL Chol Calc ([facility]) 30 0-99 mg/dL LDL Calc Comment: Non-HDL Cholesterol 74 0-129 mg/dL Hepatic Function Panel (6)-[id number] Reviewed date:12/11/2024 09:21:58 AM Interpretation: Performing Lab:[facility], [address], [place], Phone - [phone], Director - Janae Notes/Report: Albumin 4.3 3.8-4.8 [...] Encounter Location Date Provider Diagnosis [facility] [address] [address] 09/15/2024 Ryan Loving Mixed hyperlipidemia E78.2 ; [...] system. There are likely to be multiple director radiation oncology inaccuracies despite chart review. PLAN OF TREATMENT [...] to fill the prescription in lesser amount. [place] PAT verified. Other This chart has been transcribed by a computerized dictation system. There are likely to be multiple director radiation oncology inaccuracies despite chart review. Next Appt Details Follow Up: 3 Months, Reason: Follow up with [facility] Provider Name:Ryan morillo, 03/16/2025 01:45:00 PM, [address] [place] [address], [phone], Progress Notes * Examination Category Sub-Category Detail Notes Category Not es General Examination GENERAL APPEARANCE: in no ac otoe-[place] distress, well developed, well nourished HEAD: normocephalic, [...]
--- OUTSIDE RECORDS SUMMARY | 2024-10-02 08:45 | XMS_ITS ---
[facility] Address [address] [place] [address] Care Team Providers Care Phys Assistant Name Role Phone Ryan Loving Primary Care [...] Notes Problem Acute diverticulitis (K57.92) Active confirmed 830522041 VITAL SIGNS Blood pressure systolic 132 mm Hg 10/03/19 25 Blood pressure diastolic 78 mm Hg 025 Heart Rate 80 /min 10/02/2024 Height 66 in 10/02/2024 Weight 199.0 lbs 10/02/2024 BMI 32.12 kg/m2 10/02/2024 Encounters Encounter Location Date Provider Diagnosis [address] [address] 10/02/2024 Ryan Loving Acute diverticulitis K57.92 ; [...] to fill the prescription in lesser amount. [facility] verified. 10/02/2024 Other This chart has been transcribed by a computerized dictation system. There are likely to be multiple kindergarten tutor inaccuracies despite chart review. PLAN OF TREATMENT [...] to fill the prescription in lesser amount. [facility] verified. Other This chart has been transcribed by a computerized dictation system. There are likely to be multiple kindergarten tutor inaccuracies despite chart review. Pending Test Test Name Order Date X ray : Hip, left 10/02/2024 Next Appt Details Follow Up: as scheduled, Suzanne son: Provider Name:Ryan Davidson ilia, 03/16/2025 01:45:00 PM, [address] [place] [address], [phone], Progress Notes * Examination Category Sub-Category Detail [...]
--- OUTSIDE RECORDS SUMMARY | 2024-10-05 04:42 | XMS_ITS ---
Author Organization [facility] Address [address] [place] [address] Care Team Providers Care Operating Systems Specialist Name Role Phone Ryan Loving Primary Care Provider [phone] REASON FOR VISIT Message MEDICATIONS Medication SIG (Take, Route, Fr equency, Duration) Notes Start Date End Date Status Cipro 500 MG 1 tablet Orally Twic e a day for 10 days 10/05/2024 Active metroNIDAZOLE 500 MG 1 tablet Orally Thr ee times a day for 10 day(s) 10/05/2024 Active Encounters Encounter Location Date Provider Diagnosis [facility] [address] [place] [address] 10/06/19 Ryan Loving PLAN OF TREATMENT Medication Medication Name Sig Start Date Stop Date Notes Cipro 500 MG 1 tablet Orally Twic e a day for 10 days 10/05/2024 metroNIDAZOLE 500 MG 1 tablet Orally Thr ee times a day for 10 day(s) 10/05/2024 Next Appt Details Provider Name:Ryan morillo, 03/16/2025 01:45:00 PM, [address] [place], [address],
--- OUTSIDE RECORDS SUMMARY | 2024-10-13 05:45 | XMS_ITS ---
Author Organization Inder Shearer, Address [address] [place] [phone] Care Team Providers Care Master Control Operator Name Role Phone Ryan Loving Primary Care Provider ALLERGIES Allergen (clinical drug ingredient) Drug/Non Drug Allergy documented on EMR Reaction Allergy Type Onset Date Status Shrimp Flavor vomiting Drug Allergy Act dell RESULTS Component Value Reference Range Notes Urinalysis, Complete-[id number] Reviewed date:10/14/2024 07:01:46 PM Interpretation: Performing Lab:[facility] [address], [place], Phone - [phone], Director - Janae Notes/Report: Clinical Information:SRC: Clinical Information:SRC: Specific [place] 1.024 1.005-1.030 pH 6.0 5.0-7.5 Urine-Color Yellow [...] None seen/Few Yeast Trichomonas Comment Urine Culture, Routine-[id number] Reviewed date:10/14/2024 07:01:46 PM Interpretation: Performing Lab:[facility] [place], [address] [facility], [place], Phone - [phone], Director - Janae Notes/Report: Clinical Information:SRC:YESSENIA Clinical [...] Problem Left renal mass (N28.89) Active confirmed [id number] VITAL SIGNS Blood pressure systolic 150 mm Hg 10/14/19 25 Blood pressure diastolic 80 mm Hg 025 Heart Rate 78 /min 10/13/2024 Height 66 in 10/13/2024 Weight 196.8 lbs 10/13/2024 BMI 31.76 kg/m2 10/13/2024 Encounters Encounter Location Date Provider Diagnosis [address] [address] 10/13/2024 Rayn Loving Left renal mass N28. 89 ; [...] system. There are likely to be multiple heavy mobile equipment operator inaccuracies despite chart review. PLAN OF [...] system. There are likely to be multiple heavy mobile equipment operator inaccuracies despite chart review. Pending Test Test Name Order Date MRI : Abdomen with and without Contrast 10/13/2024 Next Appt Details Follow Up: as scheduled, [place] son: Provider Name:Ryan morillo, 03/16/2025 01:45:00 PM, [address] [place] [address], [phone], Progress Notes * Examination Category Sub-Category Detail Notes Category Not es General Examination GENERAL APPEARANCE: in no ac [place] distress, well developed, well nourished HEAD: normocephalic, [...] mg 4 times a day by her truck bench mechanic and needs a refill on the medication. [...]
--- OUTSIDE RECORDS SUMMARY | 2024-10-28 05:00 | XMS_ITS ---
Author Organization Inder Shearer Address [address] [place] [phone] Care Team Providers Care Technical Solutions Engineer Name Role Phone Ryan Loving Primary Care [...] 50 MG TAKE 1 TABLET BY [facility] EVERY DAY for 90 Active Atenolol 50 MG TAKE 1 TABLET BY [facility] EVERY DAY for 90 Active Atorvastatin Calcium [...] Fenofibrate 160 MG TAKE 1 TABLET BY [facility] EVERY DAY for 90 Active Famotidine 40 MG TAKE 1 TABLET BY [facility] DAILY AT BEDTIME Active Omeprazole 20 MG TAKE 1 CAPSULE BY [facility] EVERY DAY Active Jardiance 10 MG 1 tablet Orally Once a day for 30 day(s) Active Gabapentin 600 MG TAKE 1 TABLET BY [facility] EVERY DAY Active oxyCODONE HCl 5 MG 1 tablet as needed Orally Twice a day partial fill upon request for 30 days 10/28/2024 Active Gabapentin 800 MG 1 tablet Orally 3 ti mes a day for 30 day(s) Active Sertraline HCl 50 MG TAKE 1 TABLET BY [facility] EVERY DAY Active SOCIAL HISTORY Tobacco [...] Encounter Location Date Provider Diagnosis Inder Shearer, [address] [address] 10/28/2024 Ryan Loving Mixed hyperlipidemia E78.2 ; [...] system. There are likely to be multiple pest control pilot inaccuracies despite chart review. PLAN OF TREATMENT [...] 20 MG TAKE 1 CAPSULE BY [facility] EVERY DAY Jardiance 10 MG 1 [...] 50 MG TAKE 1 TABLET BY [facility] EVERY DAY Treatment Notes Assessment Notes [...] to fill the prescription in lesser amount. [facility]. Other This chart has been transcribed by a computerized dictation system. There are likely to be multiple pest control pilot inaccuracies despite chart review. Next Appt Details Follow Up: as scheduled, [place] son: Provider Name:Ryan morillo, 03/16/2025 01:45:00 PM, [address] [place] [address], [phone], Progress Notes * Examination Category Sub-Category Detail [...]
--- OUTSIDE RECORDS SUMMARY | 2024-12-17 09:00 | XMS_ITS ---
Author Organization [facility] She[facility] Address [address] [place] [phone] Care Team Providers Care Volunteer Recruitment Coordinator Name Role Phone Ryan Loving Primary Care Provider [phone] ALLERGIES Allergen (clinical drug ingredient) Drug/Non Drug [...] Gabapentin 600 MG TAKE 1 TABLET BY [facility] EVERY DAY Active Famotidine 40 MG TAKE 1 TABLET BY [facility] DAILY AT BEDTIME Active Jardiance 10 MG 1 tablet Orally Once a day for 30 day(s) Active Omeprazole 20 MG TAKE 1 CAPSULE BY [facility] EVERY DAY Active Sertraline HCl 50 MG TAKE 1 TABLET BY [facility] EVERY DAY Active SOCIAL HISTORY Tobacco [...] Encounters Encounter Location Date Provider Diagnosis angeli [facility], [address] [place] [address] 12/17/2024 Ryan Pachecojavierilia Mixed hyperlipidemia E78.2 ; [...] system. There are likely to be multiple fermenter helper inaccuracies despite chart review. PLAN OF TREATMENT [...] system. There are likely to be multiple fermenter helper inaccuracies despite chart review. Next Appt Details Follow Up: 3 Months, Reason: Follow up with Dr. Loving Provider Name:Ryan morillo, 03/16/2025 01:45:00 PM, [address] [place] [address], [phone], Progress Notes * Examination Category Sub-Category Detail [...] has been evaluated by spine surgeon at [facility] and is supposed to undergo surgery. [...]
--- NOTE | 2024-12-18 11:23 | A.SPINEOV_ITS ---
Intake Visit Reasons: MRI f/u Intake Note: Ms. Pisano is here today to F/u on the results to her MRI. MRI done at [facility]. Claims Adjuster Required: No Allergies No Known Allergies Allergy (Verified 12/18/24 11:26) Assessment & Plan Assessment & Plan (1) Lumbar disc herniation: Code(s): M51.26 - Other intervertebral disc displacement, lumbar region Category: Medical Plan Dear Dr Loving, Dr Blakely and I saw Mrs Pisano in follow up today. She had the right anterior thigh pain with disc herniation at L1-2. We did a follow up MRI because her MRI was over 6-month-old just to be sure the disc herniation had not retracted itself. The new MRI done at [facility] shows that compared to the one done in April there slight worsening of the disc herniation in fact. The disc herniation hangs down behind the L2 vertebral body compressing the right L2 nerve root. She still has ongoing lateral recess stenosis at L3-4 on the right and right L3 foraminal stenosis which is severe, however that appears to have a scoliosis component. The current pain she has in her anterior thigh started abruptly last Katrina in his more consistent with an acute disc herniation rather than a chronic scoliotic curvature causing nerve compression. Therefore, Dr. Blakely is inclined to treat the right L1-2 disc herniation with a microdiskectomy. We quoted success rate at 80-90%. It is a day surgery, we reviewed all pertinent risks and benefits. If she continues to have anterior thigh pain after that we can discuss possible scoliosis correction but obviously that is more involved and given her history of osteoporosis, we think we can treat most of her pain with a simple minimally invasive diskectomy at L1-2. We have tentatively scheduled her for February 04. The patient was given risk and benefits of surgery including but not limited to infection, hematoma, nerve injury, durotomy, weakness, bowel/bladder injury, persistent pain, recurrent disc herniation. We also discussed the option to continue with conservative treatment and patient wishes to proceed with surgery. They are aware they should stop NSAIDs and Jardiance 7 days prior to surgery. All questions were answered to the best of our ability. If there is anything about this patients medical history that we have overlooked or concerns you have about us proceeding with surgery we would appreciate any input you can offer. Total amount of time spent in this visit was 20 minutes in discussion of sympt oms, lumbar MRI imaging results and subsequent plan of care Ryan Blakely MD,PhD [facility] Coding Level of Care Code Est Pt Level 3 (06993) Diagnoses Lumbar disc herniation M51.26
--- OUTSIDE RECORDS SUMMARY | 2024-12-18 12:25 | XMS_ITS | Encounter Summary ---
Author Organization [facility] Address [address] [place] [address] Care Team Providers Care Book Agent Name Role Phone Ryan Loving Primary Care Provider [phone] Encounter Details Date Type Department Care Team (Late st Contact Info) Description 12/12/2017 Ophthalmology Data Conversion [facility] Ophthalmology [address] [place] [id number] Coral Oconnor MD [address] [place] [id number] Social History Tobacco Use Types Packs/Day Years [...] on filedocumented in this encounter Care Teams Book Agent Relationship Specialty Start Date End Date Ryan Loving PCP - General Internal Medicine 01/30/21 documented as of this encounter
--- OUTSIDE RECORDS SUMMARY | 2024-12-18 12:25 | XMS_ITS | Patient Health Record ---
Author Organization Inder Shearer Address [address] [place] [id number] Care Team Providers Care Dross Skimmer Name Role Phone Ryan Loving Primary Care Provider ALLERGIES Allergen (clinical drug ingredient) Drug/Non Drug Allergy documented on EMR Reaction Allergy Type Onset Date Status Shrimp Flavor vomiting Drug Allergy Act dell RESULTS Component Value Reference Range Notes Hemoglobin [id number] Reviewed date:07/09/2024 08:43:26 AM Interpretation: Performing Lab:[facility], [address] [facility], Phone - [phone], Director - MDYamilethdry Notes/Report: Hemoglobin A1c 6.6 4.8-5.6 % . Prediabetes: 5.7 - 6.4 Diabetes: >6.4 Glycemic control for adults with diabetes: <7.0 Lipid Panel-[id number] Reviewed date:07/09/2024 08:43:26 AM Interpretation: Performing Lab:[facility], [facility] [place], Phone - [phone], Director - MDJodry Notes/Report: Cholesterol, Total 160 100-199 mg/dL Triglycerides 337 0-149 mg/dL HDL Cholesterol 6 >39 mg/dL Verified b y repeat analysis VLDL Cholesterol King 57 5-40 mg/dL LDL Chol Calc ([facility]) 97 0-99 mg/dL LDL Calc Comment: Comp. Metabolic Panel (13)-3 [id number] Reviewed date:07/09/2024 08:43:26 AM Interpretation: Performing Lab:[facility], [address] [facility] [place], Phone - [phone], Director - MDJodry Notes/Report: Glucose 115 70-99 [...] IU/L AST (SGOT) 44 0-40 IU/L Hemoglobin [id number] Reviewed date:04/15/2024 07:14:40 AM Interpretation: Performing Lab:Julianna Garber [address] [place] [address], Phone - [phone], Director - Janae Notes/Report: Hemoglobin A1c 6.7 4.8-5.6 % . Prediabetes: 5.7 - 6.4 Diabetes: >6.4 Glycemic control for adults with diabetes: <7.0 Lipid Panel-[id number] Reviewed date:04/15/2024 07:14:40 AM Interpretation: Performing Lab:Julianna Garber [address] [place] [address], Phone - [phone], Director - Janae Notes/Report: Cholesterol, Total 181 100-199 mg/dL Triglycerides 491 0-149 mg/dL HDL Cholesterol 6 >39 mg/dL VLDL Cholesterol King 82 5-40 mg/dL LDL Chol Calc ([facility]) 93 0-99 mg/dL LDL Calc Comment: Comp. Metabolic Panel (13)-3 [id number] Reviewed date:04/15/2024 07:14:40 AM Interpretation: Performing Lab:Julianna Garber [address] [place] [address], Phone - [phone], Director - Janae Notes/Report: Glucose 129 70-99 [...] 44-121 IU/L AST (SGOT) 39 0-40 IU/L LP+Non-HDL Cholesterol-89105 5 Reviewed date:12/11/2024 09:21:58 AM Interpretation: Performing Lab:Julianna Garber, [address] [place] [address], Phone - [phone], Director - MDEkaterinay Notes/Report: Cholesterol, Total 79 100-199 mg/dL Triglycerides 292 0-149 mg/dL HDL Cholesterol 5 >39 mg/dL Verified b y repeat analysis VLDL Cholesterol King 44 5-40 mg/dL LDL Chol Calc ([facility]) 30 0-99 mg/dL LDL Calc Comment: Non-HDL Cholesterol 74 0-129 mg/dL Hepatic Function Panel (6)-3 [id number] Reviewed date:12/11/2024 09:21:58 AM Interpretation: Performing Lab:Julianna Garber, [address] [facility], [place], Phone - [phone], Director - MDMark Notes/Report: Albumin 4.3 3.8-4.8 g/dL Bilirubin, Total 0.7 0.0-1.2 mg/dL Bilirubin, Direct 0.28 0.00-0.40 mg/dL Alkaline Phosphatase 59 49-135 IU/L AST (SGOT) 64 0-40 IU/L ALT (SGPT) 39 0-32 IU/L MM Digital Mammo Screening Reviewed date:04/03/2024 [...] (Benign) Lay letter mailed to patient WSN: [id number] Ordering Physician: Ryan Loving Dictated By: Shelley Looney MD Hip Comp 2 Views Left Reviewed date:10/06/2024 08:30:31 AM Interpretation: Performing Lab: Notes/Report: Hip Comp 2 Views Left Reason: left groin pain COMPARISON: 02/24/2024 FINDINGS: No fracture or dislocation. No lytic or blastic lesions. Well preserved joint space. Normal femoral head contour without evidence of avascular necrosis. Normal soft tissues. IMPRESSION: Normal. WSN: [id number] Ordering Physician: Ryan Loving Dictated By: Jacob Verduzco MD Urinalysis, Complete-[id number] Reviewed date:10/14/2024 07:01:46 PM Interpretation: Performing Lab:Julianna Garber, [address] [place] [address], [place], Phone - [phone], Director - Janae Notes/Report: Clinical Information:SRC: Clinical Information:SRC: Specific [place] 1.024 1.005-1.030 pH 6.0 5.0-7.5 Urine-Color Yellow [...] None seen/Few Yeast Trichomonas Comment Urine Culture, Routine-[id number] 7 Reviewed date:10/14/2024 07:01:46 PM Interpretation: Performing Lab:[facility], [address], [place], Phone - [phone], Director - Janae Notes/Report: Clinical Information:SRC:UC Clinical Information:SRC:UC Urine Culture, Routine Final report Result 1 No growth REASON FOR REFERRAL Reason Evaluate and treat / / MRI Available in CIS Diagnosis 1 Lumbar radiculopathy (M54.16) Referral Organization Ryan Loving Md Referring Provider First Name Ryan Referring Provider Last Name Inder Referring Provider Speciality Internal M edicine Referred Provider Specialty Physical The rapist General Notes Zacarias DESIREEFely 09:18:18 AM EST > believe what she means is at wing, I will fa to the, , Miriam Hodge 03/11/2024 10:31:04 AM EST > resent because they said they didnt get the frist few pages Clinical Notes [facility], P: , F: [phone] Referral Priority Routine MEDICATIONS Medication SIG (Take, Route, Frequency, Duration) Notes Start Date End Date Status Lisinopril 40 MG TAKE 1 TABLET BY LISA TH EVERY DAY Active Sertraline HCl 50 MG TAKE 1 TABLET BY MO UTH EVERY DAY for 90 Active Repatha 140 MG/ML 1 ml Subcutaneous ev quinn 2 weeks for 90 Days Active Dicyclomine HCl 10 MG 1 capsules Orally Four times a day for 30 days Active Lisinopril 10 MG TAKE 1 TABLET BY LISA TH EVERY DAY Orally Once a day for 90 days Active Clobetasol Propionate 0.05 % 1 applicati on to affected area Externally Twice a day Active Ezetimibe 10 MG TAKE 1 TABLET BY LISA TH DAILY for 90 Active Lisinopril 10 MG TAKE 1 TABLET BY LISA TH EVERY DAY Active Losartan Potassium 25 MG 1 tablet Orally Once a day for 90 Days Active Losartan Potassium 25 MG TAKE 1 TABLET B Y MOUTH DAILY for 90 Active Fenofibrate 160 MG TAKE 1 TABLET BY LISA TH EVERY DAY Active Atorvastatin Calcium 80 MG 1 tablet Oral ly Once a day for 90 Days Active Omeprazole 20 MG TAKE 1 CAPSULE BY MO UTH EVERY DAY for 90 Active Jardiance 10 MG TAKE 1 TABLET BY LISA TH EVERY DAY for 90 Active Gabapentin 800 MG TAKE 1 TABLET BY LISA TH THREE TIMES DAILY for 30 Active Famotidine 40 MG TAKE 1 TABLET BY LISA TH DAILY AT BEDTIME for 90 Active Lisinopril 40 MG TAKE 1 TABLET BY LISA EVERY DAY for 90 Active Gabapentin 800 MG 1 tablet Orally 3 ti mes a day for 30 day(s) Active Atenolol 50 MG TAKE 1 TABLET BY LISA EVERY DAY Active Klor-Con M10 10 MEQ 1 tablet Orally QD Active Cyclobenzaprine HCl 10 MG 1 tablet as ne eded Orally 3 times a day Active Gabapentin 600 MG TAKE 1 TABLET BY LISA EVERY DAY Active Rinvoq 15 MG 1 tablet Orally Once a day Active Famotidine 40 MG TAKE 1 TABLET BY LISA DAILY AT BEDTIME Active Atorvastatin Calcium 80 MG TAKE 1 TABLET BY MOUTH DAILY for 90 Active Fenofibrate 160 MG TAKE 1 TABLET BY LISA EVERY DAY for 90 Active Sertraline HCl 50 MG TAKE 1 TABLET BY [facility] EVERY DAY Active Jardiance 10 MG 1 tablet Orally Once a day for 30 day(s) Active oxyCODONE HCl 5 MG 1 tablet as needed Orally Twice a day partial fill upon request for 30 days 10/28/2024 Active Omeprazole 20 MG TAKE 1 CAPSULE BY [facility] EVERY DAY Active Atenolol 50 MG TAKE 1 TABLET BY LISA EVERY DAY for 90 Active IMMUNIZATIONS Vaccine Route Administration [...] age [age], 1PPD age [age], 1PPD age 18-53, 1PPD PROBLEMS Problem Type ICD Code Onset Dates Problem Status W/U Status Risk SNOMED Code Notes Problem Depression (F32.9) Active confirmed 354 [id number] Problem Anxiety (F41.9) Active confirmed 491379 02 Problem Left sided sciatica (M54.32) Active confirmed [id number] Problem Psoriasis (L40.9) Active confirmed 9014 002 Problem Acute diverticulitis (K57.92) Active confirmed 878786049 Problem Mixed hyperlipidemia (E78.2) Active confirmed 070922444 Problem Essential hypertension (I10) Active confirmed 78835603 Problem Chronic fatigue (R53.82) Active confirmed 98610255 Problem Gastroesophageal reflux disease without esophagitis (K21.9) Active confirmed 764890810 Problem Primary osteoarthritis involving multiple joints (M15.0) Active confirmed 233306049 Problem Primary osteoarthritis of left knee (M17.12) Active confirmed [id number] Problem Gout, unspecified cause, unspecified chronicity, unspecified site (M10.9) Active confirmed 43489701 Problem Contact dermatitis, contact dermatitis due to unspecified agent, unspecified contact dermatitis (L25.9) Active confirmed 65124765 Problem Spinal stenosis of lumbosacral region (M48.07) Active confirmed 57018259 Problem Ulcerative colitis with complication, unspecified location (K51.919) Active confirmed 73765145 Problem Lumbar radiculopathy (M54.16) Active confirmed 984693487 Problem Irritable bowel syndrome, unspecified type (K58.9) Active confirmed 62029360 Problem Type 2 diabetes mellitus without complication, without long-term current use of insulin (E11.9) Active confirmed 593167817 Problem Left renal mass (N28.89) Active confirmed 900254212 Problem At increased risk of exposure to COVID-19 virus (Z91.89) Active confirmed 271380026 Problem Major depressive disorder with single episode, 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) Active confirmed Single epi sode of major depression in full remission (48787307) Problem Leg cramps, sleep related (G47.62) Active confirmed 854901122 VITAL SIGNS Heart Rate 68 /min 12/17/2024 Blood pressure diastolic 70 mm Hg 12/17/2024 Height 66 in 12/17/2024 Blood pressure systolic 120 mm Hg 12/17/2024 Weight 191.2 lbs 12/17/2024 BMI 30.86 kg/m2 12/17/2024 Encounters Encounter Location Date Provider Diagnosis [address] [address] 01/14/2024 Ryan Loving [address] [address] 01/21/2024 Ryan Loving Essential hypertensi on I10 ; [...] Primary osteoarthritis of left knee M17.[address] [address] 01/21/[address] [address] 02/24/2024 Ryan Loving Essential hypertensi on I10 [...] M89.8X5 and Left sided sciatica M54.[address] [address] 03/11/2024 Ryan Loving Mixed hyperlipidemia E78.2 ; Lumbar [...] M17.12 and Left sided sciatica M54.[address] [address] 03/23/2024 Ryan Loving Essential hypertensi on I10 [...] Primary osteoarthritis of left knee M17.[address] [address] 04/22/2024 Ryan Pachecom Mixed hyperlipidemia E78.2 ; Lumbar radiculopathy M54.16 [...] Primary osteoarthritis of left knee M17.[address] [address] 04/23/[address] [address] 05/06/[address] [address] 05/21/2024 Ryan Juniorm Mixed hyperlipidemia E78.2 ; Lumbar radiculopathy M54.16 [...] M17.12 and Annual physical exam Z00.[address] [address] 07/16/2024 Ryan Juniorjavierm Mixed hyperlipidemia E78.2 ; Lumbar [...] Primary osteoarthritis of left knee M17.[address] [address] 08/20/2024 Ryan Loving Mixed hyperlipidemia E78.2 ; [...] Primary osteoarthritis of left knee M17.[address] [address] 09/15/2024 Ryan Loving Mixed hyperlipidemia E78.2 ; [...] Primary osteoarthritis of left knee M17.[address] [address] 10/02/2024 Ryan Loving Acute diverticulitis K57.92 ; Left groin pain R10.32 and Left sided sciatica M54.[address] [address] 10/05/2024 Ryan Juniorangeli [address] [address] 10/13/2024 Ryan Loving Left renal mass N28. 89 ; Left flank pain R10.9 ; Frequent urination R35.0 ; Irritable bowel syndrome, unspecified type K58.9 and Left sided sciatica M54.[address] [address] 10/28/2024 Ryan Loving Mixed hyperlipidemia E78.2 ; [...] Primary osteoarthritis of left knee M17.[address] [address] 12/17/2024 Ryan Loving Mixed hyperlipidemia E78.2 ; Lumbar [...] Treatment Notes Treatment Clinical Notes Section Notes 03/23/2024 Essential hypertension (ICD-10 - I10) 03/11/2024 Lumbar radiculopathy (ICD-10 - M54.16) 03/11/2024 Mixed hyperlipidemia (ICD-10 - E78.2) 02/24/2024 Essential hypertension (ICD-10 - I10) 01/21/2024 Essential hypertension (ICD-10 - I10) 12/17/2024 Mixed hyperlipidemia (ICD-10 - E78.2) 10/28/2024 Mixed hyperlipidemia (ICD-10 - E78.2) 10/13/2024 Left renal mass (ICD-10 - N28.89) 10/13/2024 Left flank pain (ICD-10 - R10.9) 10/02/2024 Left groin pain (ICD-10 - R10.32) 10/02/2024 Acute diverticulitis (ICD-10 - K57.92) 09/15/2024 Mixed hyperlipidemia (ICD-10 - E78.2) 08/20/2024 Mixed hyperlipidemia (ICD-10 - E78.2) 07/16/2024 Mixed hyperlipidemia (ICD-10 - E78.2) 04/22/2024 Mixed hyperlipidemia (ICD-10 - E78.2) 05/21/2024 Mixed hyperlipidemia (ICD-10 - E78.2) 12/17/2024 Lumbar radiculopathy (ICD-10 - M54.16) 12/17/2024 Essential hypertension (ICD-10 - I10) 10/28/2024 Lumbar radiculopathy (ICD-10 - M54.16) In [...] to fill the prescription in lesser amount. [facility] verified. 09/15/2024 Lumbar radiculopathy (ICD-10 - M54.16) [...] to fill the prescription in lesser amount. [facility] verified. 09/15/2024 Essential hypertension (ICD-10 - I10) [...] to fill the prescription in lesser amount. [facility] verified. 08/20/2024 Essential hypertension (ICD-10 - I10) [...] E78.2) 03/11/2024 Essential hypertension (ICD-10 - I10) 01/21/2024 Mixed hyperlipidemia (ICD-10 - E78.2) 01/21/2024 Ulcerative colitis with complication, unspecified location (ICD-10 - K51.919) 02/24/2024 Mixed hyperlipidemia (ICD-10 - E78.2) 02/24/2024 Ulcerative colitis with complication, unspecified location (ICD-10 - K51.919) 12/17/2024 Ulcerative colitis with complication, unspecified location (ICD-10 - K51.919) 10/28/2024 Ulcerative colitis with complication, unspecified location [...] use of insulin (ICD-10 - E11.9) 01/21/2024 Leg cramps, sleep related (ICD-10 - G47.62) 02/24/2024 Leg cramps, sleep related (ICD-10 - G47.62) 03/11/2024 Type 2 diabetes mellitus without complication, [...] use of insulin (ICD-10 - E11.9) 09/15/2024 Type 2 diabetes mellitus without complication, without long-term current use of insulin (ICD-10 - E11.9) 10/13/2024 Left sided sciatica (ICD-10 - M54.32) 10/28/2024 Type 2 diabetes mellitus without complication, without long-term current use of insulin (ICD-10 - E11.9) 12/17/2024 Type 2 diabetes mellitus without complication, without long-term current use of insulin (ICD-10 - E11.9) 01/21/2024 Chronic fatigue (ICD-10 - R53.82) 12/17/2024 Leg cramps, sleep related (ICD-10 - G47.62) 10/28/2024 Leg cramps, sleep related (ICD-10 - G47.62) 09/15/2024 Leg cramps, sleep related (ICD-10 - G47.62) 08/20/2024 Leg cramps, sleep related (ICD-10 - G47.62) 07/16/2024 Leg cramps, sleep related (ICD-10 - G47.62) 05/21/2024 Leg cramps, sleep related (ICD-10 - G47.62) 04/22/2024 Leg cramps, sleep related (ICD-10 - G47.62) 03/23/2024 Leg cramps, sleep related (ICD-10 - G47.62) 02/24/2024 Chronic fatigue (ICD-10 - R53.82) 03/11/2024 Leg cramps, sleep related (ICD-10 - G47.62) 01/21/2024 Spinal stenosis of lumbosacral region (ICD-10 - M48.07) 12/17/2024 Chronic fatigue (ICD-10 - R53.82) 10/28/2024 Chronic fatigue (ICD-10 - R53.82) 02/24/2024 Spinal stenosis of lumbosacral region (ICD-10 - M48.07) 09/15/2024 Chronic fatigue (ICD-10 - R53.82) 03/11/2024 Chronic fatigue (ICD-10 - R53.82) 08/20/2024 Chronic fatigue (ICD-10 - R53.82) 03/23/2024 Chronic fatigue (ICD-10 - R53.82) 07/16/2024 Chronic fatigue (ICD-10 - R53.82) 05/21/2024 Chronic fatigue (ICD-10 - R53.82) 04/22/2024 Chronic fatigue (ICD-10 - R53.82) 04/22/2024 Spinal stenosis of lumbosacral region (ICD-10 - M48.07) 03/23/2024 Spinal stenosis of lumbosacral region (ICD-10 - M48.07) 03/11/2024 Spinal stenosis of lumbosacral region (ICD-10 - M48.07) 02/24/2024 Major depressive disorder with single episode, in remission (ICD-10 - F32.5) 01/21/2024 Major depressive disorder with single episode, in remission (ICD-10 - F32.5) 12/17/2024 Spinal stenosis of lumbosacral region (ICD-10 - M48.07) 10/28/2024 Spinal stenosis of lumbosacral region (ICD-10 - M48.07) 09/15/2024 Spinal stenosis of lumbosacral region (ICD-10 - M48.07) 05/21/2024 Spinal stenosis of lumbosacral region (ICD-10 - M48.07) 08/20/2024 Spinal stenosis of lumbosacral region (ICD-10 - M48.07) 07/16/2024 Spinal stenosis of lumbosacral region (ICD-10 - M48.07) 12/17/2024 Major depressive disorder with single episode, in remission (ICD-10 - F32.5) 05/21/2024 Major depressive disorder with single episode, in remission (ICD-10 - F32.5) 04/22/2024 Major depressive disorder with single episode, in remission (ICD-10 - F32.5) 10/28/2024 Major depressive disorder with single episode, in remission (ICD-10 - F32.5) 01/21/2024 Irritable bowel syndrome, unspecified type (ICD-10 - K58.9) 07/16/2024 Major depressive disorder with single episode, in remission (ICD-10 - F32.5) 02/24/2024 Irritable bowel syndrome, unspecified type (ICD-10 - K58.9) 03/23/2024 Major depressive disorder with single episode, in remission (ICD-10 - F32.5) 09/15/2024 Major depressive disorder with single episode, in remission (ICD-10 - F32.5) 08/20/2024 Major depressive disorder with single episode, in remission (ICD-10 - F32.5) 03/11/2024 Major depressive disorder with single episode, in remission (ICD-10 - F32.5) 03/23/2024 Irritable bowel syndrome, unspecified type (ICD-10 - K58.9) 07/16/2024 Irritable bowel syndrome, unspecified type (ICD-10 - K58.9) 05/21/2024 Irritable bowel syndrome, unspecified type (ICD-10 - K58.9) 03/11/2024 Irritable bowel syndrome, unspecified type (ICD-10 - K58.9) 04/22/2024 Irritable bowel syndrome, unspecified type (ICD-10 - K58.9) 08/20/2024 Irritable bowel syndrome, unspecified type (ICD-10 - K58.9) 02/24/2024 Gastroesophageal reflux disease without esophagitis (ICD-10 - K21.9) 09/15/2024 Irritable bowel syndrome, unspecified type (ICD-10 - K58.9) 01/21/2024 Gastroesophageal reflux disease without esophagitis (ICD-10 - K21.9) 12/17/2024 Irritable bowel syndrome, unspecified type (ICD-10 - K58.9) 10/28/2024 Irritable bowel syndrome, unspecified type (ICD-10 - K58.9) 05/21/2024 Gastroesophageal reflux disease without esophagitis (ICD-10 - K21.9) 12/17/2024 Gastroesophageal reflux disease without esophagitis (ICD-10 - K21.9) 07/16/2024 Gastroesophageal reflux disease without esophagitis (ICD-10 - K21.9) 10/28/2024 Gastroesophageal reflux disease without esophagitis (ICD-10 - K21.9) 08/20/2024 Gastroesophageal reflux disease without esophagitis (ICD-10 - K21.9) 09/15/2024 Gastroesophageal reflux disease without esophagitis (ICD-10 - K21.9) 01/21/2024 Psoriasis (ICD-10 - L40.9) 02/24/2024 Psoriasis (ICD-10 - L40.9) 03/11/2024 Gastroesophageal reflux disease without esophagitis (ICD-10 - K21.9) 03/23/2024 Gastroesophageal reflux disease without esophagitis (ICD-10 - K21.9) 04/22/2024 Gastroesophageal reflux disease without esophagitis (ICD-10 - K21.9) 05/21/2024 Psoriasis (ICD-10 - L40.9) 12/17/2024 Psoriasis (ICD-10 - L40.9) 10/28/2024 Psoriasis (ICD-10 - L40.9) 01/21/2024 Primary osteoarthritis of left knee (ICD-10 - M17.12) 04/22/2024 Psoriasis (ICD-10 - L40.9) 02/24/2024 Primary osteoarthritis of left knee (ICD-10 - M17.12) 09/15/2024 Psoriasis (ICD-10 - L40.9) 03/23/2024 Psoriasis (ICD-10 - L40.9) 03/11/2024 Psoriasis (ICD-10 - L40.9) 08/20/2024 Psoriasis (ICD-10 - L40.9) 07/16/2024 Psoriasis (ICD-10 - L40.9) 07/16/2024 Primary osteoarthritis of left knee (ICD-10 - M17.12) 03/23/2024 Primary osteoarthritis of left knee (ICD-10 - M17.12) 12/17/2024 Primary osteoarthritis of left knee (ICD-10 - M17.12) 05/21/2024 Primary osteoarthritis of left knee (ICD-10 - M17.12) 03/11/2024 Primary osteoarthritis of left knee (ICD-10 - M17.12) 10/28/2024 Primary osteoarthritis of left knee (ICD-10 - M17.12) 08/20/2024 Primary osteoarthritis of left knee (ICD-10 - M17.12) 04/22/2024 Primary osteoarthritis of left knee (ICD-10 - M17.12) 02/24/2024 Lytic bone lesion of hip (ICD-10 - M89.8X5) 09/15/2024 Primary osteoarthritis of left knee (ICD-10 - M17.12) 03/11/2024 Left sided sciatica (ICD-10 - M54.32) [...] prescription in lesser amount. [facility] verified. 02/24/2024 Left sided sciatica (ICD-10 - [...] to fill the prescription in lesser amount. [facility] verified. 05/21/2024 Annual physical exam (ICD-10 - Z00.00) 05/21/2024 Other This chart has been transcribed by a computerized dictation system. There are likely to be multiple brief writer inaccuracies despite chart review. 01/21/2024 Other This chart has been transcribed by a computerized dictation system. There are likely to be multiple brief writer inaccuracies despite chart review. 04/22/2024 Other This chart has been transcribed by a computerized dictation system. There are likely to be multiple brief writer inaccuracies despite chart review. In accordance with [...] to fill the prescription in lesser amount. [facility] verified. 03/23/2024 Other This chart has been transcribed by a computerized dictation system. There are likely to be multiple brief writer inaccuracies despite chart review. 02/24/2024 Other This chart has been transcribed by a computerized dictation system. There are likely to be multiple brief writer inaccuracies despite chart review. 03/11/2024 Other This chart has been transcribed by a computerized dictation system. There are likely to be multiple brief writer inaccuracies despite chart review. 07/16/2024 Other This chart has been transcribed by a computerized dictation system. There are likely to be multiple brief writer inaccuracies despite chart review. 08/20/2024 Other This chart has been transcribed by a computerized dictation system. There are likely to be multiple brief writer inaccuracies despite chart review. 12/17/2024 Other This chart has been transcribed by a [employer] dictation system. There are likely to be multiple brief writer inaccuracies despite chart review. 09/15/2024 Other This chart has been transcribed by a computerized dictation system. There are likely to be multiple brief writer inaccuracies despite chart review. 10/02/2024 Other This chart has been transcribed by a computerized dictation system. There are likely to be multiple brief writer inaccuracies despite chart review. 10/13/2024 Other This chart has been transcribed by a computerized dictation system. There are likely to be multiple brief writer inaccuracies despite chart review. 10/28/2024 Other This chart has been transcribed by a computerized dictation system. There are likely to be multiple brief writer inaccuracies despite chart review. PLAN OF TREATMENT [...] lateral 03/11/2013 MAMMOGRAM, SCREENING 10/12/2014 MAMMOGRAM, SCREENING 12/12/2016 MAMMOGRAM, SCREENING 11/30/2015 MAMMOGRAM, SCREENING 01/10/2023 Ultrasound : Abdomen, upper 07/02/2019 Bone Density 11/30/2015 Bone Density 01/10/2023 Bone Density 10/12/2014 MRI : Pelvis 02/24/2024 Ultrasound : Kidneys and Bladder 021 MRI : Abdomen with and without Contrast 10/13/2024 GUAIAC, SINGLE SPECIMEN 11/30/2015 GUAIAC, SINGLE SPECIMEN 03/11/2019 *EKG 09/07/2020 Thin Prep 11/30/2015 URIC ACID 04/01/2017 HEMOGLOBIN A1C 07/17/2017 HEMOGLOBIN A1C 04/01/2017 HEMOGLOBIN A1C 12/12/2016 BASIC METABOLIC PANEL 06/08/2014 BASIC METABOLIC PANEL 08/14/2016 COMPREHENSIVE METABOLIC PANL 04/01/2017 LIPID PANEL 04/01/2017 LIPID PANEL 01/04/2016 LIPID PANEL 08/14/2016 LIPID PANEL 01/28/2015 LIPID PANEL 06/20/2015 LIPID PANEL 06/08/2014 HEPATIC FUNCTION PANEL 03/08/2014 HEPATIC FUNCTION PANEL 06/20/2015 HEPATIC FUNCTION PANEL 01/28/2015 HEPATIC FUNCTION PANEL 06/08/2014 HEPATIC FUNCTION PANEL 08/14/2016 HEPATIC FUNCTION PANEL 01/04/2016 HEPATIC FUNCTION PANEL 04/01/2017 THYROID PANEL 08/14/2016 THYROID PANEL 09/26/2015 25OH VITAMIN D 08/14/2016 COMPLETE CBC WITH DIFF 08/14/2016 LYME AB 09/26/2015 COMPLETE URINALYSIS 08/14/2016 MRI Lumbar Spine W/O Contrast 04/24/2024 BASIC METABOLIC PANEL 02/22/2022 CBC (COMPLETE BLOOD COUNT) WITH DIFF COMPREHENSIVE METABOLIC PANEL 04/12/2023 COMPREHENSIVE METABOLIC PANEL 10/24/2021 COMPREHENSIVE METABOLIC PANEL 03/23/2021 COVID-19 (NOVEL CORONAVIRUS) PCR 022 HEMOGLOBIN A1C 04/12/2023 HEMOGLOBIN A1C 10/24/2021 HEMOGLOBIN A1C 05/22/2022 HEMOGLOBIN A1C 03/23/2021 HEMOGLOBIN A1C 02/22/2022 HEMOGLOBIN A1C 09/12/2022 HEMOGLOBIN A1C 01/10/2023 HEPATIC FUNCTION PANEL 02/22/2022 LIPID PANEL 02/22/2022 LIPID PANEL 10/24/2021 LIPID PANEL 04/12/2023 LIPID PANEL 09/12/2022 LIPID PANEL 03/23/2021 MICROALBUMIN, URINE 10/24/2021 SEDIMENTATION RATE 09/12/2022 C. DIFFICILE TOXIN PCR 03/26/2023 CT Chest LDCT Lung Program 01/24/2022 Next Appt Details Provider Name:Ryan morillo, 03/16/2025 01:45:00 PM, [address] [place], [address], Insurance Providers Payer Name Payer Address Payer Phone Subscriber Number Group Number Insured Name Patient Relationship to Insured Coverage Start Date Coverage End Date MEDICARE [employer] [address] [facility] [place] [address] [id number] Kaylen Calderón am Self - patient is the insured [facility] [address] [place] [address] [id number] Kaylen Calderón am Self - patient is the insured MEDICAL (GENERAL) HISTORY Medical History History ICD Code HTN Hyperlipidemia DJD GERD Gout Anxiety Ulcerative Colitis Psoriasis Surgical History Surgery Date(Month/Year) Bladder sling 2006 Bilateral cataract removal Hospitalization History Reason Date(Month/Year) Low back, disc For above procedure
--- OUTSIDE RECORDS SUMMARY | 2024-12-18 12:25 | XMS_ITS | Encounter Summary ---
Author Organization [facility] Address [address] [place] [address] Care Team Providers Care Credit Officer Name Role Phone Ryan Loving Primary Care Provider [phone] Encounter Details Date Type Department Care Team (Late st Contact Info) Description 01/08/2018 Ophthalmology Data Conversion [facility] Ophthalmology [address] [place] [phone] Coral Ocononr MD [address] [place] [phone] Social History Tobacco Use Types Packs/Day Years [...] on filedocumented in this encounter Care Teams Credit Officer Relationship Specialty Start Date End Date Ryan Loving PCP - General Internal Medicine 01/30/21 documented as of this encounter
--- OUTSIDE RECORDS SUMMARY | 2024-12-18 12:25 | XMS_ITS | Patient Health Record ---
Author Organization [facility] Address [address] [place] [phone] Care Team Providers Care Computer Systems Analyst Name Role Phone DINAH LOVING MD Primary Care Provider BRETT Naylor Unavailable [phone] Allergies Allergen (clinical drug ingredient) Drug/Non Drug Allergy documented on EMR Reaction Allergy Type Onset Date Status Iodine Unknown Drug Allergy Active Reason For Referral No Information Medications Medication SIG (Take, Route, Frequency, Duration) Notes Start Date End Date Status Atenolol 50 MG Tablet 1 tablet Orally Once a day Active Rinvoq Active Methotrexate 6 pills q weekly Not-Taking/OR N Tylenol 325 MG Tablet 1 tablet as needed Orally every 4 hrs Active Furosemide 20 g Not-Takin g/OR N Zoloft 10 mg Active Stelara 45 MG/0.5ML Solution as directed Subcutaneous Not-Taking/OR N Omeprazole 40 MG Capsule Delayed Release [...] osteoarthritis of the pelvic region and thigh (926175824) Unilateral primary osteoarthritis, right hip (M16.11) Active confirmed Problem Lumbosacral spondylosis without myelopathy (50580657) Spondylosis without myelopathy or radiculopathy, lumbar region (M47.816) Active confirmed Problem Lumbar radiculopathy (720939069) Radiculopathy, lumbar region (M54.16) Active confirmed Vital Signs Heart Rate 66 /min 06/29/2024 Temperature 97.8 degrees Fahrenheit 06/29/2024 Oximetry 97 % 06/29/2024 Blood pressure diastolic 81 mm Hg 06/29/2024 Height 66 in 06/29/2024 Blood pressure systolic 143 mm Hg 06/29/2024 Weight 196 lbs 06/29/2024 BMI 31.63 kg/m2 06/29/2024 Encounters Encounter Location Date Provider Diagnosis [facility] [address] [place] [phone] [facility], [facility] M54.16 and Other installment account checker (current) drug therapy Z79.899 [facility] [address] [place] [phone] 05/30/2024 [facility] Other senior care (current) drug therapy Z79.899 and Unilateral primary osteoarthritis, right hip M16.11 [facility] [address] [place] [phone] 06/29/2024 [facility] Other senior care (current) drug therapy Z79.899 and Unilateral primary osteoarthritis, right hip M16.11 [facility] [address] [place] [phone] 06/29/2024 [facility] Assessments Encounter Date Diagnosis (ICD Code) Assessment Notes Treatment Notes Treatment Clinical Notes Section Notes 05/11/2024 Radiculopathy, lumbar region (ICD-10 - M54.16) the last right lumbar 3 and 4 transforaminal epidural steroid injection done on 08/18/2023 offered the patient 90% relief of pain improve mobility activity analgesia range of motion and ability to stand, walk, sleep, 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 sewing 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 operator objects from the floor, clean and cook [...] if needed at this point 05/11/2024 Other installment account checker (current) drug therapy (ICD-10 - Z79.899) 05/30/2024 Other senior care (current) drug therapy (ICD-10 - Z79.899) 06/29/2024 Other installment account checker (current) drug therapy (ICD-10 - Z79.899) 06/29/2024 [...] Start Date Coverage End Date Medicare B [address] [place] [phone] [id number] PERI MORA AM Self - patient is the insured [employer] [place] [address] [place] [address] [id number] PERI MORA AM Self - patient is the insured Medical (General) History Medical History History ICD Code depression anxiety psoriasis mixed hyperlipidemia gastroesophageal reflux disease osteoarthritis gout spinal stenosis of lumbar ibs ulcerative colitis Surgical History Surgery Date(Month/Year) Hospitalization History Reason Date(Month/Year) ER for Pain at bilateral lower pelvic [facility] 02/18/2024
--- OUTSIDE RECORDS SUMMARY | 2024-12-18 12:25 | XMS_ITS | Encounter Summary ---
Author Organization [facility] Address [address] [place] [address] Care Team Providers Care Oyster Tonger Name Role Phone Ryan Loving Primary Care Provider [phone] Encounter Details Date Type Department Care Team (Late st Contact Info) Description 03/11/2018 Ophthalmology Data Conversion [facility] Ophthalmology [address] [place] [phone] Coral Oconnor MD [address] [place] [address] Social History Tobacco Use Types Packs/Day Years [...] on filedocumented in this encounter Care Teams Oyster Tonger Relationship Specialty Start Date End Date Ryan Loving PCP - General Internal Medicine 01/30/21 documented as of this encounter
--- OUTSIDE RECORDS SUMMARY | 2024-12-18 12:25 | XMS_ITS | Encounter Summary ---
Author Organization [facility] Address [address] [place] [address] Care Team Providers Care Medicare Interviewer Name Role Phone Ryan Loving Primary Care Provider [phone] Encounter Details Date Type Department Care Team (Late st Contact Info) Description 10/17/2017 Ophthalmology Data Conversion [facility] Ophthalmology [address] [place] [address] oCral Oconnor MD [address] [place] [phone] Social History Tobacco Use Types Packs/Day Years [...] on filedocumented in this encounter Care Teams Medicare Interviewer Relationship Specialty Start Date End Date Ryan Loving PCP - General Internal Medicine 01/30/21 documented as of this encounter
--- OUTSIDE RECORDS SUMMARY | 2024-12-18 12:25 | XMS_ITS | Encounter Summary ---
Author Organization [facility] Address [address] [place] [address] Care Team Providers Care Centrifuge Separator Operator Name Role Phone Ryan Loving Primary Care Provider [phone] Encounter Details Date Type Department Care Team (Late st Contact Info) Description 01/08/2018 Ophthalmology Data Conversion [facility] Medical [facility] Ophthalmology [address] [place] [phone] Coral Oconnor MD [address] [place] [phone] Social History Tobacco Use Types Packs/Day Years [...] on filedocumented in this encounter Care Teams Centrifuge Separator Operator Relationship Specialty Start Date End Date Ryan Loving PCP - General Internal Medicine 01/30/21 documented as of this encounter
--- OUTSIDE RECORDS SUMMARY | 2024-12-18 12:25 | XMS_ITS | Encounter Summary ---
Author Organization [facility] Address [address] [place] [address] Care Team Providers Care Software Release Manager Name Role Phone Ryan Loving Primary Care Provider [phone] Encounter Details Date Type Department Care Team (Late st Contact Info) Description 12/05/2017 Ophthalmology Data Conversion [facility] Medical [facility] Ophthalmology [address] [place] [phone] Coral Oconnor MD [address] [place] [address] Social History Tobacco Use Types Packs/Day Years [...] on filedocumented in this encounter Care Teams Software Release Manager Relationship Specialty Start Date End Date Ryan Loving PCP - General Internal Medicine 01/30/21 documented as of this encounter
--- OUTSIDE RECORDS SUMMARY | 2024-12-18 12:27 | XMS_ITS | Encounter Summary ---
Author Organization [facility] Address [address] [place] [address] Care Team Providers Care Laundrette Owner Name Role Phone Ryan Loving Primary Care Provider [phone] Encounter Details Date Type Department Care Team (Late st Contact Info) Description 10/17/2017 Ophthalmology Data Conversion [facility] Medical [facility] Ophthalmology [address] [place] [address] Coral Oconnor MD [address] [place] [address] Social History Tobacco Use Types Packs/Day Years [...] on filedocumented in this encounter Care Teams Laundrette Owner Relationship Specialty Start Date End Date Ryan Loving PCP - General Internal Medicine 01/30/21 documented as of this encounter
--- OUTSIDE RECORDS SUMMARY | 2024-12-18 12:27 | XMS_ITS | Clinical Summary ---
Author Organization [facility] Address [address] [place] [address] Care Team Providers Care Political Analyst Name Role Phone Ryan Loving Primary Care Provider [phone] Allergies Active Allergy Reactions Criticality Noted Date [...] patient's age to complete this topic Insurance [facility] MEDICARE Care Teams Political Analyst Relationship Specialty Start Date End Date Ryan Loving PCP - General Internal Medicine 01/30/21
== END 2024-12-18 11:58 | disposition home or self-care (01) ==
LOC: HO.HNS 10:43
PROVIDERS: PCP Internal Medicine; Visit Provider Physician Assistant
DX: M51.26 Other intervertebral disc displacement, lumbar region (principal)
CPT/HCPCS: 99213

== ENCOUNTER → 2024-12-18 10:43 | Outpatient (BNVA) | payer MEDICARE, SELFPAY | PROVIDERS: PCP Internal Medicine; Visit Provider Physician Assistant | DX: G89.29 Other chronic pain (principal); M25.562 Pain in left knee; S22.000D Wedge compression fracture of unspecified thoracic vertebra, subsequent encounter for fracture with routine healing; M47.814 Spondylosis without myelopathy or radiculopathy, thoracic region | CPT/HCPCS: 99212 ==

== ENCOUNTER 2025-02-04 06:45 | Day surgery (SDC) | payer MEDICARE, SELFPAY ==
--- OUTSIDE RECORDS SUMMARY | 2024-05-06 09:10 | XMS_ITS ---
Author Organization [facility] Address [address] [place] [address] Care Team Providers Care Head Cashier Name Role Phone Ryan Loving Primary Care Provider [phone] REASON FOR VISIT Referral Encounters Encounter Location Date Provider Diagnosis [facility] [address] [place] [address] 05/07/19 Ryan Loving PLAN OF TREATMENT Next Appt Details Provider Name:Ryan morillo, 03/16/2025 01:45:00 PM, [address] [place], [address],
--- OUTSIDE RECORDS SUMMARY | 2024-05-21 09:45 | XMS_ITS ---
Author Organization [facility] Address [address] [place] [address] Care Team Providers Care Steam And Gas Turbines Assembler Name Role Phone Ryan Loving Primary Care Provider ALLERGIES Allergen (clinical drug ingredient) Drug/Non Drug Allergy documented on EMR Reaction Allergy Type Onset Date Status Shrimp Flavor vomiting Drug Allergy Act dell RESULTS Component Value Reference Range Notes Hemoglobin [id number] Reviewed date:07/09/2024 08:43:26 AM Interpretation: Performing Lab:[facility] Jcarlos, [facility], Phone - [phone], Director - Janae Notes/Report: Hemoglobin A1c 6.6 4.8-5.6 % . Prediabetes: 5.7 - 6.4 Diabetes: >6.4 Glycemic control for adults with diabetes: <7.0 Lipid Panel-[id number] Reviewed date:07/09/2024 08:43:26 AM Interpretation: Performing Lab:[facility] J[facility]los, [facility] [facility], Phone - [phone], Director - MDYamilethdry Notes/Report: Cholesterol, Total 160 100-199 mg/dL Triglycerides 337 0-149 mg/dL HDL Cholesterol 6 >39 mg/dL Verified b y repeat analysis VLDL Cholesterol King 57 5-40 mg/dL LDL Chol Calc ([facility]) 97 0-99 mg/dL LDL Calc Comment: Comp. Metabolic Panel ([id number] Reviewed date:07/09/2024 08:43:26 AM Interpretation: Performing Lab:[facility] J[facility]los, [employer], Phone - [phone], Director - MDJodry Notes/Report: Glucose 115 70-99 mg/dL BUN 16 8-27 mg/dL Creatinine 1.02 0.57-1.00 mg/dL eGFR 59 >59 mL/min/1.73 BUN/Creatinine Ratio 16 12-28 Sodium 140 134-144 mmol/L Potassium 4.6 3.5-5.2 mmol/L Chloride 102 96-106 mmol/L Carbon Dioxide, Total 22 20-29 mmol/L Calcium 9.9 8.7-10.3 mg/dL Protein, Total 6.7 6.0-8.5 g/dL Albumin 4.3 3.8-4.8 g/dL Globulin, Total 2.4 1.5-4.5 g/dL Bilirubin, Total 0.5 0.0-1.2 mg/dL Alkaline Phosphatase 44 44-121 IU/L AST (SGOT) 44 0-40 IU/L REASON FOR VISIT (IN OFFICE), Medicare AWV MEDICATIONS Medication SIG (Take, Route, Frequency, Duration) Notes Start Date End Date Status Rinvoq 15 MG 1 tablet Orally Once a day Active Famotidine 40 MG TAKE 1 TABLET BY LISA DAILY AT BEDTIME for 90 Active Diclofenac Sodium 75 MG 1 tablet as need ed Orally Twice a day Active Sertraline HCl 50 MG TAKE 1 TABLET BY [facility] EVERY DAY for 90 Active Ezetimibe 10 MG TAKE 1 TABLET BY LISA DAILY for 90 Active Folic Acid 1 MG TAKE 1 TABLET BY LISA EVERY DAY for 90 Active Fenofibrate 160 MG TAKE 1 TABLET BY LISA TH EVERY DAY for 90 Active Gabapentin 600 MG TAKE 1 TABLET BY LISA EVERY DAY Active Cyclobenzaprine HCl 10 MG 1 tablet as ne eded Orally 3 times a day Active Losartan Potassium 25 MG TAKE 1 TABLET B Y MOUTH DAILY for 90 Active Hyoscyamine Sulfate 0.125 MG 1 tablet un emy the tongue and allow to dissolve as needed Sublingual Three times a day Active Omeprazole 20 MG TAKE 1 CAPSULE BY [facility] EVERY DAY Active Folic Acid 1 MG TAKE 1 TABLET BY LISA TH EVERY DAY Active Jardiance 10 MG 1 tablet Orally Once a day for 30 day(s) Active Losartan Potassium 25 MG 1 tablet Orally Once a day for 90 Days Active Clobetasol Propionate 0.05 % 1 applicati on to affected area Externally Twice a day Active Famotidine 40 MG TAKE 1 TABLET BY LISA DAILY AT BEDTIME Active Methotrexate 2.5 MG TAKE 6 TABLETS BY [facility] 1 TIME A WEEK Active Klor-Con M10 10 MEQ 1 tablet Orally QD Active Atenolol 50 MG TAKE 1 TABLET BY LISA TH EVERY DAY Active Sertraline HCl 50 MG TAKE 1 TABLET BY [facility] EVERY DAY Active Gabapentin 800 MG 1 tablet Orally 3 ti mes a day for 30 day(s) Active Ezetimibe 10 MG 1 tablet Orally Once a day for 90 Days Active Magnesium 250 MG 1 tablet with a meal Orally Once a day for 30 day(s) Active oxyCODONE HCl 10 MG 1 tablet as needed Orally daily at bedtime partial fill upon request for 30 days Active Jardiance 10 MG TAKE 1 TABLET BY LISA TH EVERY DAY for 90 Active Lisinopril 40 MG TAKE 1 TABLET BY LISA TH EVERY DAY for 90 Active Atorvastatin Calcium 80 MG 1 tablet Oral ly Once a day for 90 Days Active Fenofibrate 160 MG TAKE 1 TABLET BY LISA TH EVERY DAY Active SOCIAL HISTORY Tobacco Use: Social History Observation Description Date Details (start date - stop date) Former Smoker NA - NA Sex Assigned At : Social History Observation Description Sex Assigned At Unknown Tobacco Use/Smoking Question Answer Notes Are you a former smoker Section Notes: age [age], 1PPD VITAL SIGNS Blood pressure systolic 124 mm Hg 05/22/19 25 Blood pressure diastolic 68 mm Hg 025 Heart Rate 74 /min 05/21/2024 Height 66 in 05/21/2024 Weight 194.0 lbs 05/21/2024 BMI 31.31 kg/m2 05/21/2024 Encounters Encounter Location Date Provider Diagnosis [address] [address] 05/21/2024 Ryan Loving Mixed hyperlipidemia E78.2 ; Lumbar radiculopathy M54.16 ; Essential hypertension I10 ; Ulcerative colitis with complication, unspecified location K51.919 ; Type 2 diabetes mellitus without complication, without long-term current use of insulin E11.9 ; Leg cramps, sleep related G47.62 ; Chronic fatigue R53.82 ; Spinal stenosis of lumbosacral region M48.07 ; Major depressive disorder with single episode, in remission F32.5 ; Irritable bowel syndrome, unspecified type K58.9 ; Gastroesophageal reflux disease without esophagitis K21.9 ; Psoriasis L40.9 ; Primary osteoarthritis of left knee M17.12 and Annual physical exam Z00.00 ASSESSMENTS Encounter Date Diagnosis Assessment Notes Treatment Notes Treatment Clinical Notes Section Notes 05/21/2024 Mixed hyperlipidemia (ICD-10 - E78.2) 05/21/2024 Lumbar radiculopathy (ICD-10 - M54.16) 05/21/2024 Essential hypertension (ICD-10 - I10) 05/21/2024 Ulcerative colitis with complication, unspecified location (ICD-10 - K51.919) 05/21/2024 Type 2 diabetes mellitus without complication, without long-term current use of insulin (ICD-10 - E11.9) 05/21/2024 Leg cramps, sleep related (ICD-10 - G47.62) 05/21/2024 Chronic fatigue (ICD-10 - R53.82) 05/21/2024 Spinal stenosis of lumbosacral region (ICD-10 - M48.07) 05/21/2024 Major depressive disorder with single episode, in remission (ICD-10 - F32.5) 05/21/2024 Irritable bowel syndrome, unspecified type (ICD-10 - K58.9) 05/21/2024 Gastroesophageal reflux disease without esophagitis (ICD-10 - K21.9) 05/21/2024 Psoriasis (ICD-10 - L40.9) 05/21/2024 Primary osteoarthritis of left knee (ICD-10 - M17.12) 05/21/2024 Annual physical exam (ICD-10 - Z00.00) 05/21/2024 Other This chart has been transcribed by a computerized dictation system. There are likely to be multiple dust puller inaccuracies despite chart review. PLAN OF TREATMENT Medication Medication Name Sig Start Date Stop Date Notes Rinvoq 15 MG 1 tablet Orally Once a day Diclofenac Sodium 75 MG 1 tablet as need ed Orally Twice a day Gabapentin 600 MG TAKE 1 TABLET BY LISA TH EVERY DAY Cyclobenzaprine HCl 10 MG 1 tablet as ne eded Orally 3 times a day Hyoscyamine Sulfate 0.125 MG 1 tablet un emy the tongue and allow to dissolve as needed Sublingual Three times a day Omeprazole 20 MG TAKE 1 CAPSULE BY MO [facility] EVERY DAY Folic Acid 1 MG TAKE 1 TABLET BY LISA TH EVERY DAY Jardiance 10 MG 1 tablet Orally Once a day for 30 day(s) Losartan Potassium 25 MG 1 tablet Orally Once a day for 90 Days Clobetasol Propionate 0.05 % 1 applicati on to affected area Externally Twice a day Famotidine 40 MG TAKE 1 TABLET BY LISA TH DAILY AT BEDTIME Methotrexate 2.5 MG TAKE 6 TABLETS BY [facility] 1 TIME A WEEK Klor-Con M10 10 MEQ 1 tablet Orally QD Atenolol 50 MG TAKE 1 TABLET BY LISA TH EVERY DAY Sertraline HCl 50 MG TAKE 1 TABLET BY MO [facility] EVERY DAY Gabapentin 800 MG 1 tablet Orally 3 ti mes a day for 30 day(s) Ezetimibe 10 MG 1 tablet Orally Once a day for 90 Days Magnesium 250 MG 1 tablet with a meal Orally Once a day for 30 day(s) oxyCODONE HCl 10 MG 1 tablet as needed O rally daily at bedtime partial fill upon request for 30 days Atorvastatin Calcium 80 MG 1 tablet Oral ly Once a day for 90 Days Fenofibrate 160 MG TAKE 1 TABLET BY LISA TH EVERY DAY Treatment Notes Assessment Notes Other This chart has been transcribed by a computerized dictation system. There are likely to be multiple dust puller inaccuracies despite chart review. Next Appt Details Follow Up: 2 Months, Reason: Follow-up Provider Name:Ryan Dowling Stuart morillo, 03/16/2025 01:45:00 PM, [address] [place] [address], [phone], Progress Notes * Examination Category Sub-Category Detail Notes Category Not es General Examination GENERAL APPEARANCE: in no ac red cliff distress, well developed, well nourished HEAD: normocephalic, atrau matic EYES: pupils equal, round, reactive to light and accommodation THROAT: clear, no erythema, uvula midline, no exudate NECK/THYROID: neck supple, no thyr omegaly, trachea midline, no carotid bruit HEART: no murmurs, regular rate and rhythm, S1, S2 normal LUNGS: clear to auscultatio n bilaterally ABDOMEN: soft, nontender, non distended, no organomegaly , bowel sounds present NEUROLOGIC: alert and oriented x 3, nonfocal SKIN: no suspicious lesion s, warm and dry EXTREMITIES: no clubbing, cyanosi s, or edema PERIPHERAL PULSES: normal, 2+ throughou t MUSCULOSKELETAL: normal, full range o f motion LYMPH NODES: no cervical, axillar y, supraclavicular or inguinal adenopathy PSYCH: cognitive function i ntact, mood/affect full range ORAL CAVITY: mucosa moist, no les ions, palate normal, tongue in midline, well papillated History and Physical Notes * HPI (History of Present Illness) Category Sub-Category Detail Notes Category Not es Symptom(s) 69-year-old fem jovany patient with history of ulcerative colitis, hypertension, GERD, gout, DJD, GERD, psoriasis, hyperlipidemia, anxiety, depression, and left-sided sciatica is here for follow-up. Since last visit patient has been evaluated by pain management and has received lidocaine injection to her lumbar spine with some improvement in her symptoms. She is awaiting issues abdominal wall for further interventional pain management procedures. She tells me that she is not taking gabapentin twice a day. I advised her to increase it to 3 times a day. She takes oxycodone 10 mg only for severe pain and has enough pain medications left at home. Her blood pressure is well controlled. She denies chest pain, palpitation, shortness of breath. I ordered appropriate labs for her to be done prior to her next visit.Patient is also due for her annual Medicare wellness checkup. She is not a fall risk and does not display signs symptoms suggestive of impaired memory with dementia. Depression Screening PHQ-9 Little interest or pleasure in doing things: Several days Feeling down, depressed, or hopeless: No t at all Trouble falling or staying asleep, or sl eeping too much: Not at all Feeling tired or having little energy: S everal days Poor appetite or overeating: Not at all Feeling bad about yourself o r that you are a failure, or have let yourself or your family down: Not at all Trouble concentrating on thi ngs, such as reading the newspaper or watching television: Not at all Moving or speaking so slowly that other people could have noticed; or the opposite, being so fidgety or restless that you have been moving around a lot more than usual: Not at all Thoughts that you would be b clare off or of hurting yourself in some way: Not at all Total Score: 2 Interpretation: Minimal Depression
--- OUTSIDE RECORDS SUMMARY | 2024-06-09 04:00 | XMS_ITS ---
Author Organization [facility] Address [address] [place] [address] Care Team Providers Care Underlay Stitcher Name Role Phone DINAH PRAJAPATI MD Primary Care Provider BRETT Naylor [phone] Encounters Encounter Location Date Provider Diagnosis [facility] [address] [place] [address] 06/09/2024 BRETT SIM Plan Of Treatment No Information Progress Notes * OLEG ULLOALATRELLB: 953 (69 yo F)Acc No.[id number]:06/09/2024 Progress Notes Patient: PERI WILBURN Provider: Connie Sim MD :1955 A ge:69 Y S ex:Female Date:06/09/2024 Address:[facility] [address], [address] [place], [place] [id number] Pcp:DINAH PRAJAPATI MD * Electronic signature of NICK TAPIA MD on 01/13/2025 at 09:06 AM EST Sign off status: Pending * Provider: Connie Sim MD Date: 0 06/09/2024 Generated for Printi ng/Faanibalg/eTransmitting on: 03/15/2024 09:06 AM EST
--- OUTSIDE RECORDS SUMMARY | 2024-07-04 08:15 | XMS_ITS ---
Author Organization [facility] Address [address] [place] [address] Care Team Providers Care [place] Seamer Name Role Phone DINAH PRAJAPATI MD Primary Care Provider BRETT Naylor [phone] REASON FOR VISIT left message Encounters Encounter Location Date Provider Diagnosis [facility] [address] [place] [address] 07/04/2024 BRETT SIM Plan Of Treatment No Information Progress Notes * ALF ULLOAB: 953 (69 yo F)Acc No.[id number]:07/04/2024 Progress Notes Patient: PERI WILBURN Provider: Connie Sim MD :1955 A ge:69 Y S ex:Female Date:07/04/2024 Address:[facility] [address], [address] [place], [place] [id number] Pcp:DINAH PRAJAPATI MD Subjective: * Chief Complaints: * L eft message * Electronic signature of NICK TAPIA MD on 01/13/2025 at 09:07 AM EST Sign off status: Pending * Provider: Connie Sim MD Date: 0 07/04/2024 Generated for Elvirai matthew/Kavitha/eTransmitting on: 03/15/2024 09:07 AM EST
--- OUTSIDE RECORDS SUMMARY | 2024-07-16 09:15 | XMS_ITS ---
Author Organization Inder Shearer Address [address] [place] [phone] Care Team Providers Care Cataract Lens Generator Name Role Phone Ryan Loving Primary Care Provider ALLERGIES Allergen (clinical drug ingredient) Drug/Non Drug Allergy documented on EMR Reaction Allergy Type Onset Date Status Shrimp Flavor vomiting Drug Allergy Act dell REASON FOR VISIT (IN OFFICE), Follow Up MEDICATIONS Medication SIG (Take, Route, Frequency, Duration) Notes Start Date End Date Status oxyCODONE HCl 5 MG 1 tablet as needed Orally Twice a day partial fill upon request for 30 days 07/16/2024 Active Gabapentin 800 MG 1 tablet Orally 3 ti mes a day for 30 day(s) Active Omeprazole 20 MG TAKE 1 CAPSULE BY [facility] EVERY DAY Active Folic Acid 1 MG TAKE 1 TABLET BY LISA TH EVERY DAY Active Hyoscyamine Sulfate 0.125 MG 1 tablet un emy the tongue and allow to dissolve as needed Sublingual Three times a day Active Gabapentin 800 MG 1 tablet Orally Once a day for 30 day(s) Active Famotidine 40 MG TAKE 1 TABLET BY LISA TH DAILY AT BEDTIME Active Methotrexate 2.5 MG TAKE 6 TABLETS BY [facility] 1 TIME A WEEK Active Sertraline HCl 50 MG TAKE 1 TABLET BY [facility] EVERY DAY Active Clobetasol Propionate 0.05 % 1 applicati on to affected area Externally Twice a day Active Magnesium 250 MG 1 tablet with a meal Orally Once a day for 30 day(s) Active Lisinopril 10 MG TAKE 1 TABLET BY LISA TH EVERY DAY Active Repatha 140 MG/ML 1 ml Subcutaneous ev quinn 2 weeks for 90 Days 07/16/2024 Active Losartan Potassium 25 MG TAKE 1 TABLET B Y MOUTH DAILY for 90 Active Ezetimibe 10 MG TAKE 1 TABLET BY LISA TH DAILY for 90 Active Atorvastatin Calcium 80 MG TAKE 1 TABLET BY MOUTH DAILY for 90 Active Sertraline HCl 50 MG TAKE 1 TABLET BY [facility] EVERY DAY for 90 Active Atenolol 50 MG TAKE 1 TABLET BY LISA TH EVERY DAY for 90 Active Fenofibrate 160 MG TAKE 1 TABLET BY LISA TH EVERY DAY Active Ezetimibe 10 MG 1 tablet Orally Once a day for 90 Days Active Losartan Potassium 25 MG 1 tablet Orally Once a day for 90 Days Active Atorvastatin Calcium 80 MG 1 tablet Oral ly Once a day for 90 Days Active Folic Acid 1 MG TAKE 1 TABLET BY LISA TH EVERY DAY for 90 Active Fenofibrate 160 MG TAKE 1 TABLET BY LISA TH EVERY DAY for 90 Active Diclofenac Sodium 75 MG 1 tablet as need ed Orally Twice a day Active Cyclobenzaprine HCl 10 MG 1 tablet as ne eded Orally 3 times a day Active Rinvoq 15 MG 1 tablet Orally Once a day Active Gabapentin 600 MG TAKE 1 TABLET BY LISA TH EVERY DAY Active Klor-Con M10 10 MEQ 1 tablet Orally QD Active Atenolol 50 MG TAKE 1 TABLET BY LISA TH EVERY DAY Active Jardiance 10 MG 1 tablet Orally Once a day for 30 day(s) Active SOCIAL HISTORY Tobacco Use: Social History Observation Description Date Details (start date - stop date) Former Smoker NA - NA Sex Assigned At : Social History Observation Description Sex Assigned At Unknown Tobacco Use/Smoking Question Answer Notes Are you a former smoker Section Notes: age [age], 1PPD VITAL SIGNS Blood pressure systolic 120 mm Hg 07/17/19 25 Blood pressure diastolic 70 mm Hg 025 Heart Rate 80 /min 07/16/2024 Height 66 in 07/16/2024 Weight 199 lbs 07/16/2024 BMI 32.12 kg/m2 07/16/2024 Encounters Encounter Location Date Provider Diagnosis [facility] Rendon [address] [place] [phone] 07/16/2024 Ryan Loving Mixed hyperlipidemia E78.2 ; Lumbar [...] disease without esophagitis K21.9 ; Psoriasis L40.9 and Primary osteoarthritis of left knee M17.12 ASSESSMENTS Encounter Date Diagnosis Assessment Notes Treatment Notes Treatment Clinical Notes Section Notes 07/16/2024 Mixed hyperlipidemia (ICD-10 - E78.2) 07/16/2024 Lumbar radiculopathy (ICD-10 - M54.16) In accordance with Chapter 52 - Acts of 2016, '' An Act Relative to Substance Use Treatment, Education and Prevention, the risks associated with opioid and opioid-like substances has been discussed with the patient. The patient clearly understands that the medication is to control chronic pain and to improve quality of life and functionality. Patient uses the medication judiciously as prescribed and displays no aberrant behavior. The patient has been made aware of other non-opioid treatment options including medications and interventional procedures. The patient was given the option to fill the prescription in lesser amount. [place] PAT verified. 07/16/2024 Essential hypertension (ICD-10 - I10) 07/16/2024 Ulcerative colitis with complication, unspecified location (ICD-10 - K51.919) 07/16/2024 Type 2 diabetes mellitus without complication, without long-term current use of insulin (ICD-10 - E11.9) 07/16/2024 Leg cramps, sleep related (ICD-10 - G47.62) 07/16/2024 Chronic fatigue (ICD-10 - R53.82) 07/16/2024 Spinal stenosis of lumbosacral region (ICD-10 - M48.07) 07/16/2024 Major depressive disorder with single episode, in remission (ICD-10 - F32.5) 07/16/2024 Irritable bowel syndrome, unspecified type (ICD-10 - K58.9) 07/16/2024 Gastroesophageal reflux disease without esophagitis (ICD-10 - K21.9) 07/16/2024 Psoriasis (ICD-10 - L40.9) 07/16/2024 Primary osteoarthritis of left knee (ICD-10 - M17.12) 07/16/2024 Other This chart has been transcribed by a computerized dictation system. There are likely to be multiple receptionist clerk inaccuracies despite chart review. PLAN OF TREATMENT Medication Medication Name Sig Start Date Stop Date Notes oxyCODONE HCl 5 MG 1 tablet as needed O rally Twice a day partial fill upon request for 30 days 07/16/2024 Gabapentin 800 MG 1 tablet Orally 3 ti mes a day for 30 day(s) Omeprazole 20 MG TAKE 1 CAPSULE BY [facility] EVERY DAY Folic Acid 1 MG TAKE 1 TABLET BY LISA EVERY DAY Hyoscyamine Sulfate 0.125 MG 1 tablet un emy the tongue and allow to dissolve as needed Sublingual Three times a day Famotidine 40 MG TAKE 1 TABLET BY LISA DAILY AT BEDTIME Methotrexate 2.5 MG TAKE 6 TABLETS BY [facility] 1 TIME A WEEK Sertraline HCl 50 MG TAKE 1 TABLET BY [facility] EVERY DAY Clobetasol Propionate 0.05 % 1 applicati on to affected area Externally Twice a day Magnesium 250 MG 1 tablet with a meal Orally Once a day for 30 day(s) Lisinopril 10 MG TAKE 1 TABLET BY [facility] EVERY DAY Repatha 140 MG/ML 1 ml Subcutaneous ev quinn 2 weeks for 90 Days 07/16/2024 Fenofibrate 160 MG TAKE 1 TABLET BY LISA EVERY DAY Ezetimibe 10 MG 1 tablet Orally Once a day for 90 Days Losartan Potassium 25 MG 1 tablet Orally Once a day for 90 Days Atorvastatin Calcium 80 MG 1 tablet Oral ly Once a day for 90 Days Diclofenac Sodium 75 MG 1 tablet as need ed Orally Twice a day Cyclobenzaprine HCl 10 MG 1 tablet as ne eded Orally 3 times a day Rinvoq 15 MG 1 tablet Orally Once a day Gabapentin 600 MG TAKE 1 TABLET BY LISA EVERY DAY Klor-Con M10 10 MEQ 1 tablet Orally QD Atenolol 50 MG TAKE 1 TABLET BY LISA EVERY DAY Jardiance 10 MG 1 tablet Orally Once a day for 30 day(s) Treatment Notes Assessment Notes Lumbar radiculopathy In accordance with Chapter 52 - Acts of 2016, '' An Act Relative to Substance Use Treatment, Education and Prevention, the risks associated with opioid and opioid-like substances has been discussed with the patient. The patient clearly understands that the medication is to control chronic pain and to improve quality of life and functionality. Patient uses the medication judiciously as prescribed and displays no aberrant behavior. The patient has been made aware of other non-opioid treatment options including medications and interventional procedures. The patient was given the option to fill the prescription in lesser amount. [place] PAT verified. Other This chart has been transcribed by a computerized dictation system. There are likely to be multiple receptionist clerk inaccuracies despite chart review. Next Appt Details Follow Up: 4 Weeks, Reason: Follow-up Provider Name:Ryan morillo, 03/16/2025 01:45:00 PM, [address] [place] [address], [phone], Progress Notes * Examination Category Sub-Category Detail [...] last visit patient has been evaluated by interventional pain management and has received lidocaine injections to her lumbar spine which did not relieve her symptoms. She was advised by pain management to see orthopedic surgery. She saw a physician lens assistant at orthopedics office will give her lidocaine injection for osteoarthritis right hip. She tells me that she is awaiting a call from orthopedic surgery to see if she is a candidate for cortisone injection to her right hip. She tells me that she has been breaking the oxycodone 10 mg half and takes half a tablet twice a day. I sent a new prescription for oxycodone 5 million by mouth twice a day when necessary. She also tells me that she takes gabapentin 800 mg at night but cannot take the medication during the day because it makes her drowsy. Patient's blood pressure is well controlled. She denies chest pain, palpitation, shortness of breath. I discussed her lab results with her during the visit which are within acceptable range except LDL which is not yet at target. I advised patient to start Repatha 140 mg subcutaneous every 2 weeks. I reviewed consultation notes from pain management and orthopedic surgery during the visit.
--- OUTSIDE RECORDS SUMMARY | 2024-08-20 08:45 | XMS_ITS ---
Author Organization Inder Shearer Address [address] [place] [phone] Care Team Providers Care Speeder Operator Name Role Phone Ryan Loving Primary Care Provider ALLERGIES Allergen (clinical drug ingredient) Drug/Non Drug Allergy documented on EMR Reaction Allergy Type Onset Date Status Shrimp Flavor vomiting Drug Allergy Act dell REASON FOR VISIT (IN OFFICE), Follow Up MEDICATIONS Medication SIG (Take, Route, Frequency, Duration) Notes Start Date End Date Status Lisinopril 40 MG TAKE 1 TABLET BY LISA TH EVERY DAY for 90 Active Famotidine 40 MG TAKE 1 TABLET BY LISA TH DAILY AT BEDTIME for 90 Active Jardiance 10 MG TAKE 1 TABLET BY LISA TH EVERY DAY for 90 Active Losartan Potassium 25 MG 1 tablet Orally Once a day for 90 Days Active Atenolol 50 MG TAKE 1 TABLET BY LISA TH EVERY DAY Active Lisinopril 10 MG TAKE 1 TABLET BY LISA TH EVERY DAY Active Atenolol 50 MG TAKE 1 TABLET BY LISA TH EVERY DAY for 90 Active Gabapentin 800 MG 1 tablet Orally Once a day for 30 day(s) Active Klor-Con M10 10 MEQ 1 tablet Orally QD Active Fenofibrate 160 MG TAKE 1 TABLET BY LISA TH EVERY DAY Active Repatha 140 MG/ML 1 ml Subcutaneous ev quinn 2 weeks for 90 Days Active Gabapentin 600 MG TAKE 1 TABLET BY LISA TH EVERY DAY Active Cyclobenzaprine HCl 10 MG 1 tablet as ne eded Orally 3 times a day Active Gabapentin 800 MG 1 tablet Orally 3 ti mes a day for 30 day(s) Active Rinvoq 15 MG 1 tablet Orally Once a day Active Atorvastatin Calcium 80 MG 1 tablet Oral ly Once a day for 90 Days Active Jardiance 10 MG 1 tablet Orally Once a day for 30 day(s) Active Methotrexate 2.5 MG TAKE 6 TABLETS BY [facility] 1 TIME A WEEK Active oxyCODONE HCl 5 MG 1 tablet as needed Orally Twice a day partial fill upon request for 30 days Active Omeprazole 20 MG TAKE 1 CAPSULE BY [facility] EVERY DAY Active Folic Acid 1 MG TAKE 1 TABLET BY LISA EVERY DAY Active Sertraline HCl 50 MG TAKE 1 TABLET BY [facility] EVERY DAY Active Clobetasol Propionate 0.05 % 1 applicati on to affected area Externally Twice a day Active Famotidine 40 MG TAKE 1 TABLET BY LISA TH DAILY AT BEDTIME Active SOCIAL HISTORY Tobacco Use: Social History Observation Description Date Details (start date - stop date) Former Smoker NA - NA Sex Assigned At : Social History Observation Description Sex Assigned At Unknown Tobacco Use/Smoking Question Answer Notes Are you a former smoker Section Notes: age [age], 1PPD VITAL SIGNS Blood pressure systolic 120 mm Hg 08/21/19 25 Blood pressure diastolic 70 mm Hg 025 Heart Rate 80 /min 08/20/2024 Height 66 in 08/20/2024 Weight 199 lbs 08/20/2024 BMI 32.12 kg/m2 08/20/2024 Encounters Encounter Location Date Provider Diagnosis Inder Shearer [address] [phone] 08/20/2024 Ryan Loving Mixed hyperlipidemia E78.2 ; Lumbar [...] Treatment Notes Treatment Clinical Notes Section Notes 08/20/2024 Mixed hyperlipidemia (ICD-10 - E78.2) 08/20/2024 Lumbar radiculopathy (ICD-10 - M54.16) In accordance [...] prescription in lesser amount. [place] PAT verified. 08/20/2024 Essential hypertension (ICD-10 - I10) 08/20/2024 Ulcerative colitis with complication, unspecified location (ICD-10 - K51.919) 08/20/2024 Type 2 diabetes mellitus without complication, without long-term current use of insulin (ICD-10 - E11.9) 08/20/2024 Leg cramps, sleep related (ICD-10 - G47.62) 08/20/2024 Chronic fatigue (ICD-10 - R53.82) 08/20/2024 Spinal stenosis of lumbosacral region (ICD-10 - M48.07) 08/20/2024 Major depressive disorder with single episode, in remission (ICD-10 - F32.5) 08/20/2024 Irritable bowel syndrome, unspecified type (ICD-10 - K58.9) 08/20/2024 Gastroesophageal reflux disease without esophagitis (ICD-10 - K21.9) 08/20/2024 Psoriasis (ICD-10 - L40.9) 08/20/2024 Primary osteoarthritis of left knee (ICD-10 - M17.12) 08/20/2024 Other This chart has been transcribed by a computerized dictation system. There are likely to be multiple forensic specialist inaccuracies despite chart review. PLAN OF TREATMENT Medication Medication Name Sig Start Date Stop Date Notes Diclofenac Sodium 75 MG 1 tablet as need ed Orally Twice a day Hyoscyamine Sulfate 0.125 MG 1 tablet un emy the tongue and allow to dissolve as needed Sublingual Three times a day Losartan Potassium 25 MG 1 tablet Orally Once a day for 90 Days Atenolol 50 MG TAKE 1 TABLET BY LISA TH EVERY DAY Lisinopril 10 MG TAKE 1 TABLET BY LISA TH EVERY DAY Klor-Con M10 10 MEQ 1 tablet Orally QD Magnesium 250 MG 1 tablet with a meal Orally Once a day for 30 day(s) Fenofibrate 160 MG TAKE 1 TABLET BY LISA EVERY DAY Repatha 140 MG/ML 1 ml Subcutaneous ev quinn 2 weeks for 90 Days Ezetimibe 10 MG 1 tablet Orally Once a day for 90 Days Gabapentin 600 MG TAKE 1 TABLET BY LISA EVERY DAY Cyclobenzaprine HCl 10 MG 1 tablet as ne eded Orally 3 times a day Gabapentin 800 MG 1 tablet Orally 3 ti mes a day for 30 day(s) Rinvoq 15 MG 1 tablet Orally Once a day Atorvastatin Calcium 80 MG 1 tablet Oral ly Once a day for 90 Days Jardiance 10 MG 1 tablet Orally Once a day for 30 day(s) Methotrexate 2.5 MG TAKE 6 TABLETS BY [facility] 1 TIME A WEEK oxyCODONE HCl 5 MG 1 tablet as needed O rally Twice a day partial fill upon request for 30 days Omeprazole 20 MG TAKE 1 CAPSULE BY [facility] EVERY DAY Folic Acid 1 MG TAKE 1 TABLET BY [facility] EVERY DAY Sertraline HCl 50 MG TAKE 1 TABLET BY [facility] EVERY DAY Clobetasol Propionate 0.05 % 1 applicati on to affected area Externally Twice a day Famotidine 40 MG TAKE 1 TABLET BY LISA DAILY AT BEDTIME Treatment Notes Assessment Notes Lumbar radiculopathy In [...] to fill the prescription in lesser amount. [facility] verified. Other This chart has been transcribed by a computerized dictation system. There are likely to be multiple forensic specialist inaccuracies despite chart review. Next Appt Details Follow Up: 4 Weeks, Reason: Follow up with [facility] Provider Name:Ryan morillo, 03/16/2025 01:45:00 PM, [address] [place] [address], [phone], Progress Notes * Examination Category Sub-Category Detail [...] depression, and left-sided sciatica is here for a follow up. She denies chest pain, palpitations and shortness of breath. She is compliant with all of her medications without side effects. Her blood pressure is well controlled. She tells me that she started the Repatha and has not had any side effects. Her chronic pain is reasonably controlled with her current pain medications as needed. She tells me that she sparingly takes the Oxycodone and does not need a refill at this time. She has an upcoming appointment with Ortho surgeon in August for hip replacement consultation. Her anxiety and depression are well controlled on current medications.
--- OUTSIDE RECORDS SUMMARY | 2024-09-15 09:00 | XMS_ITS ---
Author Organization [facility] Address [address] [place] [address] Care Team Providers Care Cupboard Builder Name Role Phone Ryan Loving Primary Care Provider ALLERGIES Allergen (clinical drug ingredient) Drug/Non Drug Allergy documented on EMR Reaction Allergy Type Onset Date Status Shrimp Flavor vomiting Drug Allergy Act dell RESULTS Component Value Reference Range Notes LP+Non-HDL Cholesterol-[id number] 5 Reviewed date:12/11/2024 09:21:58 AM Interpretation: Performing Lab:[facility], [address], [place], Phone - [phone], Director - Janae Notes/Report: Cholesterol, Total 79 100-199 mg/dL Triglycerides 292 0-149 mg/dL HDL Cholesterol 5 >39 mg/dL Verified b y repeat analysis VLDL Cholesterol King 44 5-40 mg/dL LDL Chol Calc ([facility]) 30 0-99 mg/dL LDL Calc Comment: Non-HDL Cholesterol 74 0-129 mg/dL Hepatic Function Panel [id number] Reviewed date:12/11/2024 09:21:58 AM Interpretation: Performing Lab:[facility], [address], [place], Phone - [phone], Director - Janae Notes/Report: Albumin 4.3 3.8-4.8 g/dL Bilirubin, Total 0.7 0.0-1.2 mg/dL Bilirubin, Direct 0.28 0.00-0.40 mg/dL Alkaline Phosphatase 59 49-135 IU/L AST (SGOT) 64 0-40 IU/L ALT (SGPT) 39 0-32 IU/L REASON FOR VISIT (IN OFFICE), Follow Up MEDICATIONS Medication SIG (Take, Route, Frequency, Duration) Notes Start Date End Date Status Losartan Potassium 25 MG 1 tablet Orally Once a day for 90 Days Active Repatha 140 MG/ML 1 ml Subcutaneous ev quinn 2 weeks for 90 Days Active Fenofibrate 160 MG TAKE 1 TABLET BY LISA TH EVERY DAY Active Atorvastatin Calcium 80 MG 1 tablet Oral ly Once a day for 90 Days Active Lisinopril 10 MG TAKE 1 TABLET BY LISA TH EVERY DAY Active Atenolol 50 MG TAKE 1 TABLET BY LISA TH EVERY DAY Active Klor-Con M10 10 MEQ 1 tablet Orally QD Active Gabapentin 800 MG 1 tablet Orally 3 ti mes a day for 30 day(s) Active oxyCODONE HCl 5 MG 1 tablet as needed Orally Twice a day partial fill upon request for 30 days Active Rinvoq 15 MG 1 tablet Orally Once a day Active Fenofibrate 160 MG TAKE 1 TABLET BY LISA TH EVERY DAY for 90 Active Cyclobenzaprine HCl 10 MG 1 tablet as ne eded Orally 3 times a day Active Gabapentin 600 MG TAKE 1 TABLET BY LISA TH EVERY DAY Active Jardiance 10 MG 1 tablet Orally Once a day for 30 day(s) Active Omeprazole 20 MG TAKE 1 CAPSULE BY MO UT EVERY DAY Active Lisinopril 40 MG TAKE 1 TABLET BY LISA TH EVERY DAY Active Famotidine 40 MG TAKE 1 TABLET BY LISA TH DAILY AT BEDTIME Active Sertraline HCl 50 MG TAKE 1 TABLET BY MO UTH EVERY DAY Active Clobetasol Propionate 0.05 % 1 applicati on to affected area Externally Twice a day Active SOCIAL HISTORY Tobacco Use: Social History Observation Description Date Details (start date - stop date) Former Smoker NA - NA Sex Assigned At : Social History Observation Description Sex Assigned At Unknown Tobacco Use/Smoking Question Answer Notes Are you a former smoker Section Notes: age [age], 1PPD VITAL SIGNS Blood pressure systolic 138 mm Hg 09/16/19 25 Blood pressure diastolic 74 mm Hg 025 Heart Rate 70 /min 09/15/2024 Height 66 in 09/15/2024 Weight 204.0 lbs 09/15/2024 BMI 32.92 kg/m2 09/15/2024 Encounters Encounter Location Date Provider Diagnosis [facility] [address] [address] 09/15/2024 Ryan Loving Mixed hyperlipidemia E78.2 ; Lumbar [...] Treatment Notes Treatment Clinical Notes Section Notes 09/15/2024 Mixed hyperlipidemia (ICD-10 - E78.2) 09/15/2024 Lumbar radiculopathy (ICD-10 - M54.16) In accordance [...] prescription in lesser amount. [place] PAT verified. 09/15/2024 Essential hypertension (ICD-10 - I10) 09/15/2024 Ulcerative colitis with complication, unspecified location (ICD-10 - K51.919) 09/15/2024 Type 2 diabetes mellitus without complication, without long-term current use of insulin (ICD-10 - E11.9) 09/15/2024 Leg cramps, sleep related (ICD-10 - G47.62) 09/15/2024 Chronic fatigue (ICD-10 - R53.82) 09/15/2024 Spinal stenosis of lumbosacral region (ICD-10 - M48.07) 09/15/2024 Major depressive disorder with single episode, in remission (ICD-10 - F32.5) 09/15/2024 Irritable bowel syndrome, unspecified type (ICD-10 - K58.9) 09/15/2024 Gastroesophageal reflux disease without esophagitis (ICD-10 - K21.9) 09/15/2024 Psoriasis (ICD-10 - L40.9) 09/15/2024 Primary osteoarthritis of left knee (ICD-10 - M17.12) 09/15/2024 Other This chart has been transcribed by a computerized dictation system. There are likely to be multiple pick and shovel worker inaccuracies despite chart review. PLAN OF TREATMENT Medication Medication Name Sig Start Date Stop Date Notes Losartan Potassium 25 MG 1 tablet Orally Once a day for 90 Days Repatha 140 MG/ML 1 ml Subcutaneous ev quinn 2 weeks for 90 Days Fenofibrate 160 MG TAKE 1 TABLET BY LISA TH EVERY DAY Atorvastatin Calcium 80 MG 1 tablet Oral ly Once a day for 90 Days Lisinopril 10 MG TAKE 1 TABLET BY LISA TH EVERY DAY Atenolol 50 MG TAKE 1 TABLET BY LISA TH EVERY DAY Klor-Con M10 10 MEQ 1 tablet Orally QD Gabapentin 800 MG 1 tablet Orally 3 ti mes a day for 30 day(s) oxyCODONE HCl 5 MG 1 tablet as needed O rally Twice a day partial fill upon request for 30 days Rinvoq 15 MG 1 tablet Orally Once a day Cyclobenzaprine HCl 10 MG 1 tablet as ne eded Orally 3 times a day Gabapentin 600 MG TAKE 1 TABLET BY LISA TH EVERY DAY Jardiance 10 MG 1 tablet Orally Once a day for 30 day(s) Omeprazole 20 MG TAKE 1 CAPSULE BY MO UT EVERY DAY Lisinopril 40 MG TAKE 1 TABLET BY LISA TH EVERY DAY Folic Acid 1 MG TAKE 1 TABLET BY LISA TH EVERY DAY Methotrexate 2.5 MG TAKE 6 TABLETS BY MO UT 1 TIME A WEEK Famotidine 40 MG TAKE 1 TABLET BY LISA TH DAILY AT BEDTIME Sertraline HCl 50 MG TAKE 1 TABLET BY MO UT EVERY DAY Clobetasol Propionate 0.05 % 1 applicati on to affected area Externally Twice a day Treatment Notes Assessment Notes Lumbar radiculopathy In [...] system. There are likely to be multiple pick and shovel worker inaccuracies despite chart review. Next Appt Details Follow Up: 3 Months, Reason: Follow up with [facility] Provider Name:Ryan morillo, 03/16/2025 01:45:00 PM, [address] [place] [address], [phone], Progress Notes * Examination Category Sub-Category Detail [...] GERD, gout, DJD, GERD, psoriasis, hyperlipidemia, anxiety, depression and left-sided sciatica is here for follow up. She is compliant with all of her medications without side effects. I reconciled her medication list with her today. Her blood pressure is well controlled on current medications. She denies chest pain, palpitations and shortness of breath. Her anxiety and depression symptoms are well controlled. Her chronic pain is well controlled on current medications. She tells me that she sparingly takes the Oxycodone and does not need a refill at this time. She was seen by the Orthopedic and was told that she has bursitis in bilateral hips. They started her on Meloxicam 15mg once a day that has improved her pain some. She is now having most of her pain in the left lower abdomen that goes to the back for the last 3 weeks. I discussed that it is unlikely related to her colitis as she has no other symptoms and could be related to her left hip. I advised her to continue with the Meloxicam and Tylenol as needed. She tells me that she starts PT in September. I ordered appropriate labs for prior to her next visit.
--- OUTSIDE RECORDS SUMMARY | 2024-10-02 07:45 | XMS_ITS ---
[facility] Address [address] [place] [address] Care Team Providers Care Dietary Supervisor Name Role Phone Ryan Loving Primary Care Provider [phone] ALLERGIES Allergen (clinical drug ingredient) Drug/Non Drug Allergy documented on EMR Reaction Allergy Type Onset Date Status Shrimp Flavor vomiting Drug Allergy Act dell REASON FOR VISIT (IN OFFICE), Sick Visit MEDICATIONS Medication SIG (Take, Route, Frequency, Duration) Notes Start Date End Date Status Atenolol 50 MG TAKE 1 TABLET BY LISA TH EVERY DAY for 90 Active Atorvastatin Calcium 80 MG TAKE 1 TABLET BY MOUTH DAILY for 90 Active Lisinopril 40 MG TAKE 1 TABLET BY LISA TH EVERY DAY Active Clobetasol Propionate 0.05 % 1 applicati on to affected area Externally Twice a day Active Fenofibrate 160 MG TAKE 1 TABLET BY LISA TH EVERY DAY for 90 Active oxyCODONE HCl 5 MG 1 tablet as needed Orally Once a day partial fill upon request for 30 days 10/02/2024 Active Losartan Potassium 25 MG 1 tablet Orally Once a day for 90 Days Active Lisinopril 10 MG TAKE 1 TABLET BY LISA TH EVERY DAY Active Fenofibrate 160 MG TAKE 1 TABLET BY LISA TH EVERY DAY Active Repatha 140 MG/ML 1 ml Subcutaneous ev quinn 2 weeks for 90 Days Active Rinvoq 15 MG 1 tablet Orally Once a day Active Gabapentin 800 MG 1 tablet Orally 3 ti mes a day for 30 day(s) Active Klor-Con M10 10 MEQ 1 tablet Orally QD Active Gabapentin 600 MG TAKE 1 TABLET BY LISA TH EVERY DAY Active Cyclobenzaprine HCl 10 MG 1 tablet as ne eded Orally 3 times a day Active Amoxicillin-Pot Clavulanate 875-125 MG 1 tablet Orally every 12 hrs for 10 days 10/02/2024 Active Sertraline HCl 50 MG TAKE 1 TABLET BY MO UT EVERY DAY Active Famotidine 40 MG TAKE 1 TABLET BY LISA TH DAILY AT BEDTIME Active Omeprazole 20 MG TAKE 1 CAPSULE BY MO UTH EVERY DAY Active Jardiance 10 MG 1 tablet Orally Once a day for 30 day(s) Active SOCIAL HISTORY Tobacco Use: Social History Observation Description Date Details (start date - stop date) Former Smoker NA - NA Sex Assigned At : Social History Observation Description Sex Assigned At Unknown Tobacco Use/Smoking Question Answer Notes Are you a former smoker Section Notes: age [age], 1PPD PROBLEMS Problem Type ICD Code Onset Dates Problem Status W/U Status Risk SNOMED Code Notes Problem Acute diverticulitis (K57.92) Active confirmed 200722548 VITAL SIGNS Blood pressure systolic 132 mm Hg 10/03/19 25 Blood pressure diastolic 78 mm Hg 025 Heart Rate 80 /min 10/02/2024 Height 66 in 10/02/2024 Weight 199.0 lbs 10/02/2024 BMI 32.12 kg/m2 10/02/2024 Encounters Encounter Location Date Provider Diagnosis [address] [address] 10/02/2024 Ryan Loving Acute diverticulitis K57.92 ; Left groin pain R10.32 and Left sided sciatica M54.32 ASSESSMENTS Encounter Date Diagnosis Assessment Notes Treatment Notes Treatment Clinical Notes Section Notes 10/02/2024 Acute diverticulitis (ICD-10 - K57.92) 10/02/2024 Left groin pain (ICD-10 - R10.32) 10/02/2024 Left sided sciatica (ICD-10 - M54.32) In accordance with Chapter 52 - Acts [...] to fill the prescription in lesser amount. [facility] verified. 10/02/2024 Other This chart has been transcribed by a computerized dictation system. There are likely to be multiple dental hygiene administrative assistant inaccuracies despite chart review. PLAN OF TREATMENT Medication Medication Name Sig Start Date Stop Date Notes oxyCODONE HCl 5 MG 1 tablet as needed O rally Once a day partial fill upon request for 30 days 10/02/2024 Amoxicillin-Pot Clavulanate 875-125 MG 1 tablet Orally every 12 hrs for 10 days 10/02/2024 Treatment Notes Assessment Notes Left sided sciatica In accordance with C hapter 52 - Acts of 2016, '' An [...] to fill the prescription in lesser amount. [facility] verified. Other This chart has been transcribed by a computerized dictation system. There are likely to be multiple dental hygiene administrative assistant inaccuracies despite chart review. Pending Test Test Name Order Date X ray : Hip, left 10/02/2024 Next Appt Details Follow Up: as scheduled, Suzanne son: Provider Name:Ryan Davidson ilia, 03/16/2025 01:45:00 PM, [address] [place] [address], [phone], Progress Notes * Examination Category Sub-Category Detail Notes Category Not es General Examination GENERAL APPEARANCE: in no ac [place]roqu[place] distress, well developed, well nourished HEAD: normocephalic, atrau matic EYES: pupils equal, round, reactive to light and accommodation THROAT: clear, no erythema, uvula midline, no exudate NECK/THYROID: neck supple, no thyr omegaly, trachea midline, no carotid bruit HEART: no murmurs, regular rate and rhythm, S1, S2 normal LUNGS: clear to auscultatio n bilaterally ABDOMEN: soft, tenderness lef t lower quadrant without rebound tenderness or rigidity, nondistended, no organomegaly , bowel sounds present NEUROLOGIC: Lower extremity DTRs 2+ bilateral, SLR negative bilateral, gait normal SKIN: no suspicious lesion s, warm and dry EXTREMITIES: no clubbing, cyanosi s, or edema PERIPHERAL PULSES: normal, 2+ throughou t MUSCULOSKELETAL: Palpation of the lum bosacral spine no point tenderness, paravertebral spasm present LYMPH NODES: no cervical, axillar y, supraclavicular [...] anxiety, depression and left-sided sciatica is here thing of left lower quadrant abdominal pain for the past 1 week. She also complains of left groin pain for almost the same duration. Patient denies changes in her bowel movements. She denies fever, chills, or other constitutional symptoms. She denies nausea or vomiting. Examination is significant for tenderness lower quadrant without rebound tenderness. I talked to the patient apart acute diverticulitis and started her on Augmentin. I talked about dietary modifications. In view of pain left groin and patient's history of osteoarthritis I ordered x-ray left hip to rule out osteoarthritis of left hip. She tells me that she has been trying not to take her oxycodone and has run out. She was taking 1 tablet twice a day with her sciatica was acting up. She is requesting 30 tablets to get her through until her next appointment.
--- OUTSIDE RECORDS SUMMARY | 2024-10-05 03:42 | XMS_ITS ---
Author Organization [facility] Address [address] [place] [address] Care Team Providers Care Technical Services Manager Name Role Phone Ryan Loving Primary Care Provider REASON FOR VISIT Message MEDICATIONS Medication SIG (Take, Route, Fr equency, Duration) Notes Start Date End Date Status Cipro 500 MG 1 tablet Orally Twic e a day for 10 days 10/05/2024 Active metroNIDAZOLE 500 MG 1 tablet Orally Thr ee times a day for 10 day(s) 10/05/2024 Active Encounters Encounter Location Date Provider Diagnosis [facility] [address] [place] [address] 10/06/19 Ryan Loving PLAN OF TREATMENT Medication Medication Name Sig Start Date Stop Date Notes Cipro 500 MG 1 tablet Orally Twic e a day for 10 days 10/05/2024 metroNIDAZOLE 500 MG 1 tablet Orally Thr ee times a day for 10 day(s) 10/05/2024 Next Appt Details Provider Name:Ryan morillo, 03/16/2025 01:45:00 PM, [address] [place], [address],
--- OUTSIDE RECORDS SUMMARY | 2024-10-13 04:45 | XMS_ITS ---
Author Organization Inder Shearer, Address [address] [place] [phone] Care Team Providers Care Biochemistry Technologist Name Role Phone Ryan Loving Primary Care Provider [phone] ALLERGIES Allergen (clinical drug ingredient) Drug/Non Drug Allergy documented on EMR Reaction Allergy Type Onset Date Status Shrimp Flavor vomiting Drug Allergy Act dell RESULTS Component Value Reference Range Notes Urinalysis, Complete-[id number] Reviewed date:10/14/2024 07:01:46 PM Interpretation: Performing Lab:[facility] [address], [place], Phone - [phone], Director - Janae Notes/Report: Clinical Information:SRC: Clinical Information:SRC: Specific [place] 1.024 1.005-1.030 pH 6.0 5.0-7.5 Urine-Color Yellow Yellow Appearance Clear Clear WBC Esterase Negative Negative Protein Negative Negative/Trace Glucose 3+ Negative Ketones Negative Negative Occult Blood Negative Negative Bilirubin Negative Negative Urobilinogen,Semi-Qn 0.2 0.2-1.0 mg/dL Nitrite, Urine Negative Negative Microscopic Examination Micr oscopic follows if indicated. Microscopic Examination See below: Micr oscopic was indicated and was performed. WBC 0-5 0 - 5 /hpf RBC None seen 0 - 2 /hpf Epithelial Cells (non renal) None seen 0 - 10 /hpf Epithelial Cells (renal) Casts None seen None seen /lpf Cast Type Crystals Crystal Type Mucus Threads Bacteria None seen None seen/Few Yeast Trichomonas Comment Urine Culture, [id number] Reviewed date:10/14/2024 07:01:46 PM Interpretation: Performing Lab:[facility] [place], [address] [facility], [place], Phone - [phone], Director - Janae Notes/Report: Clinical Information:SRC:YESSENIA Clinical Information:SRC:UC Urine Culture, Routine Final report Result 1 No growth REASON FOR VISIT (IN OFFICE), Sick Visit MEDICATIONS Medication SIG (Take, Route, Frequency, Duration) Notes Start Date End Date Status Famotidine 40 MG TAKE 1 TABLET BY LISA TH DAILY AT BEDTIME Active Gabapentin 600 MG TAKE 1 TABLET BY LISA TH EVERY DAY Active Jardiance 10 MG 1 tablet Orally Once a day for 30 day(s) Active Omeprazole 20 MG TAKE 1 CAPSULE BY [facility] EVERY DAY Active Rinvoq 15 MG 1 tablet Orally Once a day Active Cyclobenzaprine HCl 10 MG 1 tablet as ne eded Orally 3 times a day for 30 days Active Dicyclomine HCl 10 MG 1 capsules Orally Four times a day for 30 days Active Sertraline HCl 50 MG TAKE 1 TABLET BY [facility] EVERY DAY for 90 Active Ezetimibe 10 MG TAKE 1 TABLET BY LISA TH DAILY for 90 Active Lisinopril 10 MG TAKE 1 TABLET BY LISA TH EVERY DAY Orally Once a day for 90 days Active oxyCODONE HCl 5 MG 1 tablet as needed Orally Once a day partial fill upon request for 30 days 10/02/2024 Active Atorvastatin Calcium 80 MG TAKE 1 TABLET BY MOUTH DAILY for 90 Active Atenolol 50 MG TAKE 1 TABLET BY LISA TH EVERY DAY for 90 Active Fenofibrate 160 MG TAKE 1 TABLET BY LISA TH EVERY DAY for 90 Active Losartan Potassium 25 MG TAKE 1 TABLET B Y MOUTH DAILY for 90 Active Clobetasol Propionate 0.05 % 1 applicati on to affected area Externally Twice a day Active Lisinopril 40 MG TAKE 1 TABLET BY LISA TH EVERY DAY Active Fenofibrate 160 MG TAKE 1 TABLET BY LISA TH EVERY DAY Active Klor-Con M10 10 MEQ 1 tablet Orally QD Active Repatha 140 MG/ML 1 ml Subcutaneous ev quinn 2 weeks for 90 Days Active Gabapentin 800 MG 1 tablet Orally 3 ti mes a day for 30 day(s) Active SOCIAL HISTORY Tobacco Use: Social History Observation Description Date Details (start date - stop date) Former Smoker NA - NA Sex Assigned At : Social History Observation Description Sex Assigned At Unknown Tobacco Use/Smoking Question Answer Notes Are you a former smoker Alcohol Screen Question Answer Notes Did you have a drink contain ing alcohol in the past year? Yes How often did you have a dri nk containing alcohol in the past year? Monthly or less (1 point) How many drinks did you have on a typical day when you were drinking in the past year? 1 or 2 drinks (0 point) How often did you have 6 or more drinks on one occasion in the past year? Never (0 point) Points 1 Interpretation Negative Section Notes: age [age], 1PPD PROBLEMS Problem Type ICD Code Onset Dates Problem Status W/U Status Risk SNOMED Code Notes Problem Left renal mass (N28.89) Active confirmed 079190010 VITAL SIGNS Blood pressure systolic 150 mm Hg 10/14/19 25 Blood pressure diastolic 80 mm Hg 025 Heart Rate 78 /min 10/13/2024 Height 66 in 10/13/2024 Weight 196.8 lbs 10/13/2024 BMI 31.76 kg/m2 10/13/2024 Encounters Encounter Location Date Provider Diagnosis [address] [address] 10/13/2024 Ryan Loving Left renal mass N28. 89 ; Left flank pain R10.9 ; Frequent urination R35.0 ; Irritable bowel syndrome, unspecified type K58.9 and Left sided sciatica M54.32 ASSESSMENTS Encounter Date Diagnosis Assessment Notes Treatment Notes Treatment Clinical Notes Section Notes 10/13/2024 Left renal mass (ICD-10 - N28.89) 10/13/2024 Left flank pain (ICD-10 - R10.9) 10/13/2024 Frequent urination (ICD-10 - R35.0) 10/13/2024 Irritable bowel syndrome, unspecified type (ICD-10 - K58.9) 10/13/2024 Left sided sciatica (ICD-10 - M54.32) 10/13/2024 Other This chart has been transcribed by a computerized dictation system. There are likely to be multiple hall tender inaccuracies despite chart review. PLAN OF TREATMENT Medication Medication Name Sig Start Date Stop Date Notes Cyclobenzaprine HCl 10 MG 1 tablet as ne eded Orally 3 times a day for 30 days Dicyclomine HCl 10 MG 1 capsules Orally Four times a day for 30 days Treatment Notes Assessment Notes Other This chart has been transcribed by a computerized dictation system. There are likely to be multiple hall tender inaccuracies despite chart review. Pending Test Test Name Order Date MRI : Abdomen with and without Contrast 10/13/2024 Next Appt Details Follow Up: as scheduled, [place] son: Provider Name:Ryan morillo, 03/16/2025 01:45:00 PM, [address] [place] [address], [phone], Progress Notes * Examination Category Sub-Category Detail [...] anxiety, depression and left-sided sciatica is here complaining of pain left flank radiating to left groin area for the past few days. She tells me that she had to go to emergency room. We have not received any information from the ER visit. With the patient in the office I accessed this to the website managed to get the ER notes and the CAT scan results. CAT scan revealed a small mass on the left kidney. Radiologist recommended MRI. I ordered MRI abdomen and pelvis with and without IV contrast. Patient has run out of cyclobenzaprine. Since the prescription during the visit. She also tells me that she has been prescribed dicyclomine 10 mg 4 times a day by her slip cover estimator and needs a refill on the medication. Today her systolic blood pressures have become 50. She tells me she gets normal readings at home. Advised patient to monitor her blood pressure at home. She denies chest pain, palpitation, or shortness of breath. She tells me that she has frequent urination without dysuria. I ordered urinalysis and culture sensitivity.
--- OUTSIDE RECORDS SUMMARY | 2024-10-28 04:00 | XMS_ITS ---
Author Organization Inder Shearer Address [address] [place] [phone] Care Team Providers Care Rolled Ham Lacer Name Role Phone Ryan Loving Primary Care [...] quinn 2 weeks for 90 Days Active Lisinopril 40 MG TAKE 1 TABLET BY LISA TH EVERY DAY Active Clobetasol Propionate 0.05 % 1 applicati on to affected area Externally Twice a day Active Losartan Potassium 25 MG 1 tablet Orally Once a day for 90 Days Active Lisinopril 10 MG TAKE 1 TABLET BY LISA TH EVERY DAY Active Atorvastatin Calcium 80 MG 1 tablet Oral ly Once a day for 90 Days Active Dicyclomine HCl 10 MG 1 capsules Orally Four times a day for 30 days Active Famotidine 40 MG TAKE 1 TABLET BY LISA TH DAILY AT BEDTIME for 90 Active Klor-Con M10 10 MEQ 1 tablet Orally QD Active Atenolol 50 MG TAKE 1 TABLET BY LISA TH EVERY DAY Active Lisinopril 10 MG TAKE 1 TABLET BY LISA TH EVERY DAY Orally Once a day for 90 days Active Ezetimibe 10 MG TAKE 1 TABLET BY LISA TH DAILY for 90 Active Sertraline HCl 50 MG TAKE 1 TABLET BY MO [facility] EVERY DAY for 90 Active Atenolol 50 MG TAKE 1 TABLET BY [facility] EVERY DAY for 90 Active Atorvastatin Calcium 80 MG TAKE 1 TABLET BY MOUTH DAILY for 90 Active Losartan Potassium 25 MG TAKE 1 TABLET B Y MOUTH DAILY for 90 Active Cyclobenzaprine HCl 10 MG 1 tablet as ne eded Orally 3 times a day Active Rinvoq 15 MG 1 tablet Orally Once a day Active Fenofibrate 160 MG TAKE 1 TABLET BY [facility] EVERY DAY for 90 Active Famotidine 40 MG TAKE 1 TABLET BY [facility] DAILY AT BEDTIME Active Omeprazole 20 MG TAKE 1 CAPSULE BY [facility] EVERY DAY Active Jardiance 10 MG 1 tablet Orally Once a day for 30 day(s) Active Gabapentin 600 MG TAKE 1 TABLET BY [facility] EVERY DAY Active oxyCODONE HCl 5 MG 1 tablet as needed Orally Twice a day partial fill upon request for 30 days 10/28/2024 Active Gabapentin 800 MG 1 tablet Orally 3 ti mes a day for 30 day(s) Active Sertraline HCl 50 MG TAKE 1 TABLET BY [facility] EVERY DAY Active SOCIAL HISTORY Tobacco Use: [...] Interpretation Negative Section Notes: age [age], 1PPD VITAL SIGNS Blood pressure systolic 140 mm Hg 10/29/19 25 Blood pressure diastolic 80 mm Hg 025 Heart Rate 80 /min 10/28/2024 Height 66 in 10/28/2024 Weight 193.6 lbs 10/28/2024 BMI 31.24 kg/m2 10/28/2024 Encounters Encounter Location Date Provider Diagnosis Inder Shearer, [address] [address] 10/28/2024 Ryan Loving Mixed hyperlipidemia E78.2 ; Lumbar [...] Treatment Notes Treatment Clinical Notes Section Notes 10/28/2024 Mixed hyperlipidemia (ICD-10 - E78.2) 10/28/2024 Lumbar radiculopathy (ICD-10 - M54.16) In accordance [...] prescription in lesser amount. [place] PAT verified. 10/28/2024 Essential hypertension (ICD-10 - I10) 10/28/2024 Ulcerative colitis with complication, unspecified location (ICD-10 - K51.919) 10/28/2024 Type 2 diabetes mellitus without complication, without long-term current use of insulin (ICD-10 - E11.9) 10/28/2024 Leg cramps, sleep related (ICD-10 - G47.62) 10/28/2024 Chronic fatigue (ICD-10 - R53.82) 10/28/2024 Spinal stenosis of lumbosacral region (ICD-10 - M48.07) 10/28/2024 Major depressive disorder with single episode, in remission (ICD-10 - F32.5) 10/28/2024 Irritable bowel syndrome, unspecified type (ICD-10 - K58.9) 10/28/2024 Gastroesophageal reflux disease without esophagitis (ICD-10 - K21.9) 10/28/2024 Psoriasis (ICD-10 - L40.9) 10/28/2024 Primary osteoarthritis of left knee (ICD-10 - M17.12) 10/28/2024 Other This chart has been transcribed by a computerized dictation system. There are likely to be multiple nail polish brush machine feeder inaccuracies despite chart review. PLAN OF TREATMENT Medication Medication Name Sig Start Date Stop Date Notes Fenofibrate 160 MG TAKE 1 TABLET BY LISA TH EVERY DAY Repatha 140 MG/ML 1 ml Subcutaneous ev quinn 2 weeks for 90 Days Lisinopril 40 MG TAKE 1 TABLET BY LISA TH EVERY DAY Clobetasol Propionate 0.05 % 1 applicati on to affected area Externally Twice a day Losartan Potassium 25 MG 1 tablet Orally Once a day for 90 Days Lisinopril 10 MG TAKE 1 TABLET BY LISA TH EVERY DAY Atorvastatin Calcium 80 MG 1 tablet Oral ly Once a day for 90 Days Klor-Con M10 10 MEQ 1 tablet Orally QD Atenolol 50 MG TAKE 1 TABLET BY LISA TH EVERY DAY Cyclobenzaprine HCl 10 MG 1 tablet as ne eded Orally 3 times a day Rinvoq 15 MG 1 tablet Orally Once a day Famotidine 40 MG TAKE 1 TABLET BY LISA TH DAILY AT BEDTIME Omeprazole 20 MG TAKE 1 CAPSULE BY [facility] EVERY DAY Jardiance 10 MG 1 tablet Orally Once a day for 30 day(s) Gabapentin 600 MG TAKE 1 TABLET BY LISA TH EVERY DAY oxyCODONE HCl 5 MG 1 tablet as needed [place] Twice a day partial fill upon request for 30 days 10/28/2024 Gabapentin 800 MG 1 tablet Orally 3 ti mes a day for 30 day(s) Sertraline HCl 50 MG TAKE 1 TABLET BY [facility] EVERY DAY Treatment Notes Assessment Notes Lumbar radiculopathy In [...] to fill the prescription in lesser amount. [facility]. Other This chart has been transcribed by a computerized dictation system. There are likely to be multiple nail polish brush machine feeder inaccuracies despite chart review. Next Appt Details Follow Up: as scheduled, [place] son: Provider Name:Ryan morillo, 03/16/2025 01:45:00 PM, [address] [place] [address], [phone], Progress Notes * Examination Category Sub-Category Detail [...] and left-sided sciatica is here complaining of worsening low back pain which radiates to left lumbar area, groin area and radiates down to the left lower extremity. Patient had MRI of lumbosacral spine done on Saturday last week. Recheck per radiology bedside. The MRI has not been read by radiologist yet. I think the patient that based on MRI findings although either arrange for her to see a neurosurgeon or a pain management. She has been taking oxycodone 5 MG by mouth daily at bedtime to help her sleep. She tells me that she is in significant pain during the day as well. I advise to increase the dose to 1 tablet by mouth twice a day until evaluation by specialist. Also explained to the patient that she can gradually increase the dose of gabapentin to 800 mg by mouth 3 times a day. Her other chronic conditions are well-controlled on current medications.
--- OUTSIDE RECORDS SUMMARY | 2024-12-17 08:00 | XMS_ITS ---
Author Organization [facility] Address [address] [place] [id number] Care Team Providers Care Patient Account Liaison Name Role Phone Ryan Loving Primary Care [...] LISA TH EVERY DAY for 90 Active Omeprazole 20 MG TAKE 1 CAPSULE BY MO UTH EVERY DAY for 90 Active Jardiance 10 MG TAKE 1 TABLET BY LISA TH EVERY DAY for 90 Active Gabapentin 800 MG TAKE 1 TABLET BY LISA TH THREE TIMES DAILY for 30 Active Lisinopril 40 MG TAKE 1 TABLET BY LISA TH EVERY DAY for 90 Active Sertraline HCl 50 MG TAKE 1 TABLET BY MO UTH EVERY DAY for 90 Active Dicyclomine HCl 10 MG 1 capsules Orally Four times a day for 30 days Active Lisinopril 10 MG TAKE 1 TABLET BY LISA TH EVERY DAY Orally Once a day for 90 days Active Ezetimibe 10 MG TAKE 1 TABLET BY LISA TH DAILY for 90 Active Famotidine 40 MG TAKE 1 TABLET BY LISA TH DAILY AT BEDTIME for 90 Active Clobetasol Propionate 0.05 % 1 applicati on to affected area Externally Twice a day Active Atorvastatin Calcium 80 MG TAKE 1 TABLET BY MOUTH DAILY for 90 Active Losartan Potassium 25 MG TAKE 1 TABLET B Y MOUTH DAILY for 90 Active oxyCODONE HCl 5 MG 1 tablet as needed Orally Twice a day partial fill upon request for 30 days 10/28/2024 Active Atenolol 50 MG TAKE 1 TABLET BY LISA EVERY DAY for 90 Active Lisinopril 40 MG TAKE 1 TABLET BY LISA EVERY DAY Active Repatha 140 MG/ML 1 ml Subcutaneous ev quinn 2 weeks for 90 Days Active Fenofibrate 160 MG TAKE 1 TABLET BY LISA EVERY DAY Active Atorvastatin Calcium 80 MG 1 tablet Oral ly Once a day for 90 Days Active Gabapentin 800 MG 1 tablet Orally 3 ti mes a day for 30 day(s) Active Rinvoq 15 MG 1 tablet Orally Once a day Active Lisinopril 10 MG TAKE 1 TABLET BY LISA EVERY DAY Active Losartan Potassium 25 MG 1 tablet Orally Once a day for 90 Days Active Atenolol 50 MG TAKE 1 TABLET BY LISA EVERY DAY Active Klor-Con M10 10 MEQ 1 tablet Orally QD Active Cyclobenzaprine HCl 10 MG 1 tablet as ne eded Orally 3 times a day Active Gabapentin 600 MG TAKE 1 TABLET BY [facility] EVERY DAY Active Famotidine 40 MG TAKE 1 TABLET BY [facility] DAILY AT BEDTIME Active Jardiance 10 MG 1 tablet Orally Once a day for 30 day(s) Active Omeprazole 20 MG TAKE 1 CAPSULE BY [facility] EVERY DAY Active Sertraline HCl 50 MG TAKE 1 TABLET BY [facility] EVERY DAY Active SOCIAL HISTORY Tobacco [...] SIGNS Blood pressure systolic 120 mm Hg 12/18/19 25 Blood pressure diastolic 70 mm Hg 025 Heart Rate 68 /min 12/17/2024 Height 66 in 12/17/2024 Weight 191.2 lbs 12/17/2024 BMI 30.86 kg/m2 12/17/2024 Encounters Encounter Location Date Provider Diagnosis angeli [facility], [address] [place] [address] 12/17/2024 Ryan Pachecojavierilia Mixed hyperlipidemia E78.2 ; Lumbar radiculopathy M54.16 [...] Treatment Notes Treatment Clinical Notes Section Notes 12/17/2024 Mixed hyperlipidemia (ICD-10 - E78.2) 12/17/2024 Lumbar radiculopathy (ICD-10 - M54.16) 12/17/2024 Essential hypertension (ICD-10 - I10) 12/17/2024 Ulcerative colitis with complication, unspecified location (ICD-10 - K51.919) 12/17/2024 Type 2 diabetes mellitus without complication, without long-term current use of insulin (ICD-10 - E11.9) 12/17/2024 Leg cramps, sleep related (ICD-10 - G47.62) 12/17/2024 Chronic fatigue (ICD-10 - R53.82) 12/17/2024 Spinal stenosis of lumbosacral region (ICD-10 - M48.07) 12/17/2024 Major depressive disorder with single episode, in remission (ICD-10 - F32.5) 12/17/2024 Irritable bowel syndrome, unspecified type (ICD-10 - K58.9) 12/17/2024 Gastroesophageal reflux disease without esophagitis (ICD-10 - K21.9) 12/17/2024 Psoriasis (ICD-10 - L40.9) 12/17/2024 Primary osteoarthritis of left knee (ICD-10 - M17.12) 12/17/2024 Other This chart has been transcribed by a computerized dictation system. There are likely to be multiple laundry assistant inaccuracies despite chart review. PLAN OF TREATMENT Medication Medication Name Sig Start Date Stop Date Notes Clobetasol Propionate 0.05 % 1 applicati on to affected area Externally Twice a day Lisinopril 40 MG TAKE 1 TABLET BY LISA TH EVERY DAY Repatha 140 MG/ML 1 ml Subcutaneous ev quinn 2 weeks for 90 Days Fenofibrate 160 MG TAKE 1 TABLET BY LISA TH EVERY DAY Atorvastatin Calcium 80 MG 1 tablet Oral ly Once a day for 90 Days Gabapentin 800 MG 1 tablet Orally 3 ti mes a day for 30 day(s) Rinvoq 15 MG 1 tablet Orally Once a day Lisinopril 10 MG TAKE 1 TABLET BY LISA TH EVERY DAY Losartan Potassium 25 MG 1 tablet Orally Once a day for 90 Days Atenolol 50 MG TAKE 1 TABLET BY LISA TH EVERY DAY Klor-Con M10 10 MEQ 1 tablet Orally QD Cyclobenzaprine HCl 10 MG 1 tablet as ne eded Orally 3 times a day Gabapentin 600 MG TAKE 1 TABLET BY LISA TH EVERY DAY Famotidine 40 MG TAKE 1 TABLET BY LISA TH DAILY AT BEDTIME Jardiance 10 MG 1 tablet Orally Once a day for 30 day(s) Omeprazole 20 MG TAKE 1 CAPSULE BY MO UTH EVERY DAY Sertraline HCl 50 MG TAKE 1 TABLET BY MO UTH EVERY DAY Treatment Notes Assessment Notes Other This chart has been transcribed by a computerized dictation system. There are likely to be multiple laundry assistant inaccuracies despite chart review. Next Appt Details Follow Up: 3 Months, Reason: Follow up with Dr. Loving Provider Name:Ryan morillo, 03/16/2025 01:45:00 PM, [address] [place] [address], [phone], Progress Notes * Examination Category Sub-Category Detail Notes Category Not es General Examination GENERAL APPEARANCE: in no ac [place] distress, well developed, well nourished HEAD: normocephalic, [...] depression and left-sided sciatica is here for follow-up. Since last visit she has been evaluated by spine surgeon at [facility] and is supposed to undergo surgery. She tells me that she is very pleased with the consultation and is hoping that her pain will hold go away after the procedure. She tells me that she has a stopped taking oxycodone and continues to take gabapentin and occasionally Tylenol or ibuprofen. I discussed her lab results with her during the visit within acceptable range. Her blood pressure is well-controlled. She denies chest pain, palpitations, or shortness of breath. Her ulcerative colitis is well controlled on current dose of Rinvoq. Patient denies chest pain, palpitations, or shortness of breath.
--- OUTSIDE RECORDS SUMMARY | 2025-01-13 09:06 | XMS_ITS | Patient Health Record ---
Author Organization Inder Shearer Address [address] [place] [address] Care Team Providers Care Rotary Driller Helper Name Role Phone Ryan Loving Primary Care Provider ALLERGIES Allergen (clinical drug ingredient) Drug/Non Drug Allergy documented on EMR Reaction Allergy Type Onset Date Status Shrimp Flavor vomiting Drug Allergy Act dell RESULTS Component Value Reference Range Notes Hemoglobin [id number] Reviewed date:07/09/2024 08:43:26 AM Interpretation: Performing Lab:[facility], [address] [facility], Phone - [phone], Director - MDYamilethdry Notes/Report: Hemoglobin A1c 6.6 4.8-5.6 % . Prediabetes: 5.7 - 6.4 Diabetes: >6.4 Glycemic control for adults with diabetes: <7.0 Lipid Panel-[id number] Reviewed date:07/09/2024 08:43:26 AM Interpretation: Performing Lab:[email or web address], [facility] [place], Phone - [phone], Director - MDJodry Notes/Report: Cholesterol, Total 160 100-199 mg/dL Triglycerides 337 0-149 mg/dL HDL Cholesterol 6 >39 mg/dL Verified b y repeat analysis VLDL Cholesterol King 57 5-40 mg/dL LDL Chol Calc [facility] 97 0-99 mg/dL LDL Calc Comment: Comp. Metabolic Panel (13)-[id number] Reviewed date:07/09/2024 08:43:26 AM Interpretation: Performing Lab:[facility], [address] [facility] [place], Phone - [phone], Director - MDJodry Notes/Report: Glucose 115 70-99 [...] IU/L AST (SGOT) 44 0-40 IU/L Hemoglobin [id number] Reviewed date:04/15/2024 07:14:40 AM Interpretation: Performing Lab:Julianna Garber [address] [place] [address], Phone - [phone], Director - Janae Notes/Report: Hemoglobin A1c 6.7 4.8-5.6 % . Prediabetes: 5.7 - 6.4 Diabetes: >6.4 Glycemic control for adults with diabetes: <7.0 Lipid Panel-[id number] Reviewed date:04/15/2024 07:14:40 AM Interpretation: Performing Lab:Julianna Garber [address] [place] [address], Phone - [phone], Director - Janae Notes/Report: Cholesterol, Total 181 100-199 mg/dL Triglycerides 491 0-149 mg/dL HDL Cholesterol 6 >39 mg/dL VLDL Cholesterol King 82 5-40 mg/dL LDL Chol Calc ([facility] 93 0-99 mg/dL LDL Calc Comment: Comp. Metabolic Panel (13)-3 [id number] Reviewed date:04/15/2024 07:14:40 AM Interpretation: Performing Lab:Julianna Garber [address] [place] [address], Phone - [phone], Director - Janae Notes/Report: Glucose 129 70-99 [...] IU/L AST (SGOT) 39 0-40 IU/L LP+Non-HDL Cholesterol-15943 5 Reviewed date:12/11/2024 09:21:58 AM Interpretation: Performing Lab:Julianna Garber, [address] [place] [address], Phone - [phone], Director - MDEkaterinay Notes/Report: Cholesterol, Total 79 100-199 mg/dL Triglycerides 292 0-149 mg/dL HDL Cholesterol 5 >39 mg/dL Verified b y repeat analysis VLDL Cholesterol King 44 5-40 mg/dL LDL Chol Calc ([facility]) 30 0-99 mg/dL LDL Calc Comment: Non-HDL Cholesterol 74 0-129 mg/dL Hepatic Function Panel (6)-3 [id number] Reviewed date:12/11/2024 09:21:58 AM Interpretation: Performing Lab:Julianna Garber, [address] [facility], [place], Phone - [phone], Director - MDMark Notes/Report: Albumin 4.3 3.8-4.8 [...] (Benign) Lay letter mailed to patient WSN: [id number] Ordering Physician: Ryan Loving Dictated By: Shelley Looney MD Hip Comp 2 Views Left Reviewed date:10/06/2024 08:30:31 AM Interpretation: Performing Lab: Notes/Report: Hip Comp 2 Views Left Reason: left groin pain COMPARISON: 02/24/2024 FINDINGS: No fracture or dislocation. No lytic or blastic lesions. Well preserved joint space. Normal femoral head contour without evidence of avascular necrosis. Normal soft tissues. IMPRESSION: Normal. WSN: [id number] Ordering Physician: Ryan Loving Dictated By: Jacob Verduzco MD Urinalysis, Complete-[id number] Reviewed date:10/14/2024 07:01:46 PM Interpretation: Performing Lab:Julianna Garber, [address] [place] [address], [place], Phone - [phone], Director - Janae Notes/Report: Clinical Information:SRC: Clinical Information:SRC: Specific Jackpot 1.024 1.005-1.030 pH 6.0 5.0-7.5 Urine-Color Yellow [...] None seen/Few Yeast Trichomonas Comment Urine Culture, Routine-[id number] 7 Reviewed date:10/14/2024 07:01:46 PM Interpretation: Performing Lab:[facility] Garber, [address], [place], Phone - [phone], Director - Janae Notes/Report: Clinical Information:SRC:UC Clinical Information:SRC: Urine Culture, Routine Final report [...] get the frist few pages Clinical Notes [facility] [place], P: , F: [phone] Referral Priority Routine MEDICATIONS Medication SIG (Take, Route, Frequency, Duration) Notes Start Date End Date Status Lisinopril 40 MG TAKE 1 TABLET BY LISA TH EVERY DAY Active Dicyclomine HCl 10 MG 1 capsules Orally Four times a day for 30 days Active Clobetasol Propionate 0.05 % 1 applicati on to affected area Externally Twice a day Active Ezetimibe 10 MG TAKE 1 TABLET BY LISA TH DAILY for 90 Active Losartan Potassium 25 MG 1 tablet Orally Once a day for 90 Days Active Losartan Potassium 25 MG TAKE 1 TABLET B Y MOUTH DAILY for 90 Active Fenofibrate 160 MG TAKE 1 TABLET BY LISA TH EVERY DAY Active Omeprazole 20 MG TAKE 1 CAPSULE BY MO UT EVERY DAY for 90 Active Jardiance 10 [...] TABLET BY MOUTH DAILY for 90 Active Gabapentin 800 MG 1 tablet Orally 3 ti mes a day for 30 day(s) Active Klor-Con M10 10 MEQ 1 tablet Orally QD Active Repatha 140 MG/ML INJECT 140MG(1ML) EV YOLANDE 2 WEEKS for 84 Active Lisinopril 10 MG TAKE 1 TABLET BY [facility] EVERY DAY for 90 Active Cyclobenzaprine HCl 10 MG 1 tablet as ne eded Orally 3 times a day Active Gabapentin 600 MG [facility] Active Rinvoq 15 MG 1 tablet Orally Once a day Active Famotidine 40 MG TAKE 1 TABLET BY LISA DAILY AT BEDTIME Active Fenofibrate 160 MG TAKE 1 TABLET BY [facility] EVERY DAY for 90 Active Jardiance 10 MG 1 tablet Orally Once a day for 30 day(s) Active oxyCODONE HCl 5 MG 1 tablet as needed Orally Twice a day partial fill upon request for 30 days 10/28/2024 Active Omeprazole 20 MG TAKE 1 CAPSULE BY [facility] EVERY DAY Active Sertraline HCl 50 MG TAKE 1 TABLET BY [facility] EVERY DAY for 90 Active IMMUNIZATIONS Vaccine [...] Notes Problem Depression (F32.9) Active confirmed 354 23376 Problem Anxiety (F41.9) Active confirmed 298928 02 Problem Left sided sciatica (M54.32) Active confirmed 858523410389314 Problem Psoriasis (L40.9) Active confirmed 9014 002 Problem Acute diverticulitis (K57.92) Active confirmed 531476731 Problem Mixed hyperlipidemia (E78.2) Active confirmed 601521196 Problem Essential hypertension (I10) Active confirmed 02545725 Problem Chronic fatigue (R53.82) Active confirmed 74253682 Problem Gastroesophageal reflux disease without esophagitis (K21.9) Active confirmed 933394122 Problem Primary osteoarthritis involving multiple joints (M15.0) Active confirmed 557374764 Problem Primary osteoarthritis of left knee (M17.12) Active confirmed 371715246303119 Problem Gout, unspecified cause, unspecified chronicity, unspecified site (M10.9) Active confirmed 84372629 Problem Contact dermatitis, contact dermatitis due to unspecified agent, unspecified contact dermatitis (L25.9) Active confirmed 61120905 Problem Spinal stenosis of lumbosacral region (M48.07) Active confirmed 37300140 Problem Ulcerative colitis with complication, unspecified location (K51.919) Active confirmed 99308879 Problem Lumbar radiculopathy (M54.16) Active confirmed 266779325 Problem Irritable bowel syndrome, unspecified type (K58.9) Active confirmed 75949743 Problem Type 2 diabetes mellitus without complication, without long-term current use of insulin (E11.9) Active confirmed 691188993 Problem Left renal mass (N28.89) Active confirmed 876161766 Problem At increased risk of exposure to COVID-19 virus (Z91.89) Active confirmed 100962989 Problem Major depressive disorder with single episode, 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) Active confirmed Single epi sode of major depression in full remission (78995334) Problem Leg cramps, sleep related (G47.62) Active confirmed 718940439 VITAL SIGNS Heart Rate 68 /min 12/17/2024 Blood pressure diastolic 70 mm Hg 12/17/2024 Height 66 in 12/17/2024 Blood pressure systolic 120 mm Hg 12/17/2024 Weight 191.2 lbs 12/17/2024 BMI 30.86 kg/m2 12/17/2024 Encounters Encounter Location Date Provider Diagnosis [address] [address] 01/14/[address] [address] 01/21/2024 Ryan Loving Essential hypertensi on I10 [...] and Primary osteoarthritis of left knee M17.[address] [address] 01/21/[address] [address] 02/24/2024 Ryan Loving Essential hypertensi on I10 [...] hip M89.8X5 and Left sided sciatica M54.[address] [address] 03/11/2024 Ryan Loving Mixed hyperlipidemia E78.2 ; [...] knee M17.12 and Left sided sciatica M54.[address] [address] 03/23/2024 Ryan Loving Essential hypertensi on I10 [...] and Primary osteoarthritis of left knee M17.[address] [address] 04/22/2024 Ryan Davidsonm Mixed hyperlipidemia E78.2 ; Lumbar radiculopathy M54.16 [...] and Primary osteoarthritis of left knee M17.[address] [address] 04/23/[address] [address] 05/06/[address] [address] 05/21/2024 Ryan [facility] Mixed hyperlipidemia E78.2 ; Lumbar radiculopathy M54.16 [...] knee M17.12 and Annual physical exam Z00.[address] [address] 07/16/2024 Ryan [facility] Mixed hyperlipidemia E78.2 ; Lumbar radiculopathy M54.16 [...] and Primary osteoarthritis of left knee M17.[address] [address] 08/20/2024 Ryan Loving Mixed hyperlipidemia E78.2 ; [...] and Primary osteoarthritis of left knee M17.[address] [address] 09/15/2024 Ryan Loving Mixed hyperlipidemia E78.2 ; [...] and Primary osteoarthritis of left knee M17.[address] [address] 10/02/2024 Ryan Loving Acute diverticulitis K57.92 ; Left groin pain R10.32 and Left sided sciatica M54.[address] [address] 10/05/2024 Ryan Loving [address] [address] 10/13/2024 Ryan Loving Left renal mass N28. 89 ; Left flank pain R10.9 ; Frequent urination R35.0 ; Irritable bowel syndrome, unspecified type K58.9 and Left sided sciatica M54.[address] [address] 10/28/2024 Ryan Loving Mixed hyperlipidemia E78.2 ; [...] and Primary osteoarthritis of left knee M17.[address] [address] 12/17/2024 Ryan Loving Mixed hyperlipidemia E78.2 ; [...] Treatment Notes Treatment Clinical Notes Section Notes 01/21/2024 Essential hypertension (ICD-10 - I10) 04/22/2024 Mixed hyperlipidemia (ICD-10 - E78.2) 12/17/2024 Mixed hyperlipidemia (ICD-10 - E78.2) 03/23/2024 Essential hypertension (ICD-10 - I10) 02/24/2024 Essential hypertension (ICD-10 - I10) 03/11/2024 Mixed hyperlipidemia (ICD-10 - E78.2) 03/11/2024 Lumbar radiculopathy (ICD-10 - M54.16) 05/21/2024 Mixed hyperlipidemia (ICD-10 - E78.2) 09/15/2024 Mixed hyperlipidemia (ICD-10 - E78.2) 07/16/2024 Mixed hyperlipidemia (ICD-10 - E78.2) 08/20/2024 Mixed hyperlipidemia (ICD-10 - E78.2) 10/13/2024 Left renal mass (ICD-10 - N28.89) 10/28/2024 Mixed hyperlipidemia (ICD-10 - E78.2) 10/13/2024 Left flank pain (ICD-10 - R10.9) 10/02/2024 Acute diverticulitis (ICD-10 - K57.92) 10/02/2024 Left groin pain (ICD-10 - R10.32) 07/16/2024 Essential hypertension (ICD-10 - I10) 05/21/2024 Essential hypertension (ICD-10 - I10) 07/16/2024 Lumbar [...] prescription in lesser amount. [place] PAT verified. 05/21/2024 Lumbar radiculopathy (ICD-10 - M54.16) 03/11/2024 Essential hypertension (ICD-10 - I10) 02/24/2024 Ulcerative colitis with complication, unspecified location (ICD-10 - K51.919) 02/24/2024 Mixed hyperlipidemia (ICD-10 - E78.2) 03/23/2024 Mixed hyperlipidemia (ICD-10 - E78.2) 04/22/2024 Lumbar radiculopathy (ICD-10 - M54.16) 04/22/2024 Essential hypertension (ICD-10 - I10) 01/21/2024 Ulcerative colitis with complication, unspecified location (ICD-10 - K51.919) 01/21/2024 Mixed hyperlipidemia (ICD-10 - E78.2) 09/15/2024 Essential hypertension (ICD-10 - I10) 10/02/2024 Left sided sciatica (ICD-10 - M54.32) [...] to fill the prescription in lesser amount. [facility] verified. 12/17/2024 Lumbar radiculopathy (ICD-10 - M54.16) 08/20/2024 Lumbar radiculopathy (ICD-10 - M54.16) In accordance with Chapter 52 - Acts of 2015, '' An Act Relative to Substance Use [...] to fill the prescription in lesser amount. [facility] verified. 10/13/2024 Frequent urination (ICD-10 - R35.0) 10/28/2024 Essential hypertension (ICD-10 - I10) 10/28/2024 Lumbar [...] to fill the prescription in lesser amount. [place] PAT verified. 08/20/2024 Essential hypertension (ICD-10 - I10) 09/15/2024 Lumbar radiculopathy (ICD-10 - M54.16) In [...] to fill the prescription in lesser amount. [facility] verified. 12/17/2024 Essential hypertension (ICD-10 - I10) 12/17/2024 Ulcerative colitis with complication, unspecified location (ICD-10 - K51.919) 01/21/2024 Type 2 diabetes mellitus without complication, without long-term current use of insulin (ICD-10 - E11.9) 04/22/2024 Ulcerative colitis with complication, unspecified location (ICD-10 - K51.919) 10/13/2024 Irritable bowel syndrome, unspecified type (ICD-10 - K58.9) 10/28/2024 Ulcerative colitis with complication, unspecified location (ICD-10 - K51.919) 03/11/2024 Ulcerative colitis with complication, unspecified location (ICD-10 - K51.919) 02/24/2024 Type 2 diabetes mellitus without complication, without long-term current use of insulin (ICD-10 - E11.9) 05/21/2024 Ulcerative colitis with complication, unspecified location (ICD-10 - K51.919) 08/20/2024 Ulcerative colitis with complication, unspecified location (ICD-10 - K51.919) 07/16/2024 Ulcerative colitis with complication, unspecified location (ICD-10 - K51.919) 03/23/2024 Ulcerative colitis with complication, unspecified location (ICD-10 - K51.919) 09/15/2024 Ulcerative colitis with complication, unspecified location (ICD-10 - K51.919) 03/11/2024 Type 2 diabetes mellitus without complication, [...] cramps, sleep related (ICD-10 - G47.62) 12/17/2024 Type 2 diabetes mellitus without complication, without long-term current use of insulin (ICD-10 - E11.9) 02/24/2024 Leg cramps, sleep related (ICD-10 - G47.62) 10/13/2024 Left sided sciatica (ICD-10 - M54.32) 10/28/2024 Leg cramps, sleep related (ICD-10 - G47.62) 12/17/2024 Leg cramps, sleep related (ICD-10 - G47.62) 09/15/2024 Leg cramps, sleep related (ICD-10 - G47.62) 08/20/2024 Leg cramps, sleep related (ICD-10 - G47.62) 07/16/2024 Leg cramps, sleep related (ICD-10 - G47.62) 05/21/2024 Leg cramps, sleep related (ICD-10 - G47.62) 03/11/2024 Leg cramps, sleep related (ICD-10 - G47.62) 02/24/2024 Chronic fatigue (ICD-10 - R53.82) 03/23/2024 Leg cramps, sleep related (ICD-10 - G47.62) 04/22/2024 Leg cramps, sleep related (ICD-10 - G47.62) 01/21/2024 Chronic fatigue (ICD-10 - R53.82) 09/15/2024 Chronic fatigue (ICD-10 - R53.82) 12/17/2024 Chronic fatigue (ICD-10 - R53.82) 10/28/2024 Chronic fatigue (ICD-10 - R53.82) 08/20/2024 Chronic fatigue (ICD-10 - R53.82) 04/22/2024 Chronic fatigue (ICD-10 - R53.82) 07/16/2024 Chronic fatigue (ICD-10 - R53.82) 05/21/2024 Chronic fatigue (ICD-10 - R53.82) 03/11/2024 Chronic fatigue (ICD-10 - R53.82) 02/24/2024 Spinal stenosis of lumbosacral region (ICD-10 - M48.07) 01/21/2024 Spinal stenosis of lumbosacral region (ICD-10 - M48.07) 03/23/2024 Chronic fatigue (ICD-10 - R53.82) 01/21/2024 Major depressive disorder with single episode, in remission (ICD-10 - F32.5) 10/28/2024 Spinal stenosis of lumbosacral region (ICD-10 - M48.07) 04/22/2024 Spinal stenosis of lumbosacral region (ICD-10 - M48.07) 03/23/2024 Spinal stenosis of lumbosacral region (ICD-10 - M48.07) 02/24/2024 Major depressive disorder with single episode, in remission (ICD-10 - F32.5) 03/11/2024 Spinal stenosis of lumbosacral region (ICD-10 - M48.07) 12/17/2024 Spinal stenosis of lumbosacral region (ICD-10 - M48.07) 05/21/2024 Spinal stenosis of lumbosacral region (ICD-10 - M48.07) 09/15/2024 Spinal stenosis of lumbosacral region (ICD-10 - M48.07) 07/16/2024 Spinal stenosis of lumbosacral region (ICD-10 - M48.07) 08/20/2024 Spinal stenosis of lumbosacral region (ICD-10 - M48.07) 03/11/2024 Major depressive disorder with single episode, [...] episode, in remission (ICD-10 - F32.5) 12/17/2024 Major depressive disorder with single episode, [...] syndrome, unspecified type (ICD-10 - K58.9) 12/17/2024 Irritable bowel syndrome, unspecified type (ICD-10 [...] - K21.9) 01/21/2024 Psoriasis (ICD-10 - L40.9) 04/22/2024 Gastroesophageal reflux disease without esophagitis (ICD-10 - K21.9) 03/23/2024 Gastroesophageal reflux disease without esophagitis (ICD-10 - K21.9) 02/24/2024 Psoriasis (ICD-10 - L40.9) 03/11/2024 Gastroesophageal reflux disease without esophagitis (ICD-10 - K21.9) 12/17/2024 Psoriasis (ICD-10 - L40.9) 10/28/2024 Psoriasis (ICD-10 - L40.9) 09/15/2024 Psoriasis (ICD-10 - L40.9) 03/11/2024 Psoriasis (ICD-10 - L40.9) 05/21/2024 Psoriasis (ICD-10 - L40.9) 02/24/2024 Primary osteoarthritis of left knee (ICD-10 - M17.12) 07/16/2024 Psoriasis (ICD-10 - L40.9) 03/23/2024 Psoriasis (ICD-10 - L40.9) 08/20/2024 Psoriasis (ICD-10 - L40.9) 04/22/2024 Psoriasis (ICD-10 - L40.9) 01/21/2024 Primary osteoarthritis [...] bone lesion of hip (ICD-10 - M89.8X5) 08/20/2024 Primary osteoarthritis of left knee (ICD-10 - M17.12) 03/11/2024 Primary osteoarthritis of left knee (ICD-10 - M17.12) 02/24/2024 Left sided sciatica (ICD-10 - M54.32) [...] prescription in lesser amount. [place] PAT verified. 05/21/2024 Annual physical exam (ICD-10 - [...] to fill the prescription in lesser amount. [place] PAT verified. 05/21/2024 Other This chart has been transcribed by a computerized dictation system. There are likely to be multiple cosmetology instructor inaccuracies despite chart review. 01/21/2024 Other This chart has been transcribed by a computerized dictation system. There are likely to be multiple cosmetology instructor inaccuracies despite chart review. 04/22/2024 Other This chart has been transcribed by a computerized dictation system. There are likely to be multiple cosmetology instructor inaccuracies despite chart review. In accordance with [...] to fill the prescription in lesser amount. [facility] verified. 03/23/2024 Other This chart has been transcribed by a computerized dictation system. There are likely to be multiple cosmetology instructor inaccuracies despite chart review. 02/24/2024 Other This chart has been transcribed by a [employer] dictation system. There are likely to be multiple cosmetology instructor inaccuracies despite chart review. 03/11/2024 Other This chart has been transcribed by a [employer] dictation system. There are likely to be multiple cosmetology instructor inaccuracies despite chart review. 07/16/2024 Other This chart has been transcribed by a [employer] dictation system. There are likely to be multiple cosmetology instructor inaccuracies despite chart review. 08/20/2024 Other This chart has been transcribed by a [employer] dictation system. There are likely to be multiple cosmetology instructor inaccuracies despite chart review. 12/17/2024 Other This chart has been transcribed by a [employer] dictation system. There are likely to be multiple cosmetology instructor inaccuracies despite chart review. 09/15/2024 Other This chart has been transcribed by a computerized dictation system. There are likely to be multiple cosmetology instructor inaccuracies despite chart review. 10/02/2024 Other This chart has been transcribed by a [employer] dictation system. There are likely to be multiple cosmetology instructor inaccuracies despite chart review. 10/13/2024 Other This chart has been transcribed by a computerized dictation system. There are likely to be multiple cosmetology instructor inaccuracies despite chart review. 10/28/2024 Other This chart has been transcribed by a computerized dictation system. There are likely to be multiple cosmetology instructor inaccuracies despite chart review. PLAN OF TREATMENT [...] X-ray PA and lateral 03/11/2013 MAMMOGRAM, SCREENING 12/12/2016 MAMMOGRAM, SCREENING 01/10/2023 MAMMOGRAM, SCREENING 11/30/2015 MAMMOGRAM, SCREENING 10/12/2014 Ultrasound : Abdomen, upper 07/02/2019 Bone Density 10/12/2014 Bone Density 11/30/2015 Bone Density 01/10/2023 MRI : Pelvis 02/24/2024 Ultrasound : Kidneys and Bladder 021 MRI : Abdomen with and without Contrast 10/13/2024 GUAIAC, SINGLE SPECIMEN 11/30/2015 GUAIAC, SINGLE SPECIMEN 03/11/2019 *EKG 09/07/2020 Thin Prep 11/30/2015 URIC ACID 04/01/2017 HEMOGLOBIN A1C 04/01/2017 HEMOGLOBIN A1C 07/17/2017 HEMOGLOBIN A1C 12/12/2016 BASIC METABOLIC PANEL 06/08/2014 BASIC METABOLIC PANEL 08/14/2016 COMPREHENSIVE METABOLIC PANL 04/01/2017 LIPID PANEL 08/14/2016 LIPID PANEL 04/01/2017 LIPID PANEL 01/28/2015 LIPID PANEL 01/04/2016 LIPID PANEL 06/08/2014 LIPID PANEL 06/20/2015 HEPATIC FUNCTION PANEL 06/20/2015 HEPATIC FUNCTION PANEL 06/08/2014 HEPATIC FUNCTION PANEL 03/08/2014 HEPATIC FUNCTION PANEL 01/04/2016 HEPATIC FUNCTION PANEL 01/28/2015 HEPATIC FUNCTION PANEL 08/14/2016 HEPATIC FUNCTION PANEL 04/01/2017 THYROID PANEL 08/14/2016 THYROID PANEL 09/26/2015 25OH VITAMIN D 08/14/2016 COMPLETE CBC WITH DIFF 08/14/2016 LYME AB 09/26/2015 COMPLETE URINALYSIS 08/14/2016 MRI Lumbar Spine W/O Contrast 04/24/2024 BASIC METABOLIC PANEL 02/22/2022 CBC (COMPLETE BLOOD COUNT) WITH DIFF COMPREHENSIVE METABOLIC PANEL 04/12/2023 COMPREHENSIVE METABOLIC PANEL 10/24/2021 COMPREHENSIVE METABOLIC PANEL 03/23/2021 COVID-19 (NOVEL CORONAVIRUS) PCR 022 HEMOGLOBIN A1C 09/12/2022 HEMOGLOBIN A1C 05/22/2022 HEMOGLOBIN A1C 04/12/2023 HEMOGLOBIN A1C 01/10/2023 HEMOGLOBIN A1C 02/22/2022 HEMOGLOBIN A1C 10/24/2021 HEMOGLOBIN A1C 03/23/2021 HEPATIC FUNCTION PANEL 02/22/2022 LIPID PANEL 02/22/2022 LIPID PANEL 10/24/2021 LIPID PANEL 04/12/2023 LIPID PANEL 09/12/2022 LIPID PANEL 03/23/2021 MICROALBUMIN, URINE 10/24/2021 SEDIMENTATION RATE 09/12/2022 C. DIFFICILE TOXIN PCR 03/26/2023 CT Chest LDCT Lung Program 01/24/2022 Next Appt Details Provider Name:Ryan morillo, 03/16/2025 01:45:00 PM, [address] [place], [address], Insurance Providers Payer Name Payer Address Payer Phone Subscriber Number Group Number Insured Name Patient Relationship to Insured Coverage Start Date Coverage End Date [employer] [address] [place] [address] [id number] Kaylen Calderón am Self - patient is the insured [facility] [address] [place] [address] [id number] Kaylen Calderón am Self - patient is the insured MEDICAL (GENERAL) HISTORY Medical History History ICD Code HTN Hyperlipidemia DJD GERD Gout Anxiety Ulcerative Colitis Psoriasis Surgical History Surgery Date(Month/Year) Bladder sling 2007 Bilateral cataract removal Hospitalization History Reason Date(Month/Year) Low back, disc For above procedure
--- OUTSIDE RECORDS SUMMARY | 2025-01-13 09:06 | XMS_ITS | Patient Health Record ---
Author Organization [facility] Address [address] [place] [phone] Care Team Providers Care Guest Relations Executive Name Role Phone DINAH LOVING MD Primary Care Provider BRETT Naylor Unavailable [phone] Allergies Allergen (clinical drug ingredient) Drug/Non Drug Allergy documented on EMR Reaction Allergy Type Onset Date Status Iodine Unknown Drug Allergy Active Reason For Referral No Information Medications Medication SIG (Take, Route, Frequency, Duration) Notes Start Date End Date Status Atenolol 50 MG Tablet 1 tablet Orally Once a day Active Rinvoq Active Methotrexate 6 pills q weekly Not-Taking/FL N Tylenol 325 MG Tablet 1 tablet as needed Orally every 4 hrs Active Furosemide 20 g Not-Takin g/FL N Zoloft 10 mg Active Stelara 45 MG/0.5ML Solution as directed Subcutaneous Not-Taking/FL N Omeprazole 40 MG Capsule Delayed Release [...] osteoarthritis of the pelvic region and thigh (912636283) Unilateral primary osteoarthritis, right hip (M16.11) Active confirmed Problem Lumbosacral spondylosis without myelopathy (99723239) Spondylosis without myelopathy or radiculopathy, lumbar region (M47.816) Active confirmed Problem Lumbar radiculopathy (403898601) Radiculopathy, lumbar region (M54.16) Active confirmed Vital Signs Heart Rate 66 /min 06/29/2024 Temperature 97.8 degrees Fahrenheit 06/29/2024 Oximetry 97 % 06/29/2024 Blood pressure diastolic 81 mm Hg 06/29/2024 Height 66 in 06/29/2024 Blood pressure systolic 143 mm Hg 06/29/2024 Weight 196 lbs 06/29/2024 BMI 31.63 kg/m2 06/29/2024 Encounters Encounter Location Date Provider Diagnosis [facility] [address] [place] [phone] [facility], lumbar region M54.16 and 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 Z79.899 [facility] [address] [place] [phone] 05/30/2024 BRETT FARID 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 Z79.899 and Unilateral primary osteoarthritis, right hip M16.11 [facility] [address] [place] [phone] 06/29/2024 BRETT FARID Other [facility] (current) drug therapy Z79.899 and Unilateral primary osteoarthritis, right hip M16.11 [facility] [address] [place] [phone] 06/29/2024 BRETT FARID Assessments Encounter Date Diagnosis (ICD Code) Assessment Notes Treatment Notes Treatment Clinical Notes Section Notes 05/11/2024 Radiculopathy, lumbar region (ICD-10 - M54.16) the last right lumbar 3 and 4 transforaminal epidural steroid injection done on 08/18/2023 offered the patient 90% relief of pain improve mobility activity analgesia range of motion and ability to stand, walk, sleep, spanish moss picker objects from the floor, clean and cook [...] if needed at this point 05/11/2024 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 (ICD-10 - Z79.899) 05/30/2024 Other [facility] (current) drug therapy (ICD-10 - Z79.899) 06/29/2024 Other [facility] (current) drug therapy (ICD-10 - Z79.899) 06/29/2024 [...] Start Date Coverage End Date Medicare [address] [place] [phone] [id number] PERI MORA AM Self - patient is the insured [place] [place] [address] [place] [address] [phone] [id number] PERI MORA AM Self - patient is the insured Medical (General) History Medical History History ICD Code depression anxiety psoriasis mixed hyperlipidemia gastroesophageal reflux disease osteoarthritis gout spinal stenosis of lumbar ibs ulcerative colitis Surgical History Surgery Date(Month/Year) Hospitalization History Reason Date(Month/Year) [facility]
[2025-01-25 16:57] VITALS: BMI 32.1
--- NOTE | 2025-01-27 12:48 | HO.ANESPROP2 ---
Documented by User: June You NP 01/27/25 12:51 HPI - Anesthesia Eval Consult details Narrative: 69yo F for L1-2 MicroLumbar discectomy, 02/04/25 Anesthesia Pre-Procedure Meds Is the patient on any of the following meds?: SGLT2 Inhib PMFSH Active Problems Active Problems: All Active Problems Lumbar disc herniation (Acute) Past Medical History Medical History IBS (irritable bowel syndrome) Type 2 diabetes mellitus Chronic fatigue Left sided sciatica Depression Anxiety Psoriasis DJD (degenerative joint disease) Gout Arthritis Wears dentures Pre-diabetes Leg pain, bilateral Back pain GERD (gastroesophageal reflux disease) HLD (hyperlipidemia) HTN (hypertension) Surgical History Surgical History Hx of blepharoplasty (~2023) Hx of colonoscopy Hx of bilateral cataract extraction (~2020) Social History Social History Household Members: None Housing: House Are you a primary cna caregiver to a significant other at home: No Do you presently have visiting nurse or other home services: No 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 If so, by whom?: No Are you DNR?: No Advance Directives: No Advance Directives Information Provided: Yes Advance Directives on File: No Meds Allergies Allergy/AdvReac Type Severity Reaction Status Date / Time scallops Allergy Vomiting Verified 02/04/25 07:21 shrimp Allergy Vomiting Verified 02/04/25 07:21 Home Medications ?Medication ?Instructions ?Recorded ?Confirmed ?Last Taken ?Type atenolol 50 mg tablet 50 mg PO DAILY 01/25/25 02/04/25 Unknown History atorvastatin 80 mg tablet 80 mg PO DAILY 01/25/25 02/04/25 Unknown History cyclobenzaprine 10 mg tablet 10 mg PO TID PRN Muscle Spasm 01/25/25 02/04/25 Unknown History dicyclomine 10 mg capsule 10 mg PO QID 01/25/25 02/04/25 Unknown History empagliflozin 10 mg tablet 10 mg PO DAILY 01/25/25 02/04/25 Unknown History (Jardiance) evolocumab 140 mg/mL subcutaneous 140 mg subcut Q2W 01/25/25 02/04/25 Unknown History syringe (Repatha Syringe) ezetimibe 10 mg tablet 10 mg PO DAILY 01/25/25 02/04/25 02/01/25 History famotidine 40 mg tablet 40 mg PO BEDTIME 01/25/25 02/04/25 Unknown History fenofibrate 160 mg tablet 160 mg PO DAILY 01/25/25 02/04/25 Unknown History gabapentin 800 mg tablet 800 mg PO TID 01/25/25 02/04/25 Unknown History lisinopril 10 mg tablet 10 mg PO DAILY 01/25/25 02/04/25 Unknown History lisinopril 40 mg tablet 40 mg PO DAILY 01/25/25 02/04/25 Unknown History losartan 25 mg tablet 25 mg PO DAILY 01/25/25 02/04/25 Unknown History omeprazole 20 mg capsule,delayed 20 mg PO DAILY 01/25/25 02/04/25 Unknown History release sertraline 50 mg tablet 50 mg PO DAILY 01/25/25 02/04/25 Unknown History upadacitinib 15 mg tablet,extended 15 mg PO DAILY 01/25/25 02/04/25 Unknown History release 24 hr (Rinvoq) acetaminophen 500 mg tablet 1,000 mg PO Q6H PRN Pain 01/26/25 02/04/25 Unknown History Exam Height,Weight and Vital Signs: Height 5 ft 4.5 in Weight 86.183 kg Pertinent Lab Results Pertinent Lab Results: [facility] 06/2024 [place] Assessment and Plan Assessment Anesthesia Assessment: Chart Reviewed Documented by User: Spike Barreto MD 02/04/25 08:03 [facility] Past Medical History Medical History IBS (irritable bowel syndrome) Type 2 diabetes mellitus Chronic fatigue Left sided sciatica Depression Anxiety Psoriasis DJD (degenerative joint disease) Gout Arthritis Wears dentures Pre-diabetes Leg pain, bilateral Back pain GERD (gastroesophageal reflux disease) HLD (hyperlipidemia) HTN (hypertension) Family History Family history of problems with anesthesia: No Surgical History Surgical History Hx of blepharoplasty (~2023) Hx of colonoscopy Hx of bilateral cataract extraction (~2020) History of Problems with Anesthesia: No Social History Social History Household Members: None Housing: House Are you a primary cna caregiver to a significant other at home: No Do you presently have visiting nurse or other home services: No 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 If so, by whom?: No Are you DNR?: No Advance Directives: No Advance Directives Information Provided: Yes Advance Directives on File: No Meds Allergies Allergy/AdvReac Type Severity Reaction Status Date / Time scallops Allergy Vomiting Verified 02/04/25 07:21 shrimp Allergy Vomiting Verified 02/04/25 07:21 Home Medications ?Medication ?Instructions ?Recorded ?Confirmed ?Last Taken ?Type atenolol 50 mg tablet 50 mg PO DAILY 01/25/25 02/04/25 Unknown History atorvastatin 80 mg tablet 80 mg PO DAILY 01/25/25 02/04/25 Unknown History cyclobenzaprine 10 mg tablet 10 mg PO TID PRN Muscle Spasm 01/25/25 02/04/25 Unknown History dicyclomine 10 mg capsule 10 mg PO QID 01/25/25 02/04/25 Unknown History empagliflozin 10 mg tablet 10 mg PO DAILY 01/25/25 02/04/25 Unknown History (Jardiance) evolocumab 140 mg/mL subcutaneous 140 mg subcut Q2W 01/25/25 02/04/25 Unknown History syringe (Repatha Syringe) ezetimibe 10 mg tablet 10 mg PO DAILY 01/25/25 02/04/25 02/01/25 History famotidine 40 mg tablet 40 mg PO BEDTIME 01/25/25 02/04/25 Unknown History fenofibrate 160 mg tablet 160 mg PO DAILY 01/25/25 02/04/25 Unknown History gabapentin 800 mg tablet 800 mg PO TID 01/25/25 02/04/25 Unknown History lisinopril 10 mg tablet 10 mg PO DAILY 01/25/25 02/04/25 Unknown History lisinopril 40 mg tablet 40 mg PO DAILY 01/25/25 02/04/25 Unknown History losartan 25 mg tablet 25 mg PO DAILY 01/25/25 02/04/25 Unknown History omeprazole 20 mg capsule,delayed 20 mg PO DAILY 01/25/25 02/04/25 Unknown History release sertraline 50 mg tablet 50 mg PO DAILY 01/25/25 02/04/25 Unknown History upadacitinib 15 mg tablet,extended 15 mg PO DAILY 01/25/25 02/04/25 Unknown History release 24 hr (Rinvoq) acetaminophen 500 mg tablet 1,000 mg PO Q6H PRN Pain 01/26/25 02/04/25 Unknown History Exam Exam Date and Time: 02/04/25 Airway Mallampati Class: II TM Dist: >3cm Denture: Upper Heart: rrr Lungs: unlabored Assessment and Plan Assessment Anesthesia Assessment: Anesthesia Plan Discussed Final Anesthetic Review Family History of Problems with Anesthesia: No History of Problems with Anesthesia: No NPO: Yes ASA Class: III Final Preanesthetic Review: No Changes in Pt Med Stat, Meds/Allgs Chart Reviewed, Consent Obtained/Reviewed and Anes Risks/Benef Reviewed Patient Risk: Low Procedure Risk: Low Anesthetic Plan Anesthetic Plan: GA Disposition: Standard PACU
--- NOTE | 2025-02-02 16:16 | P.DS_ITS ---
DS: Providers Provider Date of Service: 02/04/25 Date of discharge: 02/04/25 Primary care physician: Ryan Loving MD Admitting clinician: Adelso Blakely DS: Diagnosis Discharge Diagnosis (1) Lumbar disc herniation: Status: Acute DS: Summary Time Attestation Discharge Coordination Time (in mins): 5 Quality: Safe Use of Opioids Does Pt have an Active Cancer Diagnosis on the Problem List?: No Quality: Stroke Does the patient have a stroke diagnosis?: No Physical Exam Vital Signs: Vital Signs: BMI result Body Mass Index 32.1 Discharge Plan Discharge Patient Disposition: Home, Self-Care Referrals: Ryan Loving MD [Primary Care Provider, Internal Medicine] - 1 Week Discharge Medications: New docusate sodium [Colace] 100 mg capsule 100 mg PO BID Qty: 20 0RF oxycodone 5 mg tablet 5 mg PO Q4H PRN (Reason: pain) Qty: 20 0RF Rx Instructions: Partial Fill upon patient request. Continued cyclobenzaprine 10 mg tablet 10 mg PO TID PRN (Reason: Muscle Spasm) atorvastatin 80 mg tablet 80 mg PO DAILY famotidine 40 mg tablet 40 mg PO BEDTIME gabapentin 800 mg tablet 800 mg PO TID lisinopril 10 mg tablet 10 mg PO DAILY losartan 25 mg tablet 25 mg PO DAILY omeprazole 20 mg capsule,delayed release(DR/EC) 20 mg PO DAILY lisinopril 40 mg tablet 40 mg PO DAILY sertraline 50 mg tablet 50 mg PO DAILY dicyclomine 10 mg capsule 10 mg PO QID atenolol 50 mg tablet 50 mg PO DAILY ezetimibe 10 mg tablet 10 mg PO DAILY fenofibrate 160 mg tablet 160 mg PO DAILY Jardiance 10 mg tablet 10 mg PO DAILY Repatha Syringe 140 mg/mL syringe 140 mg SUBCUT Q2W Rinvoq 15 mg Tablet Extended Release 24 Hr 15 mg PO DAILY acetaminophen 500 mg Tablet 1,000 mg PO Q6H PRN (Reason: Pain) Discharge Orders: Discharge Order (Routine); Ordered 02/04/25 Ordered By: Ryan Jimenez Diet: Advance to usual diet Activity on Discharge: As tolerated Activity Restrictions/Additional Instructions: After your spinal surgery we ask you to observe the following restrictions/guidelines: Activity: It is normal to feel some discomfort as you increase your activity, but that will improve with time. We ask you avoid heavy lifting or acitivities that cause pain. As a general rule, 8lbs is a safe limit for lifting right after surgery. Walk as much as you feel comfortable but not to exhaustion. You will feel extra tired the first few days after surgery. Stay well hydrated. It is OK to walk up and down stairs You may return to driving when you are off narcotics (such as vicodin, oxycodone, dilaudid, etc), and you are back to normal functional capacity. If you have any concerns please check with office before driving. Return to work is specific to each patient and each surgery, so please speak with your doctor/PA at first follow up. Please bring paperwork such as FMLA at that time if you need it filled out. Medications: For optimum pain control, it is best to start with a combination of 500 mg of Tylenol every 4 hours with 600 mg of Motrin every 8 hours, and use narcotics as needed in between for breakthrough pain. We will give you a short supply of narcotics after surgery (usually one weeks worth). If you need more please call the office but do not use more than prescribed. You will need to give our office 48 hours notice if you need narcotics refilled and we do not fill narcotics on weekends or evenings. If you are on a narcotic, it is a good idea to take a stool softener such as colace or senna to avoid constipation If you take blood thinner such as aspirin, Plavix, Coumadin, Effient, Eliquis etc for conditions such as Afib, DVT, Pulmonary embolus, coronary disease, stents etc please speak with your surgeon about specific details as to when you can resume these medications. Follow up: Please call the office, , after surgery to arrange a 3 week follow up for wound check. Wound Care: You may remove your dressing on the first day after surgery. ?You may ?leave open to air. Please do not remove the steri strips underneath. they will fall off on their own in one week. IT IS NORMAL FOR THE WOUND TO OOZE OR BE BLOODY FOR A FEW DAYS AFTER SURGERY. ?IF THIS HAPPENS JUST PLACE NEW DRESSING OVER IT TO AVOID STAINING CLOTHES. You may shower on post op day # 1 We ask that you do not let the water soak the wound. If it does get wet, just towel dry lightly. Please do not scrub your incision or place any type of chemical/ointment on the wound. No tub baths, pools or jacuzzis for one month. If you have any leaking or redness from your wound, or fevers, please call office Print Language: Bruneian
[2025-02-04] VITALS (7 sets, daily range): BP systolic 152–190; BP diastolic 68–89; PULSE 59–84; RESP 11–18; TEMP 36.1–36.9; O2SAT 90–98; BMI 31.9
--- NOTE | ~2025-02-04 | FL_ITS ---
EXAMINATION: XR FLUOROSCOPY WITH IMAGES CLINICAL INFORMATION: L1-2 microdiscectomy COMPARISON: None available. TECHNIQUE: Fluoroscopy time: 7 seconds DAP: 2.7 mGy Images: 1 FINDINGS: Fluoroscopy provided for procedure. Single image demonstrates surgical instruments projected posteriorly at the level of the upper lumbar spine. No radiologist present. FL/FL guidance in OR IMPRESSION: Fluoroscopy provided for procedure. See procedure report for details. Electronically signed by: Jem Lucero MD 02/05/2025 08:52 AM [facility]
[2025-02-04 07:07] LABS: Glucose, Whole Blood 148 mg/dL (60-115)
--- NOTE | 2025-02-04 07:07 | MHC.SHP ---
Pre-Procedural Eval Section A - 24 Hr Update-Section A only Date of Service: 02/04/25 The patient is an INPATIENT: No Changes since office visit: No Cold of Flu in the past 2 weeks, No New Medical Problems, No Changes in Medication and No Patient answered all questions The patient has been examined within 24 hours of the surgical procedure. The History & Physical has been completed within 30 days and I have reviewed it.: No Section B - Complete if H&P > 30 days Chief Complaint: Other intervertebral disc displacement, lumbar Allergies: Allergies Allergy/AdvReac Type Severity Reaction Status Date / Time No Known Allergies Allergy Verified 01/25/25 16:53 Review of Systems Sugical H&P ROS: Negative: Constitution, Cardiovascular, Respiratory, Neurological, Psychiatric, Hem-Onc, Allergic/Immunologic, Gastrointestinal, Genitourinary, Musculoskeletal, Integumentary, Endocrine and Eyes/Ears/Nose/Throat Exam Surgical H&P Exam: Normal: HEENT, Normal: Heart, Normal: Lungs, Normal: Extremities, Normal: Abdomen, Normal: Skin and Normal: Neurological (awke, alert,oriented x 3 ) Plan Diagnosis/Plan: Unchanged right L1-2 microdiskectomy Time Spent With Patient Time: Total time managing care of this patient today _5___ minutes.
[2025-02-04] MEDS: Lactated Ringers 1,000 ML 100 ML IVCONT (07:29)
--- NOTE | 2025-02-04 08:55 | P.OP_ITS ---
Operative Note Operative Note Date of Service: 02/04/25 Narrative: Preoperative diagnosis: Right lumbar radiculopathy due to disc herniation Postoperative diagnosis: Same Procedure: Right L1-L2 lumbar microdiskectomy with microscope Surgeon: Adelso Blakely MD, PhD Maintenance Controller: khushboo Sandoval Suspicious for right lumbar radiculopathy. MRI shows a disc herniation L1-L2 compressing the right L2 nerve root The patient was offered a lumbar microdiskectomy to decompress the nerve root. The procedure complications were explained. The patient was consented. The patient was brought to the operating room and endotracheally intubated. The patient was turned in a prone position on the Martin frame. Prepping and draping was done followed by time-out. A mid lumbar incision was made followed by release of the paravertebral muscles on the right side to expose the L1-L2 interspace. An intraoperative x-rays obtained to confirm the correct level. The microscope was brought in. A L1-L2 laminotomy and partial facetectomy was done followed by opening of the flavum ligament. The L2 nerve root was identified and retracted medially to expose the L1-L2 disc space. I could not palpate a disc herniation medial from the L2 nerve root. The operative area did not allow me to maneuver to much in the vicinity of the spinal cord. I was able to get a curved curette medial from the nerve root but was not able to retrieve any disc fragments. A nerve hook could be easily passed under the nerve root and no resistance was found. I decided to expand the L2 laminotomy to make sure that the L2 nerve root was free over its trajectory. Hemostasis was done. The microscope was removed. Marcaine was injected intramuscularly.The incision was closed in two layers. Steri-Strips used to approximate the incision. An op-site were taken there was used to cover the incision. All sponge and needle counts were correct. Patient was extubated and transported in stable condition to recovery room. this procedure was done with the aid of a physician oceanographer assistant who performed the initial exposure until the microscope was brought in and performed the closure of the incision. Anesthesia: General Blood loss: 10 mL Complications: None Specimen: None Surgical time: 1 hour Disposition: Discharge home
[2025-02-04] MEDS: oxyCODONE HCl Immed Release 5 MG TABLET PO (09:55)
== END 2025-02-04 11:15 | disposition home or self-care (01) ==
LOC: HO.SSS 06:46
PROVIDERS: PCP Internal Medicine; Visit Provider Neurological Surgery
PROC: (CPT 63030; principal; 2025-02-04 07:30)
DX: M51.16 Intervertebral disc disorders with radiculopathy, lumbar region (principal); M51.26 Other intervertebral disc displacement, lumbar region; M79.651 Pain in right thigh; M48.061 Spinal stenosis, lumbar region without neurogenic claudication; M81.0 Age-related osteoporosis without current pathological fracture; I10 Essential (primary) hypertension; E78.5 Hyperlipidemia, unspecified; E11.9 Type 2 diabetes mellitus without complications; R53.82 Chronic fatigue, unspecified; M19.90 Unspecified osteoarthritis, unspecified site; M10.9 Gout, unspecified; F32.A Depression, unspecified; F41.9 Anxiety disorder, unspecified; Z79.84 Long term (current) use of oral hypoglycemic drugs; Z79.899 Other long term (current) drug therapy; Z98.890 Other specified postprocedural states; Z87.891 Personal history of nicotine dependence
CPT/HCPCS: 63030; 82947; J0131; J0690; J1100; J1171; J1596; J2003; J2250; J2405; J2704; J3010

== ENCOUNTER → 2025-02-04 06:45 | Outpatient (BNV) | payer MEDICARE, SELFPAY | PROVIDERS: PCP Internal Medicine; Visit Provider Neurological Surgery | DX: M51.26 Other intervertebral disc displacement, lumbar region (principal) | CPT/HCPCS: 63030; 99499 ==